=== PATIENT | male | born 1950 | race Caucasian/White ===

== ENCOUNTER 2019-03-13 13:35 | Inpatient (IN) | payer OTHER, MEDICARE ==
[~2019-03-13] VITALS: Ht 182.9 cm; Wt 103.0 kg
[2019-03-13] MEDS ORDERED: predniSONE 20 MG TABLET PO ONE (14:30)
[2019-03-13 14:45] VITALS: BP 171/99
--- NOTE | 2019-03-13 14:55 | RAD ---
CT HEAD WO CONTRAST Clinical indications: Left lower extremity weakness. COMPARISON: None available. Technique: Noncontrast axial cross sectional scanning of the head was performed. PQRS compliance Statement One or more of the following individualized dose reduction techniques were utilized for this study: 1. Automated exposure control 2. Adjustment of the mA and/or kV according to patient size 3. Use of iterative reconstruction technique Findings: No acute intracranial hemorrhage or midline shift or mass-effect or hydrocephalus or extra-axial fluid collection is seen. No focal hypodense area or sulci effacement is seen to indicate an acute infarct or edema radiographically. No skull fracture or pneumocephalus is seen. No opacification of the mastoid sinuses or the middle ear cavities or the paranasal sinuses is seen. The maxillary sinuses are not completely seen in this study. Impression: No acute intracranial abnormality is seen. Electronically signed by: Kaden Reilly MD (03/13/2019 2:51 PM) [id number]
--- NOTE | 2019-03-13 14:59 | RAD ---
4 view study of the left knee Clinical indications: Left knee pain. No known injury. FINDINGS: No acute fracture or dislocation or lytic process is seen. The patella is normally aligned. There is mild degenerative spurring of the patellofemoral joint compartment. No significant joint space narrowing or spurring of the medial or lateral tibiofemoral joint compartments is seen. No significant left knee joint effusion is seen radiographically. Calcified arterial atheromatous disease is present IMPRESSION: No significant osseous abnormality. Electronically signed by: Kaden Reilly MD (03/13/2019 2:56 PM) [email or web address]
--- NOTE | 2019-03-13 15:03 | RAD ---
AP view of the pelvis and two-view study of the left hip Clinical indications: Left hip pain. No known injury. FINDINGS: No acute fracture or dislocation is seen. There is a radiolucent lesion of the left iliac bone measuring 3.9 cm. There is a radiolucent lesion of the proximal shaft of the left femur measuring 7.8 cm in length. Proximal to this area in the subtrochanteric region of the proximal femur is another smaller lucent lesion measuring 1.2 cm. Synovial cyst of the left femoral neck is seen. IMPRESSION: Lytic lesions of the proximal left femur and the left iliac bone consistent with osseous metastatic disease or multiple myeloma. No acute fracture. The lesion within the proximal left femoral shaft occupies the entire width of the shaft here. There is endosteal scalloping as well. Therefore, this may predispose to pathologic fracture. Electronically signed by: Kaden Reilly MD (03/13/2019 3:00 PM) [email or web address]
--- NOTE | 2019-03-13 15:07 | RAD ---
Three-view study lumbar spine Clinical indications: Low back pain. FINDINGS: No compression fracture discitis or lytic process is evident. No anterolisthesis is evident. There is partial autofusion of L4-5 and L5-S1 disc spaces. Asymmetric syndesmophytes are seen. There is asymmetric ankylosis of the upper aspect of the left SI joint. Findings may be seen with seronegative spondyloarthropathy. The transverse processes are intact. IMPRESSION: No acute compression fracture. Seronegative spondyloarthropathy. Electronically signed by: Kaden Reilly MD (03/13/2019 3:04 PM) [email or web address]
[2019-03-13 16:23] LABS: BASO # 0.1 x10^3/uL (0.0-0.2); BASO % 1 % (0-3); EOS # 0.2 x10^3/uL (0.0-0.7); EOS % 2 % (0-3); HEMOGLOBIN 16.8 g/dL (13.0-17.5); LYMPH % 10 % (24-48); MEAN CORPUSCULAR HEMOGLOBIN 36 pg (25-35); MEAN CORPUSCULAR HGB CONC 36 g/dL (31-37); MEAN CORPUSCULAR VOLUME 100 fL (79-100); MONO % 10 % (0-9); NEUT # 7.4 x10^3/uL (1.8-7.7); NEUT % 76 % (31-73); PLATELET COUNT 112 x10^3/uL (140-400); RED BLOOD COUNT 4.72 x10^6/uL (4.30-5.70); RED CELL DISTRIBUTION WIDTH 12.9 % (11.5-14.5); WHITE BLOOD COUNT 9.7 x10^3/uL (4.0-11.0)
[2019-03-13 16:29] LABS: PROTHROMBIN TIME PATIENT 16.2 SEC (11.7-14.0)
[2019-03-13] MEDS ORDERED: ACETAMINOPHEN 325 MG TABLET. PO PRN (16:30)
[2019-03-13] MEDS ORDERED: ONDANSETRON PF 4 MG/2 ML VIAL. IV PRN (16:30)
[2019-03-13] MEDS ORDERED: MORPHINE SULFATE 4 MG/ML VIAL. IV PRN (16:30)
[2019-03-13 16:42] LABS: CALCIUM 9.7 mg/dL (8.5-10.1); CREATININE 0.8 mg/dL (0.7-1.3); GFR 96.4; POTASSIUM 3.9 mmol/L (3.5-5.1)
[2019-03-13 16:52] LABS: ALBUMIN 3.6 g/dL (3.4-5.0); ALBUMIN/GLOBULIN RATIO 0.9 (1.0-1.7); TOTAL PROTEIN 7.4 g/dL (6.4-8.2)
--- NOTE | 2019-03-13 18:05 | PHYS DOC ---
Past Medical History Past Medical History: Hypertension Past Surgical History: Other Additional Past Surgical Histo: SKIN CANCER REMOVED Alcohol Use: None Drug Use: None Adult General Chief Complaint Chief Complaint: LOWER EXT PAIN HPI HPI Patient is a 68 year old male with history of hypertension who presents to the ED today complaining of mild pain on the left thigh that began on Sunday. Patient states the pain is worse when he is bearing weight on the left lower extremity. He states he feels like his left leg will give out he he bears weight on it. Patient denies any injury. Denies anything specifically relieving the pain. He describes the pain as sharp and intermittent. Review of Systems Review of Systems Constitutional: Denies fever or chills [] Eyes: Denies change in visual acuity, redness, or eye pain [] HENT: Denies nasal congestion or sore throat [] Respiratory: Denies cough or shortness of breath [] Cardiovascular: No additional information not addressed in HPI [] GI: Denies abdominal pain, nausea, vomiting, bloody stools or diarrhea [] : Denies dysuria or hematuria [] Musculoskeletal: Reports left thigh pain Integument: Denies rash or skin lesions [] Neurologic: Denies headache, focal weakness or sensory changes [] All other systems were reviewed and found to be within normal limits, except as documented in this note. Current Medications Current Medications Current Medications Medications (Trade) Dose Ordered Sig/Babita Start Time Stop Time Status Last Admin Dose Admin Prednisone (Prednisone) 60 mg 1X ONCE 03/13/19 14:30 03/13/19 14:31 DC 03/13/19 14:52 60 MG Allergies Allergies Allergies Coded Allergies Type Severity Reaction Last Updated Verified No Known Drug Allergies 03/13/19 No Physical Exam Physical Exam Constitutional: Well developed, well nourished, no acute distress, non-toxic appearance. [] HENT: Normocephalic, atraumatic, bilateral external ears normal, oropharynx moist, no oral exudates, nose normal. [] Eyes: PERRLA, EOMI, conjunctiva normal, no discharge. [] Neck: Normal range of motion, no tenderness, supple, no stridor. [] Cardiovascular:Heart rate regular rhythm, no murmur [] Lungs & Thorax: Bilateral breath sounds clear to auscultation [] Abdomen: Bowel sounds normal, soft, no tenderness, no masses, no pulsatile masses. [] Skin: Warm, dry, no erythema, no rash. [] Back: No tenderness, no CVA tenderness. [] Extremities: No tenderness, no cyanosis, no clubbing, ROM intact, no edema. On weight bearing patient is favoring the LLE Neurologic: Alert and oriented X 3, normal motor function, normal sensory function, no focal deficits noted. [] Psychologic: Affect normal, judgement normal, mood normal. [] Current Patient Data Vital Signs Vital Signs Date Time Temp Pulse Resp B/P (MAP) Pulse Ox O2 Delivery O2 Flow Rate FiO2 03/13/19 14:02 98.0 78 20 201/115 (143) 98 Room Air 98.0 EKG EKG [] Radiology/Procedures Radiology/Procedures []PROCEDURE: CT HEAD WO CONTRAST CT HEAD WO CONTRAST Clinical indications: Left lower extremity weakness. COMPARISON: None available. Technique: Noncontrast axial cross sectional scanning of the head was performed. PQRS compliance Statement One or more of the following individualized dose reduction techniques were utilized for this study: 1. Automated exposure control 2. Adjustment of the mA and/or kV according to patient size 3. Use of iterative reconstruction technique Findings: No acute intracranial hemorrhage or midline shift or mass-effect or hydrocephalus or extra-axial fluid collection is seen. No focal hypodense area or sulci effacement is seen to indicate an acute infarct or edema radiographically. No skull fracture or pneumocephalus is seen. No opacification of the mastoid sinuses or the middle ear cavities or the paranasal sinuses is seen. The maxillary sinuses are not completely seen in this study. Impression: No acute intracranial abnormality is seen. Electronically signed by: Kaden Reilly MD (03/13/2019 2:51 PM) [email or web address] DICTATED and SIGNED BY: KADEN REILLY MD DATE: 03/13/19 1451 PROCEDURE: KNEE LEFT 4V 4 view study of the left knee Clinical indications: Left knee pain. No known injury. FINDINGS: No acute fracture or dislocation or lytic process is seen. The patella is normally aligned. There is mild degenerative spurring of the patellofemoral joint compartment. No significant joint space narrowing or spurring of the medial or lateral tibiofemoral joint compartments is seen. No significant left knee joint effusion is seen radiographically. Calcified arterial atheromatous disease is present IMPRESSION: No significant osseous abnormality. Electronically signed by: Kaden Reilly MD (03/13/2019 2:56 PM) [id number] DICTATED and SIGNED BY: KADEN REILLY MD DATE: 03/13/19 1456 PROCEDURE: LUMBAR SPINE 2-3V Three-view study lumbar spine Clinical indications: Low back pain. FINDINGS: No compression fracture discitis or lytic process is evident. No anterolisthesis is evident. There is partial autofusion of L4-5 and L5-S1 disc spaces. Asymmetric syndesmophytes are seen. There is asymmetric ankylosis of the upper aspect of the left SI joint. Findings may be seen with seronegative spondyloarthropathy. The transverse processes are intact. IMPRESSION: No acute compression fracture. Seronegative spondyloarthropathy. Electronically signed by: Kaden Reilly MD (03/13/2019 3:04 PM) [id number] DICTATED and SIGNED BY: AKDEN REILLY MD DATE: 03/13/19 1504 PROCEDURE: LUMBAR SPINE 2-3V Three-view study lumbar spine Clinical indications: Low back pain. FINDINGS: No compression fracture discitis or lytic process is evident. No anterolisthesis is evident. There is partial autofusion of L4-5 and L5-S1 disc spaces. Asymmetric syndesmophytes are seen. There is asymmetric ankylosis of the upper aspect of the left SI joint. Findings may be seen with seronegative spondyloarthropathy. The transverse processes are intact. IMPRESSION: No acute compression fracture. Seronegative spondyloarthropathy. Electronically signed by: Kaden Reilly MD (03/13/2019 3:04 PM) [id number] DICTATED and SIGNED BY: KADEN REILLY MD DATE: 03/13/19 1504 PROCEDURE: HIP LEFT 2V WITH PELVIS AP view of the pelvis and two-view study of the left hip Clinical indications: Left hip pain. No known injury. FINDINGS: No acute fracture or dislocation is seen. There is a radiolucent lesion of the left iliac bone measuring 3.9 cm. There is a radiolucent lesion of the proximal shaft of the left femur measuring 7.8 cm in length. Proximal to this area in the subtrochanteric region of the proximal femur is another smaller lucent lesion measuring 1.2 cm. Synovial cyst of the left femoral neck is seen. IMPRESSION: Lytic lesions of the proximal left femur and the left iliac bone consistent with osseous metastatic disease or multiple myeloma. No acute fracture. The lesion within the proximal left femoral shaft occupies the entire width of the shaft here. There is endosteal scalloping as well. Therefore, this may predispose to pathologic fracture. Electronically signed by: Kaden Reilly MD (03/13/2019 3:00 PM) [email or web address] DICTATED and SIGNED BY: KADEN REILLY MD DATE: 03/13/19 1500 Course & Med Decision Making Course & Med Decision Making Pertinent Labs and Imaging studies reviewed. (See chart for details) This is a 68-year-old male patient presenting to the ED today complaining of left thigh pain since Sunday. Left hip x-rays including pelvis and femur x-rays noted for-Lytic lesions of the proximal left femur and the left iliac bone consistent with osseous metastatic disease or multiple myeloma. Spoke with Dr. Fleming who accepted patient for admission Spoke to 's APPEALS NURSE who will relay message to Dr. Lonnie Blackmon Disclaimer Lorri Disclaimer This electronic medical record was generated, in whole or in part, using a voice recognition dictation system. Departure Departure Impression: Primary Impression: Multiple myeloma Disposition: ADMITTED INPATIENT Condition: STABLE Referrals: UNKNOWN PCP NAME (PCP) Problem Qualifiers Primary Impression: Multiple myeloma Multiple myeloma remission status: unspecified Qualified Codes: C90.00 - Multiple myeloma not having achieved remission RM DEL TORO APRN Mar 13, 2019 18:05
--- NOTE | 2019-03-13 18:11 | HP ---
ADMIT DATE: 03/13/2019 CHIEF COMPLAINT: Left leg pain. HISTORY OF PRESENT ILLNESS: The patient is a pleasant middle-aged male, who presented with left leg pain. It is going from the hip down below the knee. We initially thought it might be sciatica, but we did some imaging showing a lytic lesion suspicious for multiple myeloma. I discussed the case with ER physician. We are going to admit the patient and consult Dr. Braden. PAST MEDICAL HISTORY: Benign. ALLERGIES: None. FAMILY HISTORY: Diabetes. SOCIAL HISTORY: Does not drink, smoke or take drugs. MEDICATIONS: Reviewed, please refer to the MRAD. REVIEW OF SYSTEMS: GENERAL: No history of weight change, weakness or fevers. SKIN: No bruising, hair changes or rashes. EYES: No blurred, double or loss of vision. NOSE AND THROAT: No history of nosebleeds, hoarseness or sore throat. HEART: No history of palpitations, chest pain or shortness of breath on exertion. LUNGS: Denies cough, hemoptysis, wheezing or shortness of breath. GASTROINTESTINAL: Denies changes in appetite, nausea, vomiting, diarrhea or constipation. GENITOURINARY: No history of frequency, urgency, hesitancy or nocturia. NEUROLOGIC: Denies history of numbness, tingling, tremor or weakness. PSYCHIATRIC: No history of panic, anxiety or depression. ENDOCRINE: No history of heat or cold intolerance, polyuria or polydipsia. EXTREMITIES: He complains of left leg pain. PHYSICAL EXAMINATION: VITALS: Within normal limits and are stable. GENERAL: No apparent distress. Alert and oriented. HEENT: Head is normocephalic, atraumatic, pupils were equally round and reactive to light and accommodation. NECK: Supple, no JVD, no thyromegaly was noted. LUNGS: Clear to auscultation in all lung vu without rhonchi or wheezing. HEART: RRR, S1, S2 present. Peripheral pulses intact, no obvious murmurs were noted. ABDOMEN: Soft, nontender. Positive bowel sounds no organomegaly, normal bowel sounds. EXTREMITIES: The left leg is tender to touch, but otherwise normal. NEUROLOGIC: Normal speech, normal tone. A & O x3, moves all extremities, no obvious focal deficits. PSYCHIATRIC: Normal affect, normal mood. Stable. SKIN: No ulcerations or rashes, good skin turgor, no jaundice. VASCULAR: Good capillary refill, neurovascular bundle appears to be intact. LABORATORY DATA: White count is 9, hemoglobin 16.8, platelets 112. INR is 1.3. Electrolytes are normal other than glucose of 258, AST little high at 39, albumin normal at 3.6. ASSESSMENT AND PLAN: Lytic lesion of the left leg with pain, suspect possible multiple myeloma. The patient has been admitted. We will consult Dr. Braden. IV fluids, home meds, frequent labs, PT, OT, DVT prophylaxis. Full code. PATY BRUCE DO DR: NELIDA/andria JOB#: [id number] / [id number]
--- NOTE | 2019-03-13 18:18 | NUR ---
This RN received report from ERI Rick in ER at approx 1630. Pt arrived on unit at approx 1700. Pt oriented to room, call light, and fresh water given. Pt reports no pain at this time. Will continue to monitor pt.
[2019-03-13] MEDS: IV NORMAL SALINE 1000ML BAG 1,000 ML IV SCH (18:30)
[2019-03-13 19:00] VITALS: BP 150/86
[2019-03-13 23:00] VITALS: BP 139/75
[2019-03-14 03:00] VITALS: BP 151/89
[2019-03-14] MEDS: IV NORMAL SALINE 1000ML BAG 1,000 ML IV SCH ×2 (05:36→20:10)
[2019-03-14 07:00] VITALS: BP 179/79
[2019-03-14] MEDS ORDERED: CONTRAST GIVEN. MC PRN (09:30)
[2019-03-14] MEDS ORDERED: IOHEXOL 300 MG/ML 100ML VIAL. IV ONE (09:30)
[2019-03-14] MEDS ORDERED: IOHEXOL 240 MG/ML 50ML VIAL. PO ONE (09:30)
--- NOTE | 2019-03-14 10:15 | NUR ---
Assumed pt care at this time. Pt in bed watching TV. NPO for procedure. Denies any needs at this time. Call light within reach. Will return to monitor.
--- NOTE | 2019-03-14 10:51 | NUR ---
Received call from David in [place] he would like to hydrate pt for bone scan. Requesting pt drinks a pitcher of water. Updated pt on POC and filled water pitcher.
[2019-03-14 11:00] VITALS: BP 136/79
[2019-03-14] MEDS ORDERED: DEXTROSE 50% 25 GM / 50ML DISP.SYRIN. IV PRN (12:00)
[2019-03-14] MEDS: INSULIN LISPRO 300 UNITS/3 ML VIAL. SQ SCH ×2 (12:00→17:00)
--- NOTE | 2019-03-14 13:13 | CONS ---
DATE OF CONSULTATION: 03/14/2019 REQUESTING PHYSICIAN: Ferdinand Fleming MD REASON FOR CONSULTATION: Lytic bone lesions concerning for metastasis versus multiple myeloma. HISTORY OF PRESENT ILLNESS: The patient is a 68-year-old gentleman with a history of hypertension, who presented to the Emergency Room at [facility] on 03/13/2019 with complaints of pain in the left thigh region that began a few weeks prior to admission, but significantly worse from 03/09/2019. He feels that he is not able to bear weight on the left lower extremity and he is afraid that he is going to give away. He denies any injuries. He denies any other bone pains. No fevers, chills or night sweats. No loss of weight or loss of appetite. No hematemesis, melena or hematochezia. No dysphagia. No hemoptysis or hematuria. He underwent further workup with x-rays of the left hip and pelvis on 03/13/2019, which revealed lytic lesions of the proximal left femur and the left iliac bone consistent with osseous metastatic disease or multiple myeloma. The lesion within the proximal left femoral shaft occupies the entire width of the shaft and there is endosteal scalloping as well. Therefore, this may predispose to pathologic fracture. He underwent a CT scan of the head without contrast on 03/13/2019 which revealed no acute intracranial abnormalities. X-rays of the lumbar spine did not reveal any acute compression fracture. I was asked to see the patient for further evaluation of possible bone metastasis. PAST MEDICAL HISTORY: Hypertension and skin cancer. SOCIAL HISTORY: No smoking or alcohol abuse. He has been chewing tobacco for at least 25 years prior to admission to [facility]. FAMILY HISTORY: Negative for malignancy. REVIEW OF SYSTEMS: A 12-point review of system was performed. Pertinent positives are mentioned in the history of present illness. Rest of the system review is negative. PHYSICAL EXAMINATION: GENERAL APPEARANCE: The patient is a 68-year-old gentleman who is well built and nourished and in no acute cardiorespiratory distress. VITAL SIGNS: Blood pressure 136/79, temperature 97.6. HEENT: Atraumatic, normocephalic. EYES: No icterus. NECK: Supple. CHEST: Bilaterally symmetrical. No crepitations or rhonchi heard. HEART: S1, S2 normal. ABDOMEN: Soft, nontender. CENTRAL NERVOUS SYSTEM: No focal deficits. LYMPHATICS: No lymphadenopathy. SKIN: No rashes. PSYCHOLOGIC: Mood and affect are appropriate. MUSCULOSKELETAL: No joint effusions. LABORATORY DATA: WBC 9.7, hemoglobin 16.8, platelet count 112. Sodium 138, potassium 3.9, creatinine 0.8, glucose 258, calcium 9.7, total bilirubin 1.0, AST 39, ALT 34, alkaline phosphatase 91, total protein 7.4, albumin 3.6. PSA of 1.25. IMPRESSION AND PLAN: 1. Bone lesions clinically consistent with bone metastasis. X-rays of the hip and pelvis on 03/13/2019 revealed lytic lesions of the proximal left femur and left iliac bone consistent with osseous metastatic disease or multiple myeloma. The lesion within the proximal left femoral shaft occupies the entire width of the shaft and this may predispose to pathologic fracture. Hence, I will consult Orthopedic Surgery for possible prophylactic surgery. I will also consult Interventional Radiology for biopsy. I will consult Radiation Oncology in preparation for possible need for palliative radiation therapy subsequently. Since the hemoglobin, creatinine and calcium are normal, it is unlikely that this is multiple myeloma. However, I will obtain serum protein electrophoresis and immunofixation studies and serum free light chains. I will obtain a CT chest, abdomen and pelvis to evaluate for primary malignancy. PSA normal at 1.25 on 03/14/2019. I will also obtain a bone scan to evaluate the rest of the bones. I discussed in detail with the patient and he understands and agrees with the plan. I will continue to monitor closely. 2. Thrombocytopenia, mild. Hemoglobin and WBC is normal, but the platelets are 112 on 03/13/2019. I will continue to monitor. ESTHER BOURGEOIS MD DR: SHELLEY/andria JOB#: [id number] / [id number] [place]
[2019-03-14] MEDS ORDERED: IOHEXOL 240 MG/ML 50ML VIAL. ONE (14:25)
[2019-03-14] MEDS ORDERED: IOHEXOL 300 MG/ML 100ML VIAL. ONE (14:26)
[2019-03-14 15:00] VITALS: BP 177/98
--- NOTE | 2019-03-14 15:54 | PDOC ---
PROGRESS NOTES Chief Complaint Chief Complaint bone lesion, suspect malignancy weakness, compromise str of femur, high risk of fracture, may need surg hip pain obese, BMI 31 History of Present Illness History of Present Illness onc, rad onc consult, w/u lesion, myeloma poss, but no skull lesions ortho consult for hip bone weakness, Dr. De Anda reviewed all labs and images with patient, I participated some, bone biopsy under CT planned for 03/17 Vitals Vitals Vital Signs Date Time Temp Pulse Resp B/P (MAP) Pulse Ox O2 Delivery O2 Flow Rate FiO2 03/14/19 15:00 97.7 80 16 177/98 (124) 94 Room Air 97.7 Physical Exam General: Alert, Cooperative, No acute distress Heart: Normal S1, Normal S2 Lungs: Wheezing Abdomen: Soft Extremities: No clubbing Skin: No rashes, No breakdown Labs LABS Laboratory Tests Test 03/13/19 16:07 03/14/19 10:10 White Blood Count 9.7 x10^3/uL (4.0-11.0) Red Blood Count 4.72 x10^6/uL (4.30-5.70) Hemoglobin 16.8 g/dL (13.0-17.5) Hematocrit 47.0 % (39.0-53.0) Mean Corpuscular Volume 100 fL (79-100) Mean Corpuscular Hemoglobin 36 pg (25-35) Mean Corpuscular Hemoglobin Concent 36 g/dL (31-37) Red Cell Distribution Width 12.9 % (11.5-14.5) Platelet Count 112 x10^3/uL (140-400) Neutrophils (%) (Auto) 76 % (31-73) Lymphocytes (%) (Auto) 10 % (24-48) Monocytes (%) (Auto) 10 % (0-9) Eosinophils (%) (Auto) 2 % (0-3) Basophils (%) (Auto) 1 % (0-3) Neutrophils # (Auto) 7.4 x10^3/uL (1.8-7.7) Lymphocytes # (Auto) 1.0 x10^3/uL (1.0-4.8) Monocytes # (Auto) 1.0 x10^3/uL (0.0-1.1) Eosinophils # (Auto) 0.2 x10^3/uL (0.0-0.7) Basophils # (Auto) 0.1 x10^3/uL (0.0-0.2) Prothrombin Time 16.2 SEC (11.7-14.0) Prothromb Time International Ratio 1.3 (0.8-1.1) Activated Partial Thromboplast Time 30 SEC (24-38) Sodium Level 138 mmol/L (136-145) Potassium Level 3.9 mmol/L (3.5-5.1) Chloride Level 99 mmol/L (98-107) Carbon Dioxide Level 29 mmol/L (21-32) Anion Gap 10 (6-14) Blood Urea Nitrogen 13 mg/dL (8-26) Creatinine 0.8 mg/dL (0.7-1.3) Estimated GFR (Cockcroft-Gault) 96.4 BUN/Creatinine Ratio 16 (6-20) Glucose Level 258 mg/dL (70-99) Calcium Level 9.7 mg/dL (8.5-10.1) Total Bilirubin 1.0 mg/dL (0.2-1.0) Aspartate Amino Transf (AST/SGOT) 39 U/L (15-37) Alanine Aminotransferase (ALT/SGPT) 34 U/L (16-63) Alkaline Phosphatase 91 U/L (46-116) Total Protein 7.4 g/dL (6.4-8.2) Albumin 3.6 g/dL (3.4-5.0) Albumin/Globulin Ratio 0.9 (1.0-1.7) Prostate Specific Antigen 1.25 ng/mL (0.00-4.00) Assessment and Plan Assessmemt and Plan Problems Medical Problems: (1) Multiple myeloma Status: Acute Comment Review of Relevant I have reviewed the following items terese (where applicable) has been applied. Labs Laboratory Tests Test 03/13/19 16:07 03/14/19 10:10 White Blood Count 9.7 x10^3/uL (4.0-11.0) Red Blood Count 4.72 x10^6/uL (4.30-5.70) Hemoglobin 16.8 g/dL (13.0-17.5) Hematocrit 47.0 % (39.0-53.0) Mean Corpuscular Volume 100 fL (79-100) Mean Corpuscular Hemoglobin 36 pg (25-35) Mean Corpuscular Hemoglobin Concent 36 g/dL (31-37) Red Cell Distribution Width 12.9 % (11.5-14.5) Platelet Count 112 x10^3/uL (140-400) Neutrophils (%) (Auto) 76 % (31-73) Lymphocytes (%) (Auto) 10 % (24-48) Monocytes (%) (Auto) 10 % (0-9) Eosinophils (%) (Auto) 2 % (0-3) Basophils (%) (Auto) 1 % (0-3) Neutrophils # (Auto) 7.4 x10^3/uL (1.8-7.7) Lymphocytes # (Auto) 1.0 x10^3/uL (1.0-4.8) Monocytes # (Auto) 1.0 x10^3/uL (0.0-1.1) Eosinophils # (Auto) 0.2 x10^3/uL (0.0-0.7) Basophils # (Auto) 0.1 x10^3/uL (0.0-0.2) Prothrombin Time 16.2 SEC (11.7-14.0) Prothromb Time International Ratio 1.3 (0.8-1.1) Activated Partial Thromboplast Time 30 SEC (24-38) Sodium Level 138 mmol/L (136-145) Potassium Level 3.9 mmol/L (3.5-5.1) Chloride Level 99 mmol/L (98-107) Carbon Dioxide Level 29 mmol/L (21-32) Anion Gap 10 (6-14) Blood Urea Nitrogen 13 mg/dL (8-26) Creatinine 0.8 mg/dL (0.7-1.3) Estimated GFR (Cockcroft-Gault) 96.4 BUN/Creatinine Ratio 16 (6-20) Glucose Level 258 mg/dL (70-99) Calcium Level 9.7 mg/dL (8.5-10.1) Total Bilirubin 1.0 mg/dL (0.2-1.0) Aspartate Amino Transf (AST/SGOT) 39 U/L (15-37) Alanine Aminotransferase (ALT/SGPT) 34 U/L (16-63) Alkaline Phosphatase 91 U/L (46-116) Total Protein 7.4 g/dL (6.4-8.2) Albumin 3.6 g/dL (3.4-5.0) Albumin/Globulin Ratio 0.9 (1.0-1.7) Prostate Specific Antigen 1.25 ng/mL (0.00-4.00) Laboratory Tests Test 03/13/19 16:07 03/14/19 10:10 White Blood Count 9.7 x10^3/uL (4.0-11.0) Red Blood Count 4.72 x10^6/uL (4.30-5.70) Hemoglobin 16.8 g/dL (13.0-17.5) Hematocrit 47.0 % (39.0-53.0) Mean Corpuscular Volume 100 fL (79-100) Mean Corpuscular Hemoglobin 36 pg (25-35) Mean Corpuscular Hemoglobin Concent 36 g/dL (31-37) Red Cell Distribution Width 12.9 % (11.5-14.5) Platelet Count 112 x10^3/uL (140-400) Neutrophils (%) (Auto) 76 % (31-73) Lymphocytes (%) (Auto) 10 % (24-48) Monocytes (%) (Auto) 10 % (0-9) Eosinophils (%) (Auto) 2 % (0-3) Basophils (%) (Auto) 1 % (0-3) Neutrophils # (Auto) 7.4 x10^3/uL (1.8-7.7) Lymphocytes # (Auto) 1.0 x10^3/uL (1.0-4.8) Monocytes # (Auto) 1.0 x10^3/uL (0.0-1.1) Eosinophils # (Auto) 0.2 x10^3/uL (0.0-0.7) Basophils # (Auto) 0.1 x10^3/uL (0.0-0.2) Prothrombin Time 16.2 SEC (11.7-14.0) Prothromb Time International Ratio 1.3 (0.8-1.1) Activated Partial Thromboplast Time 30 SEC (24-38) Sodium Level 138 mmol/L (136-145) Potassium Level 3.9 mmol/L (3.5-5.1) Chloride Level 99 mmol/L (98-107) Carbon Dioxide Level 29 mmol/L (21-32) Anion Gap 10 (6-14) Blood Urea Nitrogen 13 mg/dL (8-26) Creatinine 0.8 mg/dL (0.7-1.3) Estimated GFR (Cockcroft-Gault) 96.4 BUN/Creatinine Ratio 16 (6-20) Glucose Level 258 mg/dL (70-99) Calcium Level 9.7 mg/dL (8.5-10.1) Total Bilirubin 1.0 mg/dL (0.2-1.0) Aspartate Amino Transf (AST/SGOT) 39 U/L (15-37) Alanine Aminotransferase (ALT/SGPT) 34 U/L (16-63) Alkaline Phosphatase 91 U/L (46-116) Total Protein 7.4 g/dL (6.4-8.2) Albumin 3.6 g/dL (3.4-5.0) Albumin/Globulin Ratio 0.9 (1.0-1.7) Prostate Specific Antigen 1.25 ng/mL (0.00-4.00) Medications Current Medications Prednisone (Prednisone) 60 mg 1X ONCE PO Last administered on 03/13/19at 14:52; Start 03/13/19 at 14:30; Stop 03/13/19 at 14:31; Status DC Ondansetron HCl (Zofran) 4 mg PRN Q8HRS PRN IV NAUSEA/VOMITING; Start 03/13/19 at 16:30; Stop 03/14/19 at 16:29 Morphine Sulfate (Morphine Sulfate) 4 mg PRN Q2HR PRN IV PAIN; Start 03/13/19 at 16:30; Stop 03/14/19 at 16:29 Acetaminophen (Tylenol) 650 mg PRN Q4HRS PRN PO FEVER; Start 03/13/19 at 16:30; Stop 03/14/19 at 16:29 Sodium Chloride 1,000 ml @ 75 mls/hr [id number] IV Last administered on 03/14/19at 05:36; Start 03/13/19 at 17:30 Iohexol (Omnipaque 240 Mg/ml) 30 ml 1X ONCE PO Last administered on 03/14/19at 09:30; Start 03/14/19 at 09:30; Stop 03/14/19 at 09:31; Status DC Iohexol (Omnipaque 300 Mg/ml) 75 ml 1X ONCE IV Last administered on 03/14/19at 14:44; Start 03/14/19 at 09:30; Stop 03/14/19 at 09:31; Status DC Info (CONTRAST GIVEN -- Rx MONITORING) 1 each PRN DAILY PRN MC SEE COMMENTS; Start 03/14/19 at 09:30; Stop 03/16/19 at 09:29 Insulin Human Lispro (HumaLOG) 0-7 UNITS TIDWMEALS SQ ; Start 03/14/19 at 12:00 Dextrose (Dextrose 50%-Water Syringe) 12.5 gm PRN Q15MIN PRN IV SEE COMMENTS; Start 03/14/19 at 12:00 Iohexol (Omnipaque 240 Mg/ml) 50 ml STK-MED ONCE .ROUTE ; Start 03/14/19 at 14:25; Stop 03/14/19 at 14:26; Status DC Iohexol (Omnipaque 300 Mg/ml) 100 ml STK-MED ONCE .ROUTE ; Start 03/14/19 at 14: 26; Stop 03/14/19 at 14:26; Status DC Vitals/I & O Vital Sign - Last 24 Hours 03/13/19 03/13/19 03/13/19 03/13/19 16:08 16:37 17:00 19:00 Temp 97.7 97.7 Pulse 78 88 78 Resp 18 20 B/P (MAP) 198/94 (128) 175/103 (127) 150/86 (107) Pulse Ox 93 95 95 O2 Delivery Room Air Room Air Room Air Room Air 03/13/19 03/13/19 03/14/19 03/14/19 20:00 23:00 03:00 07:00 Temp 98.4 97.4 97.7 98.4 97.4 97.7 Pulse 72 73 69 Resp 20 20 18 B/P (MAP) 139/75 (96) 151/89 (109) 179/79 (112) Pulse Ox 94 98 96 O2 Delivery Room Air Room Air Room Air Room Air 03/14/19 03/14/19 03/14/19 08:00 11:00 15:00 Temp 97.6 97.7 97.6 97.7 Pulse 73 80 Resp 16 16 B/P (MAP) 136/79 (98) 177/98 (124) Pulse Ox 95 94 O2 Delivery Room Air Room Air Room Air Intake and Output 03/13/19 03/13/19 03/14/19 15:00 23:00 07:00 Intake Total 700 ml 440 ml Balance 700 ml 440 ml MAYNOR BUTTS MD Mar 14, 2019 15:54
--- NOTE | 2019-03-14 17:20 | RAD ---
Whole body bone scan Clinical indications: Bone metastatic disease. Left leg pain. TECHNIQUE: After IV infusion of 25 mCi of technetium 99m MDP, delayed anterior and posterior planar images of the skeleton were performed. Additional left and right lateral planar images of the proximal femurs were performed. COMPARISON: No previous bone scan available. FINDINGS: Bilateral renal function is evident. There is degenerative radiotracer activity seen involving the sternoclavicular joints and the AC joints and the knee joints and the feet bilaterally. There is mild degenerative activity seen involving the hip joints bilaterally. There is moderate degenerative arthritis involving the SI joints bilaterally. There is activity seen involving the thoracic and lumbar spine which is mainly lateral in position and therefore may be degenerative in nature. There is a focus of uptake involving the posterior left 11th rib which could be posttraumatic or metastatic in nature. Chest CT performed today demonstrates a lytic lesion here with a pathologic fracture. There is abnormal activity seen involving the proximal shaft of the left femur which could be due to metastatic disease or trauma. However, radiographic study dated March 13, 2019 demonstrates a lytic lesion here. The other lytic lesion seen within the subtrochanteric area of the proximal left femur and the lytic lesion within the left iliac bone cannot be seen by bone scan. 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 Electronically signed by: Kaden Reilly MD (03/14/2019 5:17 PM) [id number]
--- NOTE | 2019-03-14 17:45 | RAD ---
CT study of the chest and abdomen and pelvis with contrast Clinical indications: Bone metastatic disease seen on radiographic study of the left hip. TECHNIQUE: After IV infusion of 75 cc of Omnipaque 300, helical CT scanning of the chest and abdomen and pelvis was performed. GI contrast was administered per mouth. Preprocedure creatinine level was 0.8. PQRS compliance Statement One or more of the following individualized dose reduction techniques were utilized for this study: 1. Automated exposure control 2. Adjustment of the mA and/or kV according to patient size 3. Use of iterative reconstruction technique COMPARISON: No previous CT available. CHEST CT: Mediastinal lymph nodes are apparent and the largest lymph node is seen in the precarinal region measuring 14 mm. Otherwise no bulky thoracic lymphadenopathy is seen. No focal aneurysmal dilatation or dissection of thoracic aorta is seen. Calcified atheromatous disease of the coronary arteries is seen. The heart size is normal and no pericardial effusion is seen. No lung mass or lung consolidation is seen. No lung metastatic disease is seen. There is mild linear scarring or atelectasis of both lower lobes. No pleural effusion or pneumothorax is seen. The proximal bronchial tree is patent. There is a lytic lesion of the left side of the T2 vertebral body. There is a lytic lesion of the posterior left 11th rib and a pathologic fracture is seen here which is nondisplaced. There is a small lytic lesion of the posterior aspect of the right second rib. There is a small lytic lesion of the upper posterior aspect of the right 11th rib. There is a small lytic lesion of the posterior lateral aspect of the right ninth rib. Old healed right rib cage fractures are seen. IMPRESSION: Small mediastinal lymph nodes. No bulky thoracic lymphadenopathy. No lung mass or lung metastatic disease is seen. Linear atelectasis or scarring of both lower lobes. Osseous metastatic disease versus multiple myeloma involving T12 and bilateral rib cage. The left 11th rib lesion demonstrates a pathologic fracture which is nondisplaced. ABDOMEN AND PELVIS CT: Diffuse fatty infiltration of the liver is seen. The spleen is mildly enlarged measuring 13.5 cm in length. The spleen is homogeneous. Pancreas and gallbladder are normal. No extra hepatic biliary ductal dilatation is seen. No adrenal mass is evident. There is a small cyst of the mid to lower aspect of the right kidney. Otherwise both kidneys are normal without hydronephrosis or hydroureter. No focal aneurysmal dilatation of the abdominal aorta is seen. Urinary bladder wall is smooth. Prostate gland is mildly enlarged and indents the floor of the urinary bladder. The prostate gland measures 5.6 cm in transverse dimension. Seminal vesicles are symmetric. The appendix is normal. No obstructive bowel pattern is evident. No bowel wall thickening or soft tissue mass is evident. No mesenteric edema or free fluid or free air is seen. There is a lucent lesion of the inferior anterior aspect of the L4 vertebral body. A possible early lytic lesion of the right side of the L2 vertebral body is seen. There is a small lucent lesion of the posterior medial aspect of left Iliac bone. There are 2 lytic lesions which are expansile with cortical erosion of the left iliac bone more anteriorly within the left iliac crest and then more inferiorly. There are 2 small lytic lesions of the right ischial bone just below the acetabulum. A small lytic lesion of the subtrochanteric area of the proximal left femur is seen. IMPRESSION: Osseous metastatic disease versus multiple myeloma. No soft tissue mass or enlarged abdominal/pelvic lymphadenopathy or hepatic metastasis is seen. Diffuse fatty infiltration of the liver. Mild splenomegaly. Mild enlargement of the prostate gland. Electronically signed by: Kaden Reilly MD (03/14/2019 5:42 PM) [id number]
[2019-03-14 19:00] VITALS: BP 153/82
--- NOTE | 2019-03-14 19:58 | PDOC2 ---
CONSULT Date of Consult Date of Consult DATE: 03/14/19 TIME: 19:57 Reason for Consult Reason for Consult: Left femur lesion Identification/Chief Complaint Chief Complaint Left thigh pain Source Source: Chart review, Patient History of Present Illness Reason for Visit: This 68-year-old man comes in to the hospital with a one-week history of left thigh pain, and a 2 to three-week history of left rib/back pain. Workup shows a lytic lesion in the femur, pathologic rib fracture, and probable spine lesions. There is no known primary this time. A biopsy is planned on Sunday. He has a history of some skin cancers, treated about 3-1/2 years ago. He said he had a basal cell carcinoma treated as an outpatient by his PCP. It was recommended that he see a paper maker for follow-up for a lesion on his back but he never went. He has a discolored raised lesion on his left shoulder/back area. He chews tobacco but has not ever smoked. Past Medical History Past Medical History Basal cell skin carcinoma. Hypertension but he has neglected to take medicines recently. Cardiovascular: HTN Dermatology: Basal cell Past Surgical History Past Surgical History Outpatient basal cell skin carcinoma Family History Family History: Coronary Artery Disease, Diabetes, Heart Disease Social History Social History He "dips" tobacco but has never smoked. He lives with a friend and they are remodeling a home. 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 No ALCOHOL: occassional Lives: Roommate Current Problem List Problem List Problems Medical Problems: (1) Multiple myeloma Status: Acute Current Medications Current Medications Current Medications Prednisone (Prednisone) 60 mg 1X ONCE PO Last administered on 03/13/19at 14:52; Start 03/13/19 at 14:30; Stop 03/13/19 at 14:31; Status DC Ondansetron HCl (Zofran) 4 mg PRN Q8HRS PRN IV NAUSEA/VOMITING; Start 03/13/19 at 16:30; Stop 03/14/19 at 16:29; Status DC Morphine Sulfate (Morphine Sulfate) 4 mg PRN Q2HR PRN IV PAIN; Start 03/13/19 at 16:30; Stop 03/14/19 at 16:29; Status DC Acetaminophen (Tylenol) 650 mg PRN Q4HRS PRN PO FEVER; Start 03/13/19 at 16:30; Stop 03/14/19 at 16:29; Status DC Sodium Chloride 1,000 ml @ 75 mls/hr [id number] IV Last administered on 03/14/19at 05:36; Start 03/13/19 at 17:30 Iohexol (Omnipaque 240 Mg/ml) 30 ml 1X ONCE PO Last administered on 03/14/19at 09:30; Start 03/14/19 at 09:30; Stop 03/14/19 at 09:31; Status DC Iohexol (Omnipaque 300 Mg/ml) 75 ml 1X ONCE IV Last administered on 03/14/19at 14:44; Start 03/14/19 at 09:30; Stop 03/14/19 at 09:31; Status DC Info (CONTRAST GIVEN -- Rx MONITORING) 1 each PRN DAILY PRN MC SEE COMMENTS; Start 03/14/19 at 09:30; Stop 03/16/19 at 09:29 Insulin Human Lispro (HumaLOG) 0-7 UNITS TIDWMEALS SQ ; Start 03/14/19 at 12:00 Dextrose (Dextrose 50%-Water Syringe) 12.5 gm PRN Q15MIN PRN IV SEE COMMENTS; Start 03/14/19 at 12:00 Iohexol (Omnipaque 240 Mg/ml) 50 ml STK-MED ONCE .ROUTE ; Start 03/14/19 at 14:25; Stop 03/14/19 at 14:26; Status DC Iohexol (Omnipaque 300 Mg/ml) 100 ml STK-MED ONCE .ROUTE ; Start 03/14/19 at 14:26; Stop 03/14/19 at 14:26; Status DC Allergies Allergies: Coded Allergies: No Known Drug Allergies (Unverified , 03/13/19) ROS Review of System He denies any systemic symptoms. No weight loss. No cough or shortness of breath. No chest pain other than the left rib pain. General: No: Chills, Night Sweats Hematological and Lymphatic: No: Bleeding Problems, Blood Clots Respiratory: No: Cough, Shortness of breath, SOB with excertion Cardiovascular: No Chest Pain Gastrointestinal: No Nausea, No Vomiting, No Diarrhea, No Constipation Musculoskeletal: Yes Gait Disturbance, Yes Joint Pain Neurological: No Bowel/Bladder ControlChng Skin: Yes Mole Changes Physical Exam General: Alert, Cooperative, No acute distress HEENT: Atraumatic Lungs: Normal air movement Heart: Regular rate Abdomen: Soft Extremities: Other (tenderness of the left thigh but no deformity. No palpable mass. Distal neurovascular function is unremarkable.) Skin: Other (the left back over the shoulder blade area shows a 4mm discolored lesion, nearly black in color with irregular borders) Neuro: Normal speech, Sensation intact Psych/Mental Status: Mental status NL, Mood NL Vitals VITALS Vital Signs Date Time Temp Pulse Resp B/P (MAP) Pulse Ox O2 Delivery O2 Flow Rate FiO2 03/14/19 19:00 97.6 79 20 153/82 (105) 96 Room Air 97.6 Labs Labs Laboratory Tests Test 03/13/19 16:07 03/14/19 10:10 03/14/19 16:24 White Blood Count 9.7 x10^3/uL (4.0-11.0) Red Blood Count 4.72 x10^6/uL (4.30-5.70) Hemoglobin 16.8 g/dL (13.0-17.5) Hematocrit 47.0 % (39.0-53.0) Mean Corpuscular Volume 100 fL (79-100) Mean Corpuscular Hemoglobin 36 pg (25-35) Mean Corpuscular Hemoglobin Concent 36 g/dL (31-37) Red Cell Distribution Width 12.9 % (11.5-14.5) Platelet Count 112 x10^3/uL (140-400) Neutrophils (%) (Auto) 76 % (31-73) Lymphocytes (%) (Auto) 10 % (24-48) Monocytes (%) (Auto) 10 % (0-9) Eosinophils (%) (Auto) 2 % (0-3) Basophils (%) (Auto) 1 % (0-3) Neutrophils # (Auto) 7.4 x10^3/uL (1.8-7.7) Lymphocytes # (Auto) 1.0 x10^3/uL (1.0-4.8) Monocytes # (Auto) 1.0 x10^3/uL (0.0-1.1) Eosinophils # (Auto) 0.2 x10^3/uL (0.0-0.7) Basophils # (Auto) 0.1 x10^3/uL (0.0-0.2) Prothrombin Time 16.2 SEC (11.7-14.0) Prothromb Time International Ratio 1.3 (0.8-1.1) Activated Partial Thromboplast Time 30 SEC (24-38) Sodium Level 138 mmol/L (136-145) Potassium Level 3.9 mmol/L (3.5-5.1) Chloride Level 99 mmol/L (98-107) Carbon Dioxide Level 29 mmol/L (21-32) Anion Gap 10 (6-14) Blood Urea Nitrogen 13 mg/dL (8-26) Creatinine 0.8 mg/dL (0.7-1.3) Estimated GFR (Cockcroft-Gault) 96.4 BUN/Creatinine Ratio 16 (6-20) Glucose Level 258 mg/dL (70-99) Calcium Level 9.7 mg/dL (8.5-10.1) Total Bilirubin 1.0 mg/dL (0.2-1.0) Aspartate Amino Transf (AST/SGOT) 39 U/L (15-37) Alanine Aminotransferase (ALT/SGPT) 34 U/L (16-63) Alkaline Phosphatase 91 U/L (46-116) Total Protein 7.4 g/dL (6.4-8.2) Albumin 3.6 g/dL (3.4-5.0) Albumin/Globulin Ratio 0.9 (1.0-1.7) Prostate Specific Antigen 1.25 ng/mL (0.00-4.00) Glucose (Fingerstick) 165 mg/dL (70-99) Laboratory Tests Test 03/14/19 10:10 03/14/19 16:24 Prostate Specific Antigen 1.25 ng/mL (0.00-4.00) Glucose (Fingerstick) 165 mg/dL (70-99) Images Images CT abdomen and pelvis report reviewed images independently reviewed. Series 4 image 16 shows the left rib fracture. Hip and femur x-rays, reports reviewed, images independently reviewed. Lytic lesions left proximal femur and left iliac area. PATIENT: JOSEPH KINSEY ACCOUNT: [id number] : 1950 LOCATION: ER AGE: 68 SEX: M EXAM STATUS: REG ER ORD. PHYSICIAN: RM DEL TORO APRN REASON: left hip pain, no known injury PROCEDURE: HIP LEFT 2V WITH PELVIS AP view of the pelvis and two-view study of the left hip Clinical indications: Left hip pain. No known injury. FINDINGS: No acute fracture or dislocation is seen. There is a radiolucent lesion of the left iliac bone measuring 3.9 cm. There is a radiolucent lesion of the proximal shaft of the left femur measuring 7.8 cm in length. Proximal to this area in the subtrochanteric region of the proximal femur is another smaller lucent lesion measuring 1.2 cm. Synovial cyst of the left femoral neck is seen. IMPRESSION: Lytic lesions of the proximal left femur and the left iliac bone consistent with osseous metastatic disease or multiple myeloma. No acute fracture. The lesion within the proximal left femoral shaft occupies the entire width of the shaft here. There is endosteal scalloping as well. Therefore, this may predispose to pathologic fracture. Electronically signed by: Florence Reilly MD (03/13/2019 3:00 PM) [facility] DICTATED and SIGNED BY: FLORENCE REILLY MD DATE: 03/13/19 1500 [facility] [address] [place] [address] IMAGING REPORT Signed PATIENT: JOSEPH KINSEY ACCOUNT: [id number] : 1950 LOCATION: [address] [place] [address] AGE: 68 SEX: M EXAM STATUS: ADM IN ORD. PHYSICIAN: ESTHER BOURGEOIS MD REASON: bone mets - eval for primary drink after nuc med @ 12:00 PROCEDURE: CT CHEST ABD PELVIS W/CONTRAST CT study of the chest and abdomen and pelvis with contrast Clinical indications: Bone metastatic disease seen on radiographic study of the left hip. TECHNIQUE: After IV infusion of 75 cc of Omnipaque 300, helical CT scanning of the chest and abdomen and pelvis was performed. GI contrast was administered per mouth. Preprocedure creatinine level was 0.8. PQRS compliance Statement One or more of the following individualized dose reduction techniques were utilized for this study: 1. Automated exposure control 2. Adjustment of the mA and/or kV according to patient size 3. Use of iterative reconstruction technique COMPARISON: No previous CT available. CHEST CT: Mediastinal lymph nodes are apparent and the largest lymph node is seen in the precarinal region measuring 14 mm. Otherwise no bulky thoracic lymphadenopathy is seen. No focal aneurysmal dilatation or dissection of thoracic aorta is seen. Calcified atheromatous disease of the coronary arteries is seen. The heart size is normal and no pericardial effusion is seen. No lung mass or lung consolidation is seen. No lung metastatic disease is seen. There is mild linear scarring or atelectasis of both lower lobes. No pleural effusion or pneumothorax is seen. The proximal bronchial tree is patent. There is a lytic lesion of the left side of the T2 vertebral body. There is a lytic lesion of the posterior left 11th rib and a pathologic fracture is seen here which is nondisplaced. There is a small lytic lesion of the posterior aspect of the right second rib. There is a small lytic lesion of the upper posterior aspect of the right 11th rib. There is a small lytic lesion of the posterior lateral aspect of the right ninth rib. Old healed right rib cage fractures are seen. IMPRESSION: Small mediastinal lymph nodes. No bulky thoracic lymphadenopathy. No lung mass or lung metastatic disease is seen. Linear atelectasis or scarring of both lower lobes. Osseous metastatic disease versus multiple myeloma involving T12 and bilateral rib cage. The left 11th rib lesion demonstrates a pathologic fracture which is nondisplaced. ABDOMEN AND PELVIS CT: Diffuse fatty infiltration of the liver is seen. The spleen is mildly enlarged measuring 13.5 cm in length. The spleen is homogeneous. Pancreas and gallbladder are normal. No extra hepatic biliary ductal dilatation is seen. No adrenal mass is evident. There is a small cyst of the mid to lower aspect of the right kidney. Otherwise both kidneys are normal without hydronephrosis or hydroureter. No focal aneurysmal dilatation of the abdominal aorta is seen. Urinary bladder wall is smooth. Prostate gland is mildly enlarged and indents the floor of the urinary bladder. The prostate gland measures 5.6 cm in transverse dimension. Seminal vesicles are symmetric. The appendix is normal. No obstructive bowel pattern is evident. No bowel wall thickening or soft tissue mass is evident. No mesenteric edema or free fluid or free air is seen. There is a lucent lesion of the inferior anterior aspect of the L4 vertebral body. A possible early lytic lesion of the right side of the L2 vertebral body is seen. There is a small lucent lesion of the posterior medial aspect of left Iliac bone. There are 2 lytic lesions which are expansile with cortical erosion of the left iliac bone more anteriorly within the left iliac crest and then more inferiorly. There are 2 small lytic lesions of the right ischial bone just below the acetabulum. A small lytic lesion of the subtrochanteric area of the proximal left femur is seen. IMPRESSION: Osseous metastatic disease versus multiple myeloma. No soft tissue mass or enlarged abdominal/pelvic lymphadenopathy or hepatic metastasis is seen. Diffuse fatty infiltration of the liver. Mild splenomegaly. Mild enlargement of the prostate gland. Electronically signed by: Florence Reilly MD (03/14/2019 5:42 PM) [facility] DICTATED and SIGNED BY: FLORENCE REILLY MD DATE: 03/14/191741 Assessment/Plan Assessment/Plan Multiple lytic lesions, impending pathologic fracture left femur. Unclear primary this time. Biopsy planned Sunday. I spoke to the patient about intramedullary nail stabilization of the left femur surgery on Sunday. He agrees with that plan. Discolored lesion on left shoulder blade area might be a melanoma. HOA EARLY MD Mar 14, 2019 19:58
[2019-03-14] MEDS ORDERED: ASPI325T8 PO (20:59)
[2019-03-14] MEDS ORDERED: NAPR220T70 PO (21:00)
[2019-03-14] MEDS ORDERED: MULT-246 PO (21:00)
[2019-03-14 23:03] VITALS: BP 162/87
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
[2019-03-15 03:25] VITALS: BP 162/88
[2019-03-15 05:51] LABS: BASO # 0.1 x10^3/uL (0.0-0.2); BASO % 1 % (0-3); EOS # 0.2 x10^3/uL (0.0-0.7); EOS % 3 % (0-3); HEMATOCRIT 46.5 % (39.0-53.0); HEMOGLOBIN 16.3 g/dL (13.0-17.5); LYMPH # 1.6 x10^3/uL (1.0-4.8); LYMPH % 20 % (24-48); MEAN CORPUSCULAR HEMOGLOBIN 36 pg (25-35); MEAN CORPUSCULAR HGB CONC 35 g/dL (31-37); MEAN CORPUSCULAR VOLUME 102 fL (79-100); MONO # 0.8 x10^3/uL (0.0-1.1); MONO % 10 % (0-9); NEUT # 5.6 x10^3/uL (1.8-7.7); NEUT % 67 % (31-73); PLATELET COUNT 100 x10^3/uL (140-400); RED BLOOD COUNT 4.57 x10^6/uL (4.30-5.70); RED CELL DISTRIBUTION WIDTH 13.3 % (11.5-14.5); WHITE BLOOD COUNT 8.3 x10^3/uL (4.0-11.0)
[2019-03-15 06:21] LABS: ALBUMIN 3.2 g/dL (3.4-5.0); ALBUMIN/GLOBULIN RATIO 0.8 (1.0-1.7); CALCIUM 9.5 mg/dL (8.5-10.1); CREATININE 0.8 mg/dL (0.7-1.3); GFR 96.4; POTASSIUM 3.9 mmol/L (3.5-5.1); TOTAL BILIRUBIN 1.3 mg/dL (0.2-1.0); TOTAL PROTEIN 7.3 g/dL (6.4-8.2)
[2019-03-15 07:00] VITALS: BP 166/91
[2019-03-15] MEDS ORDERED: MORPHINE SULFATE 2 MG/ML VIAL. IV PRN (08:45)
[2019-03-15] MEDS ORDERED: ACETAMINOPHEN 500 MG TABLET PO PRN (08:45)
[2019-03-15] MEDS ORDERED: DEXTROSE 50% 25 GM / 50ML DISP.SYRIN. IV PRN (08:45)
[2019-03-15] MEDS ORDERED: ONDANSETRON PF 4 MG/2 ML VIAL. IVP PRN (08:45)
[2019-03-15] MEDS: MULTIVITAMIN with MINERAL TABLET. PO SCH (09:09)
--- NOTE | 2019-03-15 10:07 | PDOC ---
PROGRESS NOTES Subjective Subjective HPI - f/u of Bone lesions ROS - no CP Objective Objective Vital Signs Date Time Temp Pulse Resp B/P (MAP) Pulse Ox O2 Delivery O2 Flow Rate FiO2 03/15/19 07:00 97.6 83 18 166/91 (116) 94 Room Air 97.6 Intake and Output 03/15/19 07:00 Intake Total 1000 ml Balance 1000 ml Intake Oral 1000 ml # Voids 2 Physical Exam Heart: Normal S1, Normal S2 General: Alert, Oriented X3 Lungs: Clear to auscultation Neuro: Normal speech Skin: No rashes Assessment Assessment Problems Medical Problems: (1) Multiple myeloma Status: Acute IMPRESSION AND PLAN: 1. Bone lesions clinically consistent with bone metastasis. X-rays of the hip and pelvis on 03/13/2019 revealed lytic lesions of the proximal left femur and left iliac bone consistent with osseous metastatic disease or multiple myeloma. The lesion within the proximal left femoral shaft occupies the entire width of the shaft and this may predispose to pathologic fracture. Hence, I consulted Orthopedic Surgery for possible prophylactic surgery. I also consulted Interventional Radiology for biopsy. I consulted Radiation Oncology in preparation for possible need for palliative radiation therapy subsequently. I will obtain serum protein electrophoresis and immunofixation studies and serum free light chains. CT chest, abdomen and pelvis 03/14/19: There is a lucent lesion of the inferior anterior aspect of the L4 vertebral body. A possible early lytic lesion of the right side of the L2 vertebral body is seen. There is a small lucent lesion of the posterior medial aspect of left Iliac bone. There are 2 lytic lesions which are expansile with cortical erosion of the left iliac bone more anteriorly within the left iliac crest and then more inferiorly. There are 2 small lytic lesions of the right ischial bone just below the acetabulum. A small lytic lesion of the subtrochanteric area of the proximal left femur is seen. Bone scan 03/14/19: Osseous metastatic disease of the proximal shaft of the left femur and the left 11th rib. PSA normal at 1.25 on 03/14/2019. Lytic lesions on CT suggests multiple myeloma - plan bone marrow bx. 2. Thrombocytopenia, mild. Hemoglobin and WBC is normal, but the platelets are 112 on 03/13/2019. I will continue to monitor. Comment Review of Relevant I have reviewed the following items terese (where applicable) has been applied. Labs Laboratory Tests Test 03/13/19 16:07 03/14/19 10:10 03/14/19 16:24 03/14/19 20:35 White Blood Count 9.7 x10^3/uL (4.0-11.0) Red Blood Count 4.72 x10^6/uL (4.30-5.70) Hemoglobin 16.8 g/dL (13.0-17.5) Hematocrit 47.0 % (39.0-53.0) Mean Corpuscular Volume 100 fL (79-100) Mean Corpuscular Hemoglobin 36 pg (25-35) Mean Corpuscular Hemoglobin Concent 36 g/dL (31-37) Red Cell Distribution Width 12.9 % (11.5-14.5) Platelet Count 112 x10^3/uL (140-400) Neutrophils (%) (Auto) 76 % (31-73) Lymphocytes (%) (Auto) 10 % (24-48) Monocytes (%) (Auto) 10 % (0-9) Eosinophils (%) (Auto) 2 % (0-3) Basophils (%) (Auto) 1 % (0-3) Neutrophils # (Auto) 7.4 x10^3/uL (1.8-7.7) Lymphocytes # (Auto) 1.0 x10^3/uL (1.0-4.8) Monocytes # (Auto) 1.0 x10^3/uL (0.0-1.1) Eosinophils # (Auto) 0.2 x10^3/uL (0.0-0.7) Basophils # (Auto) 0.1 x10^3/uL (0.0-0.2) Prothrombin Time 16.2 SEC (11.7-14.0) Prothromb Time International Ratio 1.3 (0.8-1.1) Activated Partial Thromboplast Time 30 SEC (24-38) Sodium Level 138 mmol/L (136-145) Potassium Level 3.9 mmol/L (3.5-5.1) Chloride Level 99 mmol/L (98-107) Carbon Dioxide Level 29 mmol/L (21-32) Anion Gap 10 (6-14) Blood Urea Nitrogen 13 mg/dL (8-26) Creatinine 0.8 mg/dL (0.7-1.3) Estimated GFR (Cockcroft-Gault) 96.4 BUN/Creatinine Ratio 16 (6-20) Glucose Level 258 mg/dL (70-99) Calcium Level 9.7 mg/dL (8.5-10.1) Total Bilirubin 1.0 mg/dL (0.2-1.0) Aspartate Amino Transf (AST/SGOT) 39 U/L (15-37) Alanine Aminotransferase (ALT/SGPT) 34 U/L (16-63) Alkaline Phosphatase 91 U/L (46-116) Total Protein 7.4 g/dL (6.4-8.2) Albumin 3.6 g/dL (3.4-5.0) Albumin/Globulin Ratio 0.9 (1.0-1.7) Prostate Specific Antigen 1.25 ng/mL (0.00-4.00) Glucose (Fingerstick) 165 mg/dL (70-99) 274 mg/dL (70-99) Test 03/15/19 04:30 03/15/19 08:08 White Blood Count 8.3 x10^3/uL (4.0-11.0) Red Blood Count 4.57 x10^6/uL (4.30-5.70) Hemoglobin 16.3 g/dL (13.0-17.5) Hematocrit 46.5 % (39.0-53.0) Mean Corpuscular Volume 102 fL (79-100) Mean Corpuscular Hemoglobin 36 pg (25-35) Mean Corpuscular Hemoglobin Concent 35 g/dL (31-37) Red Cell Distribution Width 13.3 % (11.5-14.5) Platelet Count 100 x10^3/uL (140-400) Neutrophils (%) (Auto) 67 % (31-73) Lymphocytes (%) (Auto) 20 % (24-48) Monocytes (%) (Auto) 10 % (0-9) Eosinophils (%) (Auto) 3 % (0-3) Basophils (%) (Auto) 1 % (0-3) Neutrophils # (Auto) 5.6 x10^3/uL (1.8-7.7) Lymphocytes # (Auto) 1.6 x10^3/uL (1.0-4.8) Monocytes # (Auto) 0.8 x10^3/uL (0.0-1.1) Eosinophils # (Auto) 0.2 x10^3/uL (0.0-0.7) Basophils # (Auto) 0.1 x10^3/uL (0.0-0.2) Sodium Level 141 mmol/L (136-145) Potassium Level 3.9 mmol/L (3.5-5.1) Chloride Level 103 mmol/L (98-107) Carbon Dioxide Level 33 mmol/L (21-32) Anion Gap 5 (6-14) Blood Urea Nitrogen 11 mg/dL (8-26) Creatinine 0.8 mg/dL (0.7-1.3) Estimated GFR (Cockcroft-Gault) 96.4 BUN/Creatinine Ratio 14 (6-20) Glucose Level 179 mg/dL (70-99) Calcium Level 9.5 mg/dL (8.5-10.1) Total Bilirubin 1.3 mg/dL (0.2-1.0) Aspartate Amino Transf (AST/SGOT) 37 U/L (15-37) Alanine Aminotransferase (ALT/SGPT) 27 U/L (16-63) Alkaline Phosphatase 84 U/L (46-116) Total Protein 7.3 g/dL (6.4-8.2) Albumin 3.2 g/dL (3.4-5.0) Albumin/Globulin Ratio 0.8 (1.0-1.7) Glucose (Fingerstick) 249 mg/dL (70-99) Laboratory Tests Test 03/14/19 10:10 03/14/19 16:24 03/14/19 20:35 03/15/19 04:30 Prostate Specific Antigen 1.25 ng/mL (0.00-4.00) Glucose (Fingerstick) 165 mg/dL (70-99) 274 mg/dL (70-99) White Blood Count 8.3 x10^3/uL (4.0-11.0) Red Blood Count 4.57 x10^6/uL (4.30-5.70) Hemoglobin 16.3 g/dL (13.0-17.5) Hematocrit 46.5 % (39.0-53.0) Mean Corpuscular Volume 102 fL (79-100) Mean Corpuscular Hemoglobin 36 pg (25-35) Mean Corpuscular Hemoglobin Concent 35 g/dL (31-37) Red Cell Distribution Width 13.3 % (11.5-14.5) Platelet Count 100 x10^3/uL (140-400) Neutrophils (%) (Auto) 67 % (31-73) Lymphocytes (%) (Auto) 20 % (24-48) Monocytes (%) (Auto) 10 % (0-9) Eosinophils (%) (Auto) 3 % (0-3) Basophils (%) (Auto) 1 % (0-3) Neutrophils # (Auto) 5.6 x10^3/uL (1.8-7.7) Lymphocytes # (Auto) 1.6 x10^3/uL (1.0-4.8) Monocytes # (Auto) 0.8 x10^3/uL (0.0-1.1) Eosinophils # (Auto) 0.2 x10^3/uL (0.0-0.7) Basophils # (Auto) 0.1 x10^3/uL (0.0-0.2) Sodium Level 141 mmol/L (136-145) Potassium Level 3.9 mmol/L (3.5-5.1) Chloride Level 103 mmol/L (98-107) Carbon Dioxide Level 33 mmol/L (21-32) Anion Gap 5 (6-14) Blood Urea Nitrogen 11 mg/dL (8-26) Creatinine 0.8 mg/dL (0.7-1.3) Estimated GFR (Cockcroft-Gault) 96.4 BUN/Creatinine Ratio 14 (6-20) Glucose Level 179 mg/dL (70-99) Calcium Level 9.5 mg/dL (8.5-10.1) Total Bilirubin 1.3 mg/dL (0.2-1.0) Aspartate Amino Transf (AST/SGOT) 37 U/L (15-37) Alanine Aminotransferase (ALT/SGPT) 27 U/L (16-63) Alkaline Phosphatase 84 U/L (46-116) Total Protein 7.3 g/dL (6.4-8.2) Albumin 3.2 g/dL (3.4-5.0) Albumin/Globulin Ratio 0.8 (1.0-1.7) Test 03/15/19 08:08 Glucose (Fingerstick) 249 mg/dL (70-99) Medications Current Medications Prednisone (Prednisone) 60 mg 1X ONCE PO Last administered on 03/13/19at 14:52; Start 03/13/19 at 14:30; Stop 03/13/19 at 14:31; Status DC Ondansetron HCl (Zofran) 4 mg PRN Q8HRS PRN IV NAUSEA/VOMITING; Start 03/13/19 at 16:30; Stop 03/14/19 at 16:29; Status DC Morphine Sulfate (Morphine Sulfate) 4 mg PRN Q2HR PRN IV PAIN; Start 03/13/19 at 16:30; Stop 03/14/19 at 16:29; Status DC Acetaminophen (Tylenol) 650 mg PRN Q4HRS PRN PO FEVER; Start 03/13/19 at 16:30; Stop 03/14/19 at 16:29; Status DC Sodium Chloride 1,000 ml @ 75 mls/hr [id number] IV Last administered on 03/14/19at 05:36; Start 03/13/19 at 17:30 Iohexol (Omnipaque 240 Mg/ml) 30 ml 1X ONCE PO Last administered on 03/14/19at 09:30; Start 03/14/19 at 09:30; Stop 03/14/19 at 09:31; Status DC Iohexol (Omnipaque 300 Mg/ml) 75 ml 1X ONCE IV Last administered on 03/14/19at 14:44; Start 03/14/19 at 09:30; Stop 03/14/19 at 09:31; Status DC Info (CONTRAST GIVEN -- Rx MONITORING) 1 each PRN DAILY PRN MC SEE COMMENTS; Start 03/14/19 at 09:30; Stop 03/16/19 at 09:29 Insulin Human Lispro (HumaLOG) 0-7 UNITS TIDWMEALS SQ ; Start 03/14/19 at 12:00; Stop 03/15/19 at 08:44; Status DC Dextrose (Dextrose 50%-Water Syringe) 12.5 gm PRN Q15MIN PRN IV SEE COMMENTS; Start 03/14/19 at 12:00 Iohexol (Omnipaque 240 Mg/ml) 50 ml STK-MED ONCE .ROUTE ; Start 03/14/19 at 14:25; Stop 03/14/19 at 14:26; Status DC Iohexol (Omnipaque 300 Mg/ml) 100 ml STK-MED ONCE .ROUTE ; Start 03/14/19 at 14:26; Stop 03/14/19 at 14:26; Status DC Insulin Human Lispro (HumaLOG) 0-9 UNITS TIDWMEALS SQ ; Start 03/15/19 at 12:00 Dextrose (Dextrose 50%-Water Syringe) 12.5 gm PRN Q15MIN PRN IV SEE COMMENTS; Start 03/15/19 at 08:45; Status UNV Acetaminophen/ Hydrocodone Bitart (Lortab 5/325) 1 tab PRN Q4HRS PRN PO PAIN; Start 03/15/19 at 08:45 Morphine Sulfate (Morphine Sulfate) 2 mg PRN Q2HR PRN IV PAIN; Start 03/15/19 at 08:45 Ondansetron HCl (Zofran) 4 mg PRN Q6HRS PRN IVP NAUSEA/VOMITING; Start 03/15/19 at 08:45 Acetaminophen (Tylenol) 500 mg PRN Q6HRS PRN PO MILD PAIN / TEMP; Start 03/15/19 at 08:45 Multivitamins (Thera M Plus) 1 tab DAILY PO Last administered on 03/15/19at 09:09; Start 03/15/19 at 09:00 Active Scripts Active Reported Aleve (Naproxen Sodium) 220 Mg Tablet 220 Mg PO PRN PRN Multi-Vitamin Daily (Multivitamin) 1 Each Tablet 1 Each PO DAILY Aspirin 325 Mg Tablet 325 Mg PO DAILY Vitals/I & O Vital Sign - Last 24 Hours 03/14/19 03/14/19 03/14/19 03/14/19 11:00 15:00 19:00 20:00 Temp 97.6 97.7 97.6 97.6 97.7 97.6 Pulse 73 80 79 Resp 16 16 20 B/P (MAP) 136/79 (98) 177/98 (124) 153/82 (105) Pulse Ox 95 94 96 O2 Delivery Room Air Room Air Room Air Room Air 03/14/19 03/15/19 03/15/19 23:03 03:25 07:00 Temp 98.1 98.2 97.6 98.1 98.2 97.6 Pulse 74 72 83 Resp 20 20 18 B/P (MAP) 162/87 (112) 162/88 (112) 166/91 (116) Pulse Ox 95 94 94 O2 Delivery Room Air Room Air Room Air Intake and Output 03/14/19 03/14/19 03/15/19 15:00 23:00 07:00 Intake Total 1000 ml Balance 1000 ml ESTHER BOURGEOIS MD Mar 15, 2019 10:07
--- NOTE | 2019-03-15 10:56 | PDOC ---
PROGRESS NOTES Chief Complaint Chief Complaint lytic disease in the left iliac and left femur, most consistent with underlying multiple myeloma, bone lesion, suspect malignancy hip pain obese, BMI 31 Hyperglycemia, non DM dx History of Present Illness History of Present Illness HE has no complains PLans of bone biopsy sunday HEme onc and rad onc notes reviewed HE denies DM, BS 250s PLANL Check hgba1c I shifted to High dose ssi in the meantime Bone biopsy sunday HOld home naproxen Add clonidine, SBP 160s Vitals Vitals Vital Signs Date Time Temp Pulse Resp B/P (MAP) Pulse Ox O2 Delivery O2 Flow Rate FiO2 03/15/19 07:00 97.6 83 18 166/91 (116) 94 Room Air 97.6 Physical Exam General: Alert, Oriented X3 Heart: Normal S1, Normal S2 Lungs: Wheezing Abdomen: Soft Extremities: No clubbing Skin: No rashes Labs LABS Laboratory Tests Test 03/14/19 16:24 03/14/19 20:35 03/15/19 04:30 03/15/19 08:08 Glucose (Fingerstick) 165 mg/dL (70-99) 274 mg/dL (70-99) 249 mg/dL (70-99) White Blood Count 8.3 x10^3/uL (4.0-11.0) Red Blood Count 4.57 x10^6/uL (4.30-5.70) Hemoglobin 16.3 g/dL (13.0-17.5) Hematocrit 46.5 % (39.0-53.0) Mean Corpuscular Volume 102 fL (79-100) Mean Corpuscular Hemoglobin 36 pg (25-35) Mean Corpuscular Hemoglobin Concent 35 g/dL (31-37) Red Cell Distribution Width 13.3 % (11.5-14.5) Platelet Count 100 x10^3/uL (140-400) Neutrophils (%) (Auto) 67 % (31-73) Lymphocytes (%) (Auto) 20 % (24-48) Monocytes (%) (Auto) 10 % (0-9) Eosinophils (%) (Auto) 3 % (0-3) Basophils (%) (Auto) 1 % (0-3) Neutrophils # (Auto) 5.6 x10^3/uL (1.8-7.7) Lymphocytes # (Auto) 1.6 x10^3/uL (1.0-4.8) Monocytes # (Auto) 0.8 x10^3/uL (0.0-1.1) Eosinophils # (Auto) 0.2 x10^3/uL (0.0-0.7) Basophils # (Auto) 0.1 x10^3/uL (0.0-0.2) Sodium Level 141 mmol/L (136-145) Potassium Level 3.9 mmol/L (3.5-5.1) Chloride Level 103 mmol/L (98-107) Carbon Dioxide Level 33 mmol/L (21-32) Anion Gap 5 (6-14) Blood Urea Nitrogen 11 mg/dL (8-26) Creatinine 0.8 mg/dL (0.7-1.3) Estimated GFR (Cockcroft-Gault) 96.4 BUN/Creatinine Ratio 14 (6-20) Glucose Level 179 mg/dL (70-99) Calcium Level 9.5 mg/dL (8.5-10.1) Total Bilirubin 1.3 mg/dL (0.2-1.0) Aspartate Amino Transf (AST/SGOT) 37 U/L (15-37) Alanine Aminotransferase (ALT/SGPT) 27 U/L (16-63) Alkaline Phosphatase 84 U/L (46-116) Total Protein 7.3 g/dL (6.4-8.2) Albumin 3.2 g/dL (3.4-5.0) Albumin/Globulin Ratio 0.8 (1.0-1.7) Review of Systems Review of Systems neg 14 pt reviewed with him Assessment and Plan Assessmemt and Plan Problems Medical Problems: (1) Multiple myeloma Status: Acute Comment Review of Relevant I have reviewed the following items terese (where applicable) has been applied. Labs Laboratory Tests Test 03/13/19 16:07 03/14/19 10:10 03/14/19 16:24 03/14/19 20:35 White Blood Count 9.7 x10^3/uL (4.0-11.0) Red Blood Count 4.72 x10^6/uL (4.30-5.70) Hemoglobin 16.8 g/dL (13.0-17.5) Hematocrit 47.0 % (39.0-53.0) Mean Corpuscular Volume 100 fL (79-100) Mean Corpuscular Hemoglobin 36 pg (25-35) Mean Corpuscular Hemoglobin Concent 36 g/dL (31-37) Red Cell Distribution Width 12.9 % (11.5-14.5) Platelet Count 112 x10^3/uL (140-400) Neutrophils (%) (Auto) 76 % (31-73) Lymphocytes (%) (Auto) 10 % (24-48) Monocytes (%) (Auto) 10 % (0-9) Eosinophils (%) (Auto) 2 % (0-3) Basophils (%) (Auto) 1 % (0-3) Neutrophils # (Auto) 7.4 x10^3/uL (1.8-7.7) Lymphocytes # (Auto) 1.0 x10^3/uL (1.0-4.8) Monocytes # (Auto) 1.0 x10^3/uL (0.0-1.1) Eosinophils # (Auto) 0.2 x10^3/uL (0.0-0.7) Basophils # (Auto) 0.1 x10^3/uL (0.0-0.2) Prothrombin Time 16.2 SEC (11.7-14.0) Prothromb Time International Ratio 1.3 (0.8-1.1) Activated Partial Thromboplast Time 30 SEC (24-38) Sodium Level 138 mmol/L (136-145) Potassium Level 3.9 mmol/L (3.5-5.1) Chloride Level 99 mmol/L (98-107) Carbon Dioxide Level 29 mmol/L (21-32) Anion Gap 10 (6-14) Blood Urea Nitrogen 13 mg/dL (8-26) Creatinine 0.8 mg/dL (0.7-1.3) Estimated GFR (Cockcroft-Gault) 96.4 BUN/Creatinine Ratio 16 (6-20) Glucose Level 258 mg/dL (70-99) Calcium Level 9.7 mg/dL (8.5-10.1) Total Bilirubin 1.0 mg/dL (0.2-1.0) Aspartate Amino Transf (AST/SGOT) 39 U/L (15-37) Alanine Aminotransferase (ALT/SGPT) 34 U/L (16-63) Alkaline Phosphatase 91 U/L (46-116) Total Protein 7.4 g/dL (6.4-8.2) Albumin 3.6 g/dL (3.4-5.0) Albumin/Globulin Ratio 0.9 (1.0-1.7) Prostate Specific Antigen 1.25 ng/mL (0.00-4.00) Glucose (Fingerstick) 165 mg/dL (70-99) 274 mg/dL (70-99) Test 03/15/19 04:30 03/15/19 08:08 White Blood Count 8.3 x10^3/uL (4.0-11.0) Red Blood Count 4.57 x10^6/uL (4.30-5.70) Hemoglobin 16.3 g/dL (13.0-17.5) Hematocrit 46.5 % (39.0-53.0) Mean Corpuscular Volume 102 fL (79-100) Mean Corpuscular Hemoglobin 36 pg (25-35) Mean Corpuscular Hemoglobin Concent 35 g/dL (31-37) Red Cell Distribution Width 13.3 % (11.5-14.5) Platelet Count 100 x10^3/uL (140-400) Neutrophils (%) (Auto) 67 % (31-73) Lymphocytes (%) (Auto) 20 % (24-48) Monocytes (%) (Auto) 10 % (0-9) Eosinophils (%) (Auto) 3 % (0-3) Basophils (%) (Auto) 1 % (0-3) Neutrophils # (Auto) 5.6 x10^3/uL (1.8-7.7) Lymphocytes # (Auto) 1.6 x10^3/uL (1.0-4.8) Monocytes # (Auto) 0.8 x10^3/uL (0.0-1.1) Eosinophils # (Auto) 0.2 x10^3/uL (0.0-0.7) Basophils # (Auto) 0.1 x10^3/uL (0.0-0.2) Sodium Level 141 mmol/L (136-145) Potassium Level 3.9 mmol/L (3.5-5.1) Chloride Level 103 mmol/L (98-107) Carbon Dioxide Level 33 mmol/L (21-32) Anion Gap 5 (6-14) Blood Urea Nitrogen 11 mg/dL (8-26) Creatinine 0.8 mg/dL (0.7-1.3) Estimated GFR (Cockcroft-Gault) 96.4 BUN/Creatinine Ratio 14 (6-20) Glucose Level 179 mg/dL (70-99) Calcium Level 9.5 mg/dL (8.5-10.1) Total Bilirubin 1.3 mg/dL (0.2-1.0) Aspartate Amino Transf (AST/SGOT) 37 U/L (15-37) Alanine Aminotransferase (ALT/SGPT) 27 U/L (16-63) Alkaline Phosphatase 84 U/L (46-116) Total Protein 7.3 g/dL (6.4-8.2) Albumin 3.2 g/dL (3.4-5.0) Albumin/Globulin Ratio 0.8 (1.0-1.7) Glucose (Fingerstick) 249 mg/dL (70-99) Laboratory Tests Test 03/14/19 16:24 03/14/19 20:35 03/15/19 04:30 03/15/19 08:08 Glucose (Fingerstick) 165 mg/dL (70-99) 274 mg/dL (70-99) 249 mg/dL (70-99) White Blood Count 8.3 x10^3/uL (4.0-11.0) Red Blood Count 4.57 x10^6/uL (4.30-5.70) Hemoglobin 16.3 g/dL (13.0-17.5) Hematocrit 46.5 % (39.0-53.0) Mean Corpuscular Volume 102 fL (79-100) Mean Corpuscular Hemoglobin 36 pg (25-35) Mean Corpuscular Hemoglobin Concent 35 g/dL (31-37) Red Cell Distribution Width 13.3 % (11.5-14.5) Platelet Count 100 x10^3/uL (140-400) Neutrophils (%) (Auto) 67 % (31-73) Lymphocytes (%) (Auto) 20 % (24-48) Monocytes (%) (Auto) 10 % (0-9) Eosinophils (%) (Auto) 3 % (0-3) Basophils (%) (Auto) 1 % (0-3) Neutrophils # (Auto) 5.6 x10^3/uL (1.8-7.7) Lymphocytes # (Auto) 1.6 x10^3/uL (1.0-4.8) Monocytes # (Auto) 0.8 x10^3/uL (0.0-1.1) Eosinophils # (Auto) 0.2 x10^3/uL (0.0-0.7) Basophils # (Auto) 0.1 x10^3/uL (0.0-0.2) Sodium Level 141 mmol/L (136-145) Potassium Level 3.9 mmol/L (3.5-5.1) Chloride Level 103 mmol/L (98-107) Carbon Dioxide Level 33 mmol/L (21-32) Anion Gap 5 (6-14) Blood Urea Nitrogen 11 mg/dL (8-26) Creatinine 0.8 mg/dL (0.7-1.3) Estimated GFR (Cockcroft-Gault) 96.4 BUN/Creatinine Ratio 14 (6-20) Glucose Level 179 mg/dL (70-99) Calcium Level 9.5 mg/dL (8.5-10.1) Total Bilirubin 1.3 mg/dL (0.2-1.0) Aspartate Amino Transf (AST/SGOT) 37 U/L (15-37) Alanine Aminotransferase (ALT/SGPT) 27 U/L (16-63) Alkaline Phosphatase 84 U/L (46-116) Total Protein 7.3 g/dL (6.4-8.2) Albumin 3.2 g/dL (3.4-5.0) Albumin/Globulin Ratio 0.8 (1.0-1.7) Medications Current Medications Prednisone (Prednisone) 60 mg 1X ONCE PO Last administered on 03/13/19at 14:52; Start 03/13/19 at 14:30; Stop 03/13/19 at 14:31; Status DC Ondansetron HCl (Zofran) 4 mg PRN Q8HRS PRN IV NAUSEA/VOMITING; Start 03/13/19 at 16:30; Stop 03/14/19 at 16:29; Status DC Morphine Sulfate (Morphine Sulfate) 4 mg PRN Q2HR PRN IV PAIN; Start 03/13/19 at 16:30; Stop 03/14/19 at 16:29; Status DC Acetaminophen (Tylenol) 650 mg PRN Q4HRS PRN PO FEVER; Start 03/13/19 at 16:30; Stop 03/14/19 at 16:29; Status DC Sodium Chloride 1,000 ml @ 75 mls/hr [id number] IV Last administered on 03/14/19at 05:36; Start 03/13/19 at 17:30 Iohexol (Omnipaque 240 Mg/ml) 30 ml 1X ONCE PO Last administered on 03/14/19at 09:30; Start 03/14/19 at 09:30; Stop 03/14/19 at 09:31; Status DC Iohexol (Omnipaque 300 Mg/ml) 75 ml 1X ONCE IV Last administered on 03/14/19at 14:44; Start 03/14/19 at 09:30; Stop 03/14/19 at 09:31; Status DC Info (CONTRAST GIVEN -- Rx MONITORING) 1 each PRN DAILY PRN MC SEE COMMENTS; Start 03/14/19 at 09:30; Stop 03/16/19 at 09:29 Insulin Human Lispro (HumaLOG) 0-7 UNITS TIDWMEALS SQ ; Start 03/14/19 at 12:00; Stop 03/15/19 at 08:44; Status DC Dextrose (Dextrose 50%-Water Syringe) 12.5 gm PRN Q15MIN PRN IV SEE COMMENTS; Start 03/14/19 at 12:00 Iohexol (Omnipaque 240 Mg/ml) 50 ml STK-MED ONCE .ROUTE ; Start 03/14/19 at 14:25; Stop 03/14/19 at 14:26; Status DC Iohexol (Omnipaque 300 Mg/ml) 100 ml STK-MED ONCE .ROUTE ; Start 03/14/19 at 14:26; Stop 03/14/19 at 14:26; Status DC Insulin Human Lispro (HumaLOG) 0-9 UNITS TIDWMEALS SQ ; Start 03/15/19 at 12:00 Dextrose (Dextrose 50%-Water Syringe) 12.5 gm PRN Q15MIN PRN IV SEE COMMENTS; Start 03/15/19 at 08:45; Status UNV Acetaminophen/ Hydrocodone Bitart (Lortab 5/325) 1 tab PRN Q4HRS PRN PO PAIN; Start 03/15/19 at 08:45 Morphine Sulfate (Morphine Sulfate) 2 mg PRN Q2HR PRN IV PAIN; Start 03/15/19 at 08:45 Ondansetron HCl (Zofran) 4 mg PRN Q6HRS PRN IVP NAUSEA/VOMITING; Start 03/15/19 at 08:45 Acetaminophen (Tylenol) 500 mg PRN Q6HRS PRN PO MILD PAIN / TEMP; Start 03/15/19 at 08:45 Multivitamins (Thera M Plus) 1 tab DAILY PO Last administered on 03/15/19at 09:09; Start 03/15/19 at 09:00 Active Scripts Active Reported Aleve (Naproxen Sodium) 220 Mg Tablet 220 Mg PO PRN PRN Multi-Vitamin Daily (Multivitamin) 1 Each Tablet 1 Each PO DAILY Aspirin 325 Mg Tablet 325 Mg PO DAILY Vitals/I & O Vital Sign - Last 24 Hours 03/14/19 03/14/19 03/14/19 03/14/19 11:00 15:00 19:00 20:00 Temp 97.6 97.7 97.6 97.6 97.7 97.6 Pulse 73 80 79 Resp 16 16 20 B/P (MAP) 136/79 (98) 177/98 (124) 153/82 (105) Pulse Ox 95 94 96 O2 Delivery Room Air Room Air Room Air Room Air 03/14/19 03/15/19 03/15/19 23:03 03:25 07:00 Temp 98.1 98.2 97.6 98.1 98.2 97.6 Pulse 74 72 83 Resp 20 20 18 B/P (MAP) 162/87 (112) 162/88 (112) 166/91 (116) Pulse Ox 95 94 94 O2 Delivery Room Air Room Air Room Air Intake and Output 03/14/19 03/14/19 03/15/19 15:00 23:00 07:00 Intake Total 1000 ml Balance 1000 ml KATTY PLASENCIA MD Mar 15, 2019 10:56
[2019-03-15 11:00] VITALS: BP 160/84
--- NOTE | 2019-03-15 11:34 | RAD ---
Bone survey x-rays, 21 x-ray images HISTORY: Lytic lesions. COMPARISON: CT chest, abdomen and pelvis and bone scan February 11, 2019. FINDINGS: BB foreign body left lower chest. There appears to be a 7 mm round lytic lesion at the upper C5 vertebral body on the lateral view. Cervical disc disease with disc height loss C5-6 and C6-C7 and bulky disc osteophytes at several levels. The lumbar vertebral lytic lesions on prior CT imaging are too small on these x-rays to be detected or obscured by overlapping bowel gas lucencies in soft tissue density. Left iliac crest lytic lesions again demonstrated. Left femoral neck bone cyst. Proximal left femoral shaft trabecular bone expansile lytic lesion with endosteal erosion of greater than 50 percent of the thickness along the lateral cortex suspicious for an infiltrative malignant process. No sclerotic bony lesions evident. IMPRESSION: 1. 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 Given lytic lesions elsewhere, a sarcoma would be less likely. 2. Possible small lytic lesion of the C5 vertebral body. Left iliac crest lytic lesions again demonstrated. Findings likely represent lytic metastatic disease or multiple myeloma. Electronically signed by: Remi Booth MD (03/15/2019 11:31 AM) [facility]
[2019-03-15] MEDS: INSULIN LISPRO 300 UNITS/3 ML VIAL. SQ SCH ×2 (12:00→17:18)
[2019-03-15 15:00] VITALS: BP 163/84
[2019-03-15 19:00] VITALS: BP 175/95
[2019-03-15 23:01] VITALS: BP 167/86
[2019-03-15 23:11] LABS: KAPPA LAMBDA RATIO 0.51 (0.26-1.65); LAMBDA FREE 48.6 mg/L (5.7-26.3)
[2019-03-16 03:03] VITALS: BP 158/88
[2019-03-16 07:00] VITALS: BP 164/95
[2019-03-16] MEDS: MULTIVITAMIN with MINERAL TABLET. PO SCH (08:04)
[2019-03-16] MEDS: INSULIN LISPRO 300 UNITS/3 ML VIAL. SQ SCH ×3 (08:07→17:00)
--- NOTE | 2019-03-16 09:00 | PDOC ---
PROGRESS NOTES Chief Complaint Chief Complaint lytic disease in the left iliac and left femur, most consistent with underlying multiple myeloma, bone lesion, suspect malignancy hip pain obese, BMI 31 Dm hgba1c 8 History of Present Illness History of Present Illness HE has no complains PLans of bone biopsy sunday HEme onc and rad onc notes reviewed HGba1c 8 HE now tells me before he was pre DM and put on metformin CREat 0.8 PLANL Start metformin and glyburide BID I counselled re his alcohol consumption Bone biopsy sunday HOld home naproxen NPO post [place] Add clonidine, SBP 160s Vitals Vitals Vital Signs Date Time Temp Pulse Resp B/P (MAP) Pulse Ox O2 Delivery O2 Flow Rate FiO2 03/16/19 07:00 98.3 74 16 164/95 (118) 99 Room Air 98.3 Physical Exam General: Alert, Cooperative, No acute distress Heart: Regular rate Lungs: Wheezing Abdomen: Soft Extremities: Other (tenderness of the left thigh but no deformity. No palpable mass. Distal neurovascular function is unremarkable.) Skin: Other (the left back over the shoulder blade area shows a 4mm discolored lesion, nearly black in color with irregular borders) Labs LABS Laboratory Tests Test 03/15/19 11:45 03/15/19 16:48 03/15/19 20:26 03/16/19 07:23 Glucose (Fingerstick) 175 mg/dL (70-99) 245 mg/dL (70-99) 164 mg/dL (70-99) 172 mg/dL (70-99) Review of Systems Review of Systems neg 14 pt reviewed with him Assessment and Plan Assessmemt and Plan Problems Medical Problems: (1) Multiple myeloma Status: Acute Comment Review of Relevant I have reviewed the following items terese (where applicable) has been applied. Labs Laboratory Tests Test 03/14/19 10:10 03/14/19 16:24 03/14/19 20:35 03/15/19 04:30 Prostate Specific Antigen 1.25 ng/mL (0.00-4.00) Immunoglobulin Trosky/Lambda Ratio 0.51 (0.26-1.65) Free Trosky Light Chains 25.0 mg/L (3.3-19.4) Free Lambda Light Chains 48.6 mg/L (5.7-26.3) Glucose (Fingerstick) 165 mg/dL (70-99) 274 mg/dL (70-99) White Blood Count 8.3 x10^3/uL (4.0-11.0) Red Blood Count 4.57 x10^6/uL (4.30-5.70) Hemoglobin 16.3 g/dL (13.0-17.5) Hematocrit 46.5 % (39.0-53.0) Mean Corpuscular Volume 102 fL (79-100) Mean Corpuscular Hemoglobin 36 pg (25-35) Mean Corpuscular Hemoglobin Concent 35 g/dL (31-37) Red Cell Distribution Width 13.3 % (11.5-14.5) Platelet Count 100 x10^3/uL (140-400) Neutrophils (%) (Auto) 67 % (31-73) Lymphocytes (%) (Auto) 20 % (24-48) Monocytes (%) (Auto) 10 % (0-9) Eosinophils (%) (Auto) 3 % (0-3) Basophils (%) (Auto) 1 % (0-3) Neutrophils # (Auto) 5.6 x10^3/uL (1.8-7.7) Lymphocytes # (Auto) 1.6 x10^3/uL (1.0-4.8) Monocytes # (Auto) 0.8 x10^3/uL (0.0-1.1) Eosinophils # (Auto) 0.2 x10^3/uL (0.0-0.7) Basophils # (Auto) 0.1 x10^3/uL (0.0-0.2) Sodium Level 141 mmol/L (136-145) Potassium Level 3.9 mmol/L (3.5-5.1) Chloride Level 103 mmol/L (98-107) Carbon Dioxide Level 33 mmol/L (21-32) Anion Gap 5 (6-14) Blood Urea Nitrogen 11 mg/dL (8-26) Creatinine 0.8 mg/dL (0.7-1.3) Estimated GFR (Cockcroft-Gault) 96.4 BUN/Creatinine Ratio 14 (6-20) Glucose Level 179 mg/dL (70-99) Hemoglobin A1c 8.0 % (4.8-5.6) Calcium Level 9.5 mg/dL (8.5-10.1) Total Bilirubin 1.3 mg/dL (0.2-1.0) Aspartate Amino Transf (AST/SGOT) 37 U/L (15-37) Alanine Aminotransferase (ALT/SGPT) 27 U/L (16-63) Alkaline Phosphatase 84 U/L (46-116) Total Protein 7.3 g/dL (6.4-8.2) Albumin 3.2 g/dL (3.4-5.0) Albumin/Globulin Ratio 0.8 (1.0-1.7) Test 03/15/19 08:08 03/15/19 11:45 03/15/19 16:48 03/15/19 20:26 Glucose (Fingerstick) 249 mg/dL (70-99) 175 mg/dL (70-99) 245 mg/dL (70-99) 164 mg/dL (70-99) Test 03/16/19 07:23 Glucose (Fingerstick) 172 mg/dL (70-99) Laboratory Tests Test 03/15/19 11:45 03/15/19 16:48 03/15/19 20:26 03/16/19 07:23 Glucose (Fingerstick) 175 mg/dL (70-99) 245 mg/dL (70-99) 164 mg/dL (70-99) 172 mg/dL (70-99) Medications Current Medications Prednisone (Prednisone) 60 mg 1X ONCE PO Last administered on 03/13/19at 14:52; Start 03/13/19 at 14:30; Stop 03/13/19 at 14:31; Status DC Ondansetron HCl (Zofran) 4 mg PRN Q8HRS PRN IV NAUSEA/VOMITING; Start 03/13/19 at 16:30; Stop 03/14/19 at 16:29; Status DC Morphine Sulfate (Morphine Sulfate) 4 mg PRN Q2HR PRN IV PAIN; Start 03/13/19 at 16:30; Stop 03/14/19 at 16:29; Status DC Acetaminophen (Tylenol) 650 mg PRN Q4HRS PRN PO FEVER; Start 03/13/19 at 16:30; Stop 03/14/19 at 16:29; Status DC Sodium Chloride 1,000 ml @ 75 mls/hr [id number] IV Last administered on 03/14/19at 05:36; Start 03/13/19 at 17:30; Stop 03/15/19 at 10:58; Status DC Iohexol (Omnipaque 240 Mg/ml) 30 ml 1X ONCE PO Last administered on 03/14/19at 09:30; Start 03/14/19 at 09:30; Stop 03/14/19 at 09:31; Status DC Iohexol (Omnipaque 300 Mg/ml) 75 ml 1X ONCE IV Last administered on 03/14/19at 14:44; Start 03/14/19 at 09:30; Stop 03/14/19 at 09:31; Status DC Info (CONTRAST GIVEN -- Rx MONITORING) 1 each PRN DAILY PRN MC SEE COMMENTS; Start 03/14/19 at 09:30; Stop 03/16/19 at 09:29 Insulin Human Lispro (HumaLOG) 0-7 UNITS TIDWMEALS SQ ; Start 03/14/19 at 12:00; Stop 03/15/19 at 08:44; Status DC Dextrose (Dextrose 50%-Water Syringe) 12.5 gm PRN Q15MIN PRN IV SEE COMMENTS; Start 03/14/19 at 12:00 Iohexol (Omnipaque 240 Mg/ml) 50 ml STK-MED ONCE .ROUTE ; Start 03/14/19 at 14:25; Stop 03/14/19 at 14:26; Status DC Iohexol (Omnipaque 300 Mg/ml) 100 ml STK-MED ONCE .ROUTE ; Start 03/14/19 at 14:26; Stop 03/14/19 at 14:26; Status DC Insulin Human Lispro (HumaLOG) 0-9 UNITS TIDWMEALS SQ Last administered on 03/16/19at 08:07; Start 03/15/19 at 12:00 Dextrose (Dextrose 50%-Water Syringe) 12.5 gm PRN Q15MIN PRN IV SEE COMMENTS; Start 03/15/19 at 08:45; Status UNV Acetaminophen/ Hydrocodone Bitart (Lortab 5/325) 1 tab PRN Q4HRS PRN PO PAIN; Start 03/15/19 at 08:45 Morphine Sulfate (Morphine Sulfate) 2 mg PRN Q2HR PRN IV PAIN; Start 03/15/19 at 08:45 Ondansetron HCl (Zofran) 4 mg PRN Q6HRS PRN IVP NAUSEA/VOMITING; Start 03/15/19 at 08:45 Acetaminophen (Tylenol) 500 mg PRN Q6HRS PRN PO MILD PAIN / TEMP; Start 03/15/19 at 08:45 Multivitamins (Thera M Plus) 1 tab DAILY PO Last administered on 03/16/19at 08:04; Start 03/15/19 at 09:00 Metformin HCl (Glucophage) 500 mg BIDWMEALS PO ; Start 03/16/19 at 17:00 Glyburide (Diabeta) 1.25 mg BIDWMEALS PO ; Start 03/16/19 at 08:30 Active Scripts Active Reported Aleve (Naproxen Sodium) 220 Mg Tablet 220 Mg PO PRN PRN Multi-Vitamin Daily (Multivitamin) 1 Each Tablet 1 Each PO DAILY Aspirin 325 Mg Tablet 325 Mg PO DAILY Vitals/I & O Vital Sign - Last 24 Hours 03/15/19 03/15/19 03/15/19 03/15/19 11:00 15:00 19:00 20:00 Temp 97.9 98.0 98.3 97.9 98.0 98.3 Pulse 84 87 84 Resp 18 18 20 B/P (MAP) 160/84 (109) 163/84 (110) 175/95 (121) Pulse Ox 93 94 95 O2 Delivery Room Air Room Air Room Air Room Air 03/15/19 03/16/19 03/16/19 23:01 03:03 07:00 Temp 98.0 97.6 98.3 98.0 97.6 98.3 Pulse 77 78 74 Resp 20 20 16 B/P (MAP) 167/86 (113) 158/88 (111) 164/95 (118) Pulse Ox 94 94 99 O2 Delivery Room Air Room Air Room Air Intake and Output 03/15/19 03/15/19 03/16/19 15:00 23:00 07:00 Intake Total 150 ml 200 ml Balance 150 ml 200 ml KATTY PLASENCIA MD Mar 16, 2019 09:00
[2019-03-16] MEDS: glyBURIDE 1.25 MG TABLET PO SCH ×2 (09:56→17:09)
[2019-03-16 11:09] VITALS: BP 169/101
[2019-03-16 15:00] VITALS: BP 155/87
--- NOTE | 2019-03-16 15:25 | PDOC ---
PROGRESS NOTES Subjective Subjective HPI - f/u of Bone lesions clinically consistent with bone metastasis. ROS - has leg pain Objective Objective Vital Signs Date Time Temp Pulse Resp B/P (MAP) Pulse Ox O2 Delivery O2 Flow Rate FiO2 03/16/19 11:09 97.7 84 18 169/101 (123) 94 Room Air 97.7 Intake and Output 03/16/19 07:00 Intake Total 350 ml Balance 350 ml Intake Oral 350 ml # Voids 5 Physical Exam Heart: Normal S1, Normal S2 General: Alert, Oriented X3 Lungs: Clear to auscultation Neuro: Normal speech Psych/Mental Status: Mental status NL Assessment Assessment Problems Medical Problems: (1) Multiple myeloma Status: Acute IMPRESSION AND PLAN: 1. Bone lesions clinically consistent with bone metastasis. X-rays of the hip and pelvis on 03/13/2019 revealed lytic lesions of the proximal left femur and left iliac bone consistent with osseous metastatic disease or multiple myeloma. The lesion within the proximal left femoral shaft occupies the entire width of the shaft and this may predispose to pathologic fracture. Hence, I consulted Orthopedic Surgery for possible prophylactic surgery. I also consulted Interventional Radiology for biopsy. I consulted Radiation Oncology in preparation for possible need for palliative radiation therapy subsequently. I will obtain serum protein electrophoresis and immunofixation studies and serum free light chains. CT chest, abdomen and pelvis 03/14/19: There is a lucent lesion of the inferior anterior aspect of the L4 vertebral body. A possible early lytic lesion of the right side of the L2 vertebral body is seen. There is a small lucent lesion of the posterior medial aspect of left Iliac bone. There are 2 lytic lesions which are expansile with cortical erosion of the left iliac bone more anteriorly within the left iliac crest and then more inferiorly. There are 2 small lytic lesions of the right ischial bone just below the acetabulum. A small lytic lesion of the subtrochanteric area of the proximal left femur is seen. Bone scan 03/14/19: Osseous metastatic disease of the proximal shaft of the left femur and the left 11th rib. Skeletal survey: 03/15/19: Agressive permeative lytic trabecular bone lesion of the proximal left femoral shaft concerning for lytic bone metastasis or plasmacytoma. Given lytic lesions elsewhere, a sarcoma would be less likely. Possible small lytic lesion of the C5 vertebral body. Left iliac crest lytic lesions again demonstrated. Findings likely represent lytic metastatic disease or multiple myeloma. PSA normal at 1.25 on 03/14/2019. Lytic lesions on CT suggests multiple myeloma - plan bone marrow bx. 2. Thrombocytopenia, mild. Hemoglobin and WBC is normal, but the platelets are 112 on 03/13/2019. I will continue to monitor. Comment Review of Relevant I have reviewed the following items terese (where applicable) has been applied. Labs Laboratory Tests Test 03/14/19 16:24 03/14/19 20:35 03/15/19 04:30 03/15/19 08:08 Glucose (Fingerstick) 165 mg/dL (70-99) 274 mg/dL (70-99) 249 mg/dL (70-99) White Blood Count 8.3 x10^3/uL (4.0-11.0) Red Blood Count 4.57 x10^6/uL (4.30-5.70) Hemoglobin 16.3 g/dL (13.0-17.5) Hematocrit 46.5 % (39.0-53.0) Mean Corpuscular Volume 102 fL (79-100) Mean Corpuscular Hemoglobin 36 pg (25-35) Mean Corpuscular Hemoglobin Concent 35 g/dL (31-37) Red Cell Distribution Width 13.3 % (11.5-14.5) Platelet Count 100 x10^3/uL (140-400) Neutrophils (%) (Auto) 67 % (31-73) Lymphocytes (%) (Auto) 20 % (24-48) Monocytes (%) (Auto) 10 % (0-9) Eosinophils (%) (Auto) 3 % (0-3) Basophils (%) (Auto) 1 % (0-3) Neutrophils # (Auto) 5.6 x10^3/uL (1.8-7.7) Lymphocytes # (Auto) 1.6 x10^3/uL (1.0-4.8) Monocytes # (Auto) 0.8 x10^3/uL (0.0-1.1) Eosinophils # (Auto) 0.2 x10^3/uL (0.0-0.7) Basophils # (Auto) 0.1 x10^3/uL (0.0-0.2) Sodium Level 141 mmol/L (136-145) Potassium Level 3.9 mmol/L (3.5-5.1) Chloride Level 103 mmol/L (98-107) Carbon Dioxide Level 33 mmol/L (21-32) Anion Gap 5 (6-14) Blood Urea Nitrogen 11 mg/dL (8-26) Creatinine 0.8 mg/dL (0.7-1.3) Estimated GFR (Cockcroft-Gault) 96.4 BUN/Creatinine Ratio 14 (6-20) Glucose Level 179 mg/dL (70-99) Hemoglobin A1c 8.0 % (4.8-5.6) Calcium Level 9.5 mg/dL (8.5-10.1) Total Bilirubin 1.3 mg/dL (0.2-1.0) Aspartate Amino Transf (AST/SGOT) 37 U/L (15-37) Alanine Aminotransferase (ALT/SGPT) 27 U/L (16-63) Alkaline Phosphatase 84 U/L (46-116) Total Protein 7.3 g/dL (6.4-8.2) Albumin 3.2 g/dL (3.4-5.0) Albumin/Globulin Ratio 0.8 (1.0-1.7) Test 03/15/19 11:45 03/15/19 16:48 03/15/19 20:26 03/16/19 07:23 Glucose (Fingerstick) 175 mg/dL (70-99) 245 mg/dL (70-99) 164 mg/dL (70-99) 172 mg/dL (70-99) Test 03/16/19 11:47 Glucose (Fingerstick) 210 mg/dL (70-99) Laboratory Tests Test 03/15/19 16:48 03/15/19 20:26 03/16/19 07:23 03/16/19 11:47 Glucose (Fingerstick) 245 mg/dL (70-99) 164 mg/dL (70-99) 172 mg/dL (70-99) 210 mg/dL (70-99) Medications Current Medications Prednisone (Prednisone) 60 mg 1X ONCE PO Last administered on 03/13/19at 14:52; Start 03/13/19 at 14:30; Stop 03/13/19 at 14:31; Status DC Ondansetron HCl (Zofran) 4 mg PRN Q8HRS PRN IV NAUSEA/VOMITING; Start 03/13/19 at 16:30; Stop 03/14/19 at 16:29; Status DC Morphine Sulfate (Morphine Sulfate) 4 mg PRN Q2HR PRN IV PAIN; Start 03/13/19 at 16:30; Stop 03/14/19 at 16:29; Status DC Acetaminophen (Tylenol) 650 mg PRN Q4HRS PRN PO FEVER; Start 03/13/19 at 16:30; Stop 03/14/19 at 16:29; Status DC Sodium Chloride 1,000 ml @ 75 mls/hr [id number] IV Last administered on 03/14/19at 05:36; Start 03/13/19 at 17:30; Stop 03/15/19 at 10:58; Status DC Iohexol (Omnipaque 240 Mg/ml) 30 ml 1X ONCE PO Last administered on 03/14/19at 09:30; Start 03/14/19 at 09:30; Stop 03/14/19 at 09:31; Status DC Iohexol (Omnipaque 300 Mg/ml) 75 ml 1X ONCE IV Last administered on 03/14/19at 14:44; Start 03/14/19 at 09:30; Stop 03/14/19 at 09:31; Status DC Info (CONTRAST GIVEN -- Rx MONITORING) 1 each PRN DAILY PRN MC SEE COMMENTS; Start 03/14/19 at 09:30; Stop 03/16/19 at 09:29; Status DC Insulin Human Lispro (HumaLOG) 0-7 UNITS TIDWMEALS SQ ; Start 03/14/19 at 12:00; Stop 03/15/19 at 08:44; Status DC Dextrose (Dextrose 50%-Water Syringe) 12.5 gm PRN Q15MIN PRN IV SEE COMMENTS; Start 03/14/19 at 12:00 Iohexol (Omnipaque 240 Mg/ml) 50 ml STK-MED ONCE .ROUTE ; Start 03/14/19 at 14:25; Stop 03/14/19 at 14:26; Status DC Iohexol (Omnipaque 300 Mg/ml) 100 ml STK-MED ONCE .ROUTE ; Start 03/14/19 at 14:26; Stop 03/14/19 at 14:26; Status DC Insulin Human Lispro (HumaLOG) 0-9 UNITS TIDWMEALS SQ Last administered on 03/16/19at 11:58; Start 03/15/19 at 12:00 Dextrose (Dextrose 50%-Water Syringe) 12.5 gm PRN Q15MIN PRN IV SEE COMMENTS; Start 03/15/19 at 08:45; Status UNV Acetaminophen/ Hydrocodone Bitart (Lortab 5/325) 1 tab PRN Q4HRS PRN PO MODER ATE PAIN, SEVERE PAIN; Start 03/15/19 at 08:45 Morphine Sulfate (Morphine Sulfate) 2 mg PRN Q2HR PRN IV PAIN; Start 03/15/19 at 08:45 Ondansetron HCl (Zofran) 4 mg PRN Q6HRS PRN IVP NAUSEA/VOMITING; Start 03/15/19 at 08:45 Acetaminophen (Tylenol) 500 mg PRN Q6HRS PRN PO MILD PAIN / TEMP; Start 03/15/19 at 08:45 Multivitamins (Thera M Plus) 1 tab DAILY PO Last administered on 03/16/19at 08:04; Start 03/15/19 at 09:00 Metformin HCl (Glucophage) 500 mg BIDWMEALS PO ; Start 03/16/19 at 17:00 Glyburide (Diabeta) 1.25 mg BIDWMEALS PO Last administered on 03/16/19at 09:56; Start 03/16/19 at 08:30 Active Scripts Active Reported Aleve (Naproxen Sodium) 220 Mg Tablet 220 Mg PO PRN PRN Multi-Vitamin Daily (Multivitamin) 1 Each Tablet 1 Each PO DAILY Aspirin 325 Mg Tablet 325 Mg PO DAILY Vitals/I & O Vital Sign - Last 24 Hours 03/15/19 03/15/19 03/15/19 03/16/19 19:00 20:00 23:01 03:03 Temp 98.3 98.0 97.6 98.3 98.0 97.6 Pulse 84 77 78 Resp 20 20 20 B/P (MAP) 175/95 (121) 167/86 (113) 158/88 (111) Pulse Ox 95 94 94 O2 Delivery Room Air Room Air Room Air Room Air 03/16/19 03/16/19 03/16/19 07:00 08:00 11:09 Temp 98.3 97.7 98.3 97.7 Pulse 74 84 Resp 16 18 B/P (MAP) 164/95 (118) 169/101 (123) Pulse Ox 99 94 O2 Delivery Room Air Room Air Room Air Intake and Output 03/15/19 03/15/19 03/16/19 15:00 23:00 07:00 Intake Total 150 ml 200 ml Balance 150 ml 200 ml ESTHER BOURGEOIS MD Mar 16, 2019 15:25
[2019-03-16] MEDS: HYDROcodone/APAP 5/325MG 1 TAB TABLET PO PRN ×2 (15:33→22:29)
[2019-03-16] MEDS: metFORMIN 500 MG TABLET PO SCH (17:09)
[2019-03-16 19:00] VITALS: BP 152/86
[2019-03-16 23:02] VITALS: BP 147/94
[2019-03-17] VITALS (18 sets, daily range): BP systolic 139–182; BP diastolic 81–109
[2019-03-17] MEDS ORDERED: METF500T PO (07:39)
[2019-03-17] MEDS ORDERED: GLYB1.252 PO (07:39)
[2019-03-17] MEDS ORDERED: HYDR-2761 PO (07:39)
[2019-03-17] MEDS: glyBURIDE 1.25 MG TABLET PO SCH ×2 (08:00→16:30)
[2019-03-17] MEDS: INSULIN LISPRO 300 UNITS/3 ML VIAL. SQ SCH ×3 (08:00→16:40)
[2019-03-17] MEDS: metFORMIN 500 MG TABLET PO SCH ×2 (08:00→16:30)
--- NOTE | 2019-03-17 08:30 | NUR ---
Patient remains npo at this time for bone biopsy, denies pain/discomfort at this time, will monitor.
--- NOTE | 2019-03-17 09:02 | PDOC ---
PROGRESS NOTES Chief Complaint Chief Complaint lytic disease in the left iliac and left femur, most consistent with underlying multiple myeloma, bone lesion, suspect malignancy hip pain obese, BMI 31 Dm hgba1c 8 History of Present Illness History of Present Illness HE has no complains, for bone biopsy today and has been NPO As per sunday note ortho - mention of sandra placement possible after biopsy this admission HE still is symptomatic on that leg and can barely bare weight I provided him copies of his bone survey, metastatic scans etc and he is updated of the results BS better since i started [facility] sunday PLAN: bone biopsy today Ortho to hopefully ff up re sandra?OR for that leg COnt [facility] PT OT Will ff up dr smith as oP re bone results - dw patient and Dr Smith Vitals Vitals Vital Signs Date Time Temp Pulse Resp B/P (MAP) Pulse Ox O2 Delivery O2 Flow Rate FiO2 03/17/19 07:00 97.9 82 18 170/92 (118) 94 Room Air 97.9 Physical Exam General: Alert, Oriented X3 Heart: Normal S1, Normal S2 Lungs: Wheezing Abdomen: Soft Extremities: Other (tenderness of the left thigh but no deformity. No palpable mass. Distal neurovascular function is unremarkable.) Skin: Other (the left back over the shoulder blade area shows a 4mm discolored lesion, nearly black in color with irregular borders) Labs LABS Laboratory Tests Test 03/16/19 11:47 03/16/19 16:33 03/17/19 07:14 Glucose (Fingerstick) 210 mg/dL (70-99) 110 mg/dL (70-99) 121 mg/dL (70-99) Review of Systems Review of Systems leg pain, all else 14 pt neg Assessment and Plan Assessmemt and Plan Problems Medical Problems: (1) Multiple myeloma Status: Acute Comment Review of Relevant I have reviewed the following items terese (where applicable) has been applied. Labs Laboratory Tests Test 03/15/19 11:45 03/15/19 16:48 03/15/19 20:26 03/16/19 07:23 Glucose (Fingerstick) 175 mg/dL (70-99) 245 mg/dL (70-99) 164 mg/dL (70-99) 172 mg/dL (70-99) Test 03/16/19 11:47 03/16/19 16:33 03/17/19 07:14 Glucose (Fingerstick) 210 mg/dL (70-99) 110 mg/dL (70-99) 121 mg/dL (70-99) Laboratory Tests Test 03/16/19 11:47 03/16/19 16:33 03/17/19 07:14 Glucose (Fingerstick) 210 mg/dL (70-99) 110 mg/dL (70-99) 121 mg/dL (70-99) Medications Current Medications Prednisone (Prednisone) 60 mg 1X ONCE PO Last administered on 03/13/19at 14:52; Start 03/13/19 at 14:30; Stop 03/13/19 at 14:31; Status DC Ondansetron HCl (Zofran) 4 mg PRN Q8HRS PRN IV NAUSEA/VOMITING; Start 03/13/19 at 16:30; Stop 03/14/19 at 16:29; Status DC Morphine Sulfate (Morphine Sulfate) 4 mg PRN Q2HR PRN IV PAIN; Start 03/13/19 at 16:30; Stop 03/14/19 at 16:29; Status DC Acetaminophen (Tylenol) 650 mg PRN Q4HRS PRN PO FEVER; Start 03/13/19 at 16:30; Stop 03/14/19 at 16:29; Status DC Sodium Chloride 1,000 ml @ 75 mls/hr [id number] IV Last administered on 03/14/19at 05:36; Start 03/13/19 at 17:30; Stop 03/15/19 at 10:58; Status DC Iohexol (Omnipaque 240 Mg/ml) 30 ml 1X ONCE PO Last administered on 03/14/19at 09:30; Start 03/14/19 at 09:30; Stop 03/14/19 at 09:31; Status DC Iohexol (Omnipaque 300 Mg/ml) 75 ml 1X ONCE IV Last administered on 03/14/19at 14:44; Start 03/14/19 at 09:30; Stop 03/14/19 at 09:31; Status DC Info (CONTRAST GIVEN -- Rx MONITORING) 1 each PRN DAILY PRN MC SEE COMMENTS; Start 03/14/19 at 09:30; Stop 03/16/19 at 09:29; Status DC Insulin Human Lispro (HumaLOG) 0-7 UNITS TIDWMEALS SQ ; Start 03/14/19 at 12:00; Stop 03/15/19 at 08:44; Status DC Dextrose (Dextrose 50%-Water Syringe) 12.5 gm PRN Q15MIN PRN IV SEE COMMENTS; Start 03/14/19 at 12:00 Iohexol (Omnipaque 240 Mg/ml) 50 ml STK-MED ONCE .ROUTE ; Start 03/14/19 at 14:25; Stop 03/14/19 at 14:26; Status DC Iohexol (Omnipaque 300 Mg/ml) 100 ml STK-MED ONCE .ROUTE ; Start 03/14/19 at 14:26; Stop 03/14/19 at 14:26; Status DC Insulin Human Lispro (HumaLOG) 0-9 UNITS TIDWMEALS SQ Last administered on 03/16/19at 11:58; Start 03/15/19 at 12:00 Dextrose (Dextrose 50%-Water Syringe) 12.5 gm PRN Q15MIN PRN IV SEE COMMENTS; Start 03/15/19 at 08:45; Status UNV Acetaminophen/ Hydrocodone Bitart (Lortab 5/325) 1 tab PRN Q4HRS PRN PO MODE RATE PAIN, SEVERE PAIN Last administered on 03/16/19at 22:29; Start 03/15/19 at 08:45 Morphine Sulfate (Morphine Sulfate) 2 mg PRN Q2HR PRN IV PAIN; Start 03/15/19 at 08:45 Ondansetron HCl (Zofran) 4 mg PRN Q6HRS PRN IVP NAUSEA/VOMITING; Start 03/15/19 at 08:45 Acetaminophen (Tylenol) 500 mg PRN Q6HRS PRN PO MILD PAIN / TEMP; Start 03/15/19 at 08:45 Multivitamins (Thera M Plus) 1 tab DAILY PO Last administered on 03/16/19at 08:04; Start 03/15/19 at 09:00 Metformin HCl (Glucophage) 500 mg BIDWMEALS PO Last administered on 03/16/19at 17:09; Start 03/16/19 at 17:00 Glyburide (Diabeta) 1.25 mg BIDWMEALS PO Last administered on 03/16/19at 17:09; Start 03/16/19 at 08:30 Active Scripts Active Glyburide 1.25 Mg Tablet 1.25 Mg PO BIDWMEALS Glucophage (Metformin Hcl) 500 Mg Tablet 500 Mg PO BIDWMEALS Hydrocodone-Apap 5-325 (Hydrocodone Bit/Acetaminophen) 1 Tab Tablet 1 Tab PO PRN Q4HRS PRN Reported Aleve (Naproxen Sodium) 220 Mg Tablet 220 Mg PO PRN PRN Multi-Vitamin Daily (Multivitamin) 1 Each Tablet 1 Each PO DAILY Aspirin 325 Mg Tablet 325 Mg PO DAILY Vitals/I & O Vital Sign - Last 24 Hours 03/16/19 03/16/19 03/16/19 03/16/19 11:09 15:00 15:33 17:08 Temp 97.7 98.1 97.7 98.1 Pulse 84 91 Resp 18 18 B/P (MAP) 169/101 (123) 155/87 (109) Pulse Ox 94 96 O2 Delivery Room Air Room Air Room Air Room Air 03/16/19 03/16/19 03/16/19 03/16/19 19:00 19:05 22:29 23:02 Temp 98.0 98.7 98.0 98.7 Pulse 66 77 Resp 20 16 20 B/P (MAP) 152/86 (108) 147/94 (111) Pulse Ox 95 95 93 O2 Delivery Room Air Room Air Room Air Room Air 03/16/19 03/17/19 03/17/19 23:26 03:14 07:00 Temp 97.9 97.9 97.9 97.9 Pulse 74 82 Resp 16 20 18 B/P (MAP) 144/87 (106) 170/92 (118) Pulse Ox 93 96 94 O2 Delivery Room Air Room Air Room Air Intake and Output 03/16/19 03/16/19 03/17/19 15:00 23:00 07:00 Intake Total 1200 ml 400 ml Balance 1200 ml 400 ml KATTY PLASENCIA MD Mar 17, 2019 09:02
[2019-03-17] MEDS ORDERED: fentaNYL PF VIAL 100 MCG/2 ML VIAL ONE (13:40)
[2019-03-17] MEDS ORDERED: MIDAZOLAM HCL/PF 2 MG/2 ML VIAL. ONE (13:40)
--- NOTE | 2019-03-17 13:41 | NUR ---
SW following for discharge planning. Chart reviewed, discussed with RN, pt is having a bone biopsy today, awaiting PT/OT. Possible surgery tomorrow (03/18/19). SW will continue to follow.
[2019-03-17] MEDS ORDERED: LIDOCAINE WITH 8.4% SOD BICARB 3 ML DISP.SYRIN. ONE (13:49)
[2019-03-17] MEDS ORDERED: LIDOCAINE WITH 8.4% SOD BICARB 3 ML DISP.SYRIN. IJ ONE (14:45)
[2019-03-17] MEDS ORDERED: MIDAZOLAM HCL/PF 2 MG/2 ML VIAL. IV ONE (14:45)
[2019-03-17] MEDS ORDERED: fentaNYL PF VIAL 100 MCG/2 ML VIAL IV ONE (14:45)
--- NOTE | 2019-03-17 15:19 | PDOC ---
Provider Note Provider Note 68 yo man with lytic disease lt iliac and lt femur at dx. Now s/p BMBx today doing well with no pain post bx. CBC and Chem ok. Free [place] Light chain elevated 25 Free Lambda Light chain elevated 48.6 Impression: Likely multiple myeloma IM sandra placement for left femur planned 03/18/2019 possibly with bone bx. Plan on post op RT after post op healing to lt femur. Discussed with patient. LISBET CALIX MD Mar 17, 2019 15:19
--- NOTE | 2019-03-17 16:08 | RAD ---
CT-guided lytic bone lesion biopsy, left ilium. 03/17/2019 2:03 PM Indication: Metastatic lesions, multifocal Discussion: The risks and benefits of the procedure, including but not limited to, bleeding and infection were discussed patient. Informed consent was obtained. The patient was brought to the CT scanner and placed in the supine position. A timeout procedure was performed. CT imaging of the pelvis demonstrates a lytic lesion in the anterior left ilium amenable to biopsy. The overlying soft tissues were prepped and draped using maximum sterile barrier technique. 1% lidocaine without epinephrine was administered for local anesthesia. Under intermittent CT guidance, an [employer] needle was advanced into the lesion. No significant cortical be obtained possibly due to lytic nature of the lesion. Aspiration and multiple automated needle biopsies were obtained, and material placed in formalin. The needle was removed and manual pressure held to achieve hemostasis. No immediate complications were identified. The procedure was performed under conscious sedation including continuous cardiopulmonary monitoring via dedicated sedation nurse. Sedation time:40 minutes Impression: CT-guided biopsy, lytic lesion left ilium . PQRS Compliance Statement: One or more of the following individualized dose reduction techniques were utilized for this examination: 1. Automated exposure control 2. Adjustment of the mA and/or kV according to patient size 3. Use of iterative reconstruction technique
[2019-03-17] MEDS: MULTIVITAMIN with MINERAL TABLET. PO SCH (16:30)
--- NOTE | 2019-03-17 17:05 | PDOC ---
PROGRESS NOTES Subjective Subjective HPI -f/u of Bone lesions ROS - pain stable Objective Objective Vital Signs Date Time Temp Pulse Resp B/P (MAP) Pulse Ox O2 Delivery O2 Flow Rate FiO2 03/17/19 15:45 75 18 158/89 (112) 95 Room Air 03/17/19 15:15 98.2 98.2 03/17/19 14:51 2.0 Intake and Output 03/17/19 07:00 Intake Total 1600 ml Balance 1600 ml Intake Oral 1600 ml # Voids 2 Physical Exam Heart: Normal S1, Normal S2 General: Alert, Oriented X3 Lungs: Clear to auscultation Neuro: Normal speech Psych/Mental Status: Mental status NL Assessment Assessment Problems Medical Problems: (1) Multiple myeloma Status: Acute IMPRESSION AND PLAN: 1. Bone lesions clinically consistent with bone metastasis. X-rays of the hip and pelvis on 03/13/2019 revealed lytic lesions of the proximal left femur and left iliac bone consistent with osseous metastatic disease or multiple myeloma. The lesion within the proximal left femoral shaft occupies the entire width of the shaft and this may predispose to pathologic fracture. Hence, I consulted Orthopedic Surgery for possible prophylactic surgery. I also consulted Interventional Radiology for biopsy. I consulted Radiation Oncology in preparation for possible need for palliative radiation therapy subsequently. I will obtain serum protein electrophoresis and immunofixation studies and serum free light chains. CT chest, abdomen and pelvis 03/14/19: There is a lucent lesion of the inferior anterior aspect of the L4 vertebral body. A possible early lytic lesion of the right side of the L2 vertebral body is seen. There is a small lucent lesion of the posterior medial aspect of left Iliac bone. There are 2 lytic lesions which are expansile with cortical erosion of the left iliac bone more anteriorly within the left iliac crest and then more inferiorly. There are 2 small lytic lesions of the right ischial bone just below the acetabulum. A small lytic lesion of the subtrochanteric area of the proximal left femur is seen. Bone scan 03/14/19: Osseous metastatic disease of the proximal shaft of the left femur and the left 11th rib. Skeletal survey: 03/15/19: Agressive permeative lytic trabecular bone lesion of the proximal left femoral shaft concerning for lytic bone metastasis or plasmacytoma. Given lytic lesions elsewhere, a sarcoma would be less likely. Possible small lytic lesion of the C5 vertebral body. Left iliac crest lytic lesions again demonstrated. Findings likely represent lytic metastatic disease or multiple myeloma. PSA normal at 1.25 on 03/14/2019. Lytic lesions on CT suggests multiple myeloma - plan bone marrow bx. 2. Thrombocytopenia, mild. Hemoglobin and WBC is normal, but the platelets are 112 on 03/13/2019. I will continue to monitor. No bleeding. Comment Review of Relevant I have reviewed the following items terese (where applicable) has been applied. Labs Laboratory Tests Test 03/15/19 20:26 03/16/19 07:23 03/16/19 11:47 03/16/19 16:33 Glucose (Fingerstick) 164 mg/dL (70-99) 172 mg/dL (70-99) 210 mg/dL (70-99) 110 mg/dL (70-99) Test 03/17/19 07:14 03/17/19 11:10 03/17/19 16:35 Glucose (Fingerstick) 121 mg/dL (70-99) 115 mg/dL (70-99) 181 mg/dL (70-99) Laboratory Tests Test 03/17/19 07:14 03/17/19 11:10 03/17/19 16:35 Glucose (Fingerstick) 121 mg/dL (70-99) 115 mg/dL (70-99) 181 mg/dL (70-99) Medications Current Medications Prednisone (Prednisone) 60 mg 1X ONCE PO Last administered on 03/13/19at 14:52; Start 03/13/19 at 14:30; Stop 03/13/19 at 14:31; Status DC Ondansetron HCl (Zofran) 4 mg PRN Q8HRS PRN IV NAUSEA/VOMITING; Start 03/13/19 at 16:30; Stop 03/14/19 at 16:29; Status DC Morphine Sulfate (Morphine Sulfate) 4 mg PRN Q2HR PRN IV PAIN; Start 03/13/19 at 16:30; Stop 03/14/19 at 16:29; Status DC Acetaminophen (Tylenol) 650 mg PRN Q4HRS PRN PO FEVER; Start 03/13/19 at 16:30; Stop 03/14/19 at 16:29; Status DC Sodium Chloride 1,000 ml @ 75 mls/hr [id number] IV Last administered on 03/14/19at 05:36; Start 03/13/19 at 17:30; Stop 03/15/19 at 10:58; Status DC Iohexol (Omnipaque 240 Mg/ml) 30 ml 1X ONCE PO Last administered on 03/14/19at 09:30; Start 03/14/19 at 09:30; Stop 03/14/19 at 09:31; Status DC Iohexol (Omnipaque 300 Mg/ml) 75 ml 1X ONCE IV Last administered on 03/14/19at 14:44; Start 03/14/19 at 09:30; Stop 03/14/19 at 09:31; Status DC Info (CONTRAST GIVEN -- Rx MONITORING) 1 each PRN DAILY PRN MC SEE COMMENTS; Start 03/14/19 at 09:30; Stop 03/16/19 at 09:29; Status DC Insulin Human Lispro (HumaLOG) 0-7 UNITS TIDWMEALS SQ ; Start 03/14/19 at 12:00; Stop 03/15/19 at 08:44; Status DC Dextrose (Dextrose 50%-Water Syringe) 12.5 gm PRN Q15MIN PRN IV SEE COMMENTS; Start 03/14/19 at 12:00 Iohexol (Omnipaque 240 Mg/ml) 50 ml STK-MED ONCE .ROUTE ; Start 03/14/19 at 14: 25; Stop 03/14/19 at 14:26; Status DC Iohexol (Omnipaque 300 Mg/ml) 100 ml STK-MED ONCE .ROUTE ; Start 03/14/19 at 14:26; Stop 03/14/19 at 14:26; Status DC Insulin Human Lispro (HumaLOG) 0-9 UNITS TIDWMEALS SQ Last administered on 03/17/19at 16:40; Start 03/15/19 at 12:00 Dextrose (Dextrose 50%-Water Syringe) 12.5 gm PRN Q15MIN PRN IV SEE COMMENTS; Start 03/15/19 at 08:45; Status UNV Acetaminophen/ Hydrocodone Bitart (Lortab 5/325) 1 tab PRN Q4HRS PRN PO MODERATE PAIN, SEVERE PAIN Last administered on 03/16/19at 22:29; Start 03/15/19 at 08:45 Morphine Sulfate (Morphine Sulfate) 2 mg PRN Q2HR PRN IV PAIN; Start 03/15/19 at 08:45 Ondansetron HCl (Zofran) 4 mg PRN Q6HRS PRN IVP NAUSEA/VOMITING; Start 03/15/19 at 08:45 Acetaminophen (Tylenol) 500 mg PRN Q6HRS PRN PO MILD PAIN / TEMP; Start 03/15/19 at 08:45 Multivitamins (Thera M Plus) 1 tab DAILY PO Last administered on 03/17/19at 16:30; Start 03/15/19 at 09:00 Metformin HCl (Glucophage) 500 mg BIDWMEALS PO Last administered on 03/17/19at 16:30; Start 03/16/19 at 17:00 Glyburide (Diabeta) 1.25 mg BIDWMEALS PO Last administered on 03/17/19at 16:30; Start 03/16/19 at 08:30 Ondansetron HCl (Zofran) 4 mg PRN Q6HRS PRN IV NAUSEA/VOMITING; Start 03/18/19 at 07:00; Stop 03/19/19 at 06:59 Fentanyl Citrate (Fentanyl 2ml Vial) 25 mcg PRN Q5MIN PRN IV MILD PAIN 1-3; Start 03/18/19 at 07:00; Stop 03/19/19 at 06:59 Fentanyl Citrate (Fentanyl 2ml Vial) 50 mcg PRN Q5MIN PRN IV MODERATE TO SEVERE PAIN; Start 03/18/19 at 07:00; Stop 03/19/19 at 06:59 Morphine Sulfate (Morphine Sulfate) 1 mg PRN Q10MIN PRN IV SEVERE PAIN 7-10; Start 03/18/19 at 07:00; Stop 03/19/19 at 06:59 Ringer's Solution 1,000 ml @ 30 mls/hr Q24H IV ; Start 03/18/19 at 07:00; Stop 03/18/19 at 18:59 Lidocaine HCl (Xylocaine-Mpf 1% 2ml Vial) 2 ml PRN 1X PRN ID PRIOR TO IV START; Start 03/18/19 at 07:00; Stop 03/19/19 at 06:59 Hydromorphone HCl (Dilaudid) 0.5 mg PRN Q10MIN PRN IV SEV PAIN, Second choice; Start 03/18/19 at 07:00; Stop 03/19/19 at 06:59 Prochlorperazine Edisylate (Compazine) 5 mg PACU PRN PRN IV NAUSEA, MRX1; Start 03/18/19 at 07:00; Stop 03/19/19 at 06:59 Morphine Sulfate 5 mg/Ketorolac Tromethamine 30 mg/Ropivacaine 60 ml/Epinephrine HCl 0.5 mg/Sodium Chloride 100 ml @ 100 mls/hr 1X ONCE INT ART ; Start 03/18/19 at 06:00; Stop 03/18/19 at 06:59 Midazolam HCl (Versed) 2 mg STK-MED ONCE .ROUTE ; Start 03/17/19 at 13:40; Stop 03/17/19 at 13:40; Status DC Fentanyl Citrate (Fentanyl 2ml Vial) 100 mcg STK-MED ONCE .ROUTE ; Start 03/17/19 at 13:40; Stop 03/17/19 at 13:40; Status DC Lidocaine HCl (Buffered Lidocaine 1%) 3 ml STK-MED ONCE .ROUTE ; Start 03/17/19 at 13:49; Stop 03/17/19 at 13:50; Status DC Lidocaine HCl (Buffered Lidocaine 1%) 3 ml 1X ONCE IJ Last administered on 03/17/19at 14:51; Start 03/17/19 at 14:45; Stop 03/17/19 at 14:46; Status DC Midazolam HCl (Versed) 2 mg 1X ONCE IV Last administered on 03/17/19at 14:52; Start 03/17/19 at 14:45; Stop 03/17/19 at 14:46; Status DC Fentanyl Citrate (Fentanyl 2ml Vial) 100 mcg 1X ONCE IV Last administered on 03/17/19at 14:51; Start 03/17/19 at 14:45; Stop 03/17/19 at 14:46; Status DC Active Scripts Active Glyburide 1.25 Mg Tablet 1.25 Mg PO BIDWMEALS Glucophage (Metformin Hcl) 500 Mg Tablet 500 Mg PO BIDWMEALS Hydrocodone-Apap 5-325 (Hydrocodone Bit/Acetaminophen) 1 Tab Tablet 1 Tab PO PRN Q4HRS PRN Reported Aleve (Naproxen Sodium) 220 Mg Tablet 220 Mg PO PRN PRN Multi-Vitamin Daily (Multivitamin) 1 Each Tablet 1 Each PO DAILY Aspirin 325 Mg Tablet 325 Mg PO DAILY Vitals/I & O Vital Sign - Last 24 Hours 03/16/19 03/16/19 03/16/19 03/16/19 17:08 19:00 19:05 22:29 Temp 98.0 98.0 Pulse 66 Resp 20 16 B/P (MAP) 152/86 (108) Pulse Ox 95 95 O2 Delivery Room Air Room Air Room Air Room Air 03/16/19 03/16/19 03/17/19 03/17/19 23:02 23:26 03:14 07:00 Temp 98.7 97.9 97.9 98.7 97.9 97.9 Pulse 77 74 82 Resp 20 16 20 18 B/P (MAP) 147/94 (111) 144/87 (106) 170/92 (118) Pulse Ox 93 93 96 94 O2 Delivery Room Air Room Air Room Air Room Air 03/17/19 03/17/19 03/17/19 03/17/19 10:52 14:10 14:15 14:17 Temp 97.6 97.6 Pulse 84 78 77 78 Resp 18 21 12 14 B/P (MAP) 168/90 (116) Pulse Ox 96 94 94 94 O2 Delivery Room Air Nasal Cannula Nasal Cannula Nasal Cannula O2 Flow Rate 2.0 2.0 2.0 03/17/19 03/17/19 03/17/19 03/17/19 14:20 14:25 14:30 14:35 Pulse 73 73 72 74 Resp 14 16 18 18 Pulse Ox 95 95 95 96 O2 Delivery Nasal Cannula Nasal Cannula Nasal Cannula Nasal Cannula O2 Flow Rate 2.0 2.0 2.0 2.0 03/17/19 03/17/19 03/17/19 03/17/19 14:40 14:45 14:51 14:52 Pulse 73 73 70 Resp 17 19 18 Pulse Ox 95 95 95 96 O2 Delivery Nasal Cannula Nasal Cannula Nasal Cannula O2 Flow Rate 2.0 2.0 2.0 03/17/19 03/17/19 03/17/19 15:15 15:30 15:45 Temp 98.2 98.2 Pulse 72 76 75 Resp 18 18 18 B/P (MAP) 161/88 (112) 156/90 (112) 158/89 (112) Pulse Ox 94 94 95 O2 Delivery Room Air Room Air Room Air Intake and Output 03/16/19 03/16/19 03/17/19 15:00 23:00 07:00 Intake Total 1200 ml 400 ml Balance 1200 ml 400 ml ESTHER BOURGEOIS MD Mar 17, 2019 17:05
[2019-03-17 17:09] LABS: IMMUNOGLOBULIN A 535 mg/dL (61-437); IMMUNOGLOBULIN G 1064 mg/dL (700-1600); IMMUNOGLOBULIN M 301 mg/dL (20-172)
[2019-03-17 18:13] LABS: ALBUM 3.2 g/dL (2.9-4.4); ALPHA 1 0.4 g/dL (0.0-0.4); ALPHA 2 0.6 g/dL (0.4-1.0); BETA 1.1 g/dL (0.7-1.3); GAMMA 1.5 g/dL (0.4-1.8); PROTEIN TOTAL 6.8 g/dL (6.0-8.5); SPEP AG RATIO 0.9 (0.7-1.7)
[2019-03-17] MEDS: HYDROcodone/APAP 5/325MG 1 TAB TABLET PO PRN (19:18)
[2019-03-18] VITALS (7 sets, daily range): BP systolic 93–156; BP diastolic 67–95
[2019-03-18] MEDS: HYDROcodone/APAP 5/325MG 1 TAB TABLET PO PRN (00:06)
[2019-03-18] MEDS ORDERED: MORPHINE SULFATE 5 MG, KETOROLAC 30MG VIAL 30 MG, ROPIVacaine 0.5% PF 60 ML, EPINEPHrin... INT ART ONE ×5 (06:00)
[2019-03-18] MEDS ORDERED: LIDOCAINE 1% PF 2 ML VIAL. ID PRN (07:00)
[2019-03-18] MEDS ORDERED: PROCHLORPERAZINE 10 MG/2 ML VIAL. IV PRN (07:00)
[2019-03-18] MEDS ORDERED: fentaNYL PF VIAL 100 MCG/2 ML VIAL IV PRN (07:00)
[2019-03-18] MEDS ORDERED: IV RINGERS,LACTATED 1000ML 1,000 ML IV SCH (07:00)
[2019-03-18] MEDS ORDERED: ONDANSETRON PF 4 MG/2 ML VIAL. IV PRN (07:00)
[2019-03-18] MEDS ORDERED: HYDROmorphone 2 MG/ML VIAL IV PRN (07:00)
[2019-03-18] MEDS: glyBURIDE 1.25 MG TABLET PO SCH ×2 (08:00→17:30)
[2019-03-18] MEDS: metFORMIN 500 MG TABLET PO SCH ×2 (08:00→17:30)
[2019-03-18] MEDS: INSULIN LISPRO 300 UNITS/3 ML VIAL. SQ SCH ×3 (08:00→17:00)
--- NOTE | 2019-03-18 08:01 | NUR ---
Pt admitted w/ multiple myeloma. Is to have sandra placement in femur today. May benefit from PT/OT Eval and Treat following surgery. Please order after surgery if appropriate. Addendum: 03/18/19 at 0802 by THANIA COVINGTON OT Amended: Links added.
[2019-03-18] MEDS ORDERED: fentaNYL PF VIAL 100 MCG/2 ML VIAL ONE ×2 (08:59→13:14)
[2019-03-18] MEDS ORDERED: LIDOCAINE 2% PF 5 ML VIAL. ONE (08:59)
[2019-03-18] MEDS ORDERED: PROPOFOL 20 ML IV ONE (08:59)
[2019-03-18] MEDS: MULTIVITAMIN with MINERAL TABLET. PO SCH (09:00)
--- NOTE | 2019-03-18 09:12 | PDOC ---
PROGRESS NOTES Subjective Subjective HPI -f/u of Bone lesions clinically consistent with bone metastasis ROS -pain stable Objective Objective Vital Signs Date Time Temp Pulse Resp B/P (MAP) Pulse Ox O2 Delivery O2 Flow Rate FiO2 03/18/19 07:00 97.8 72 16 156/90 (112) 94 Room Air 97.8 03/18/19 01:06 2.0 Intake and Output 03/18/19 07:00 Intake Total 780 ml Balance 780 ml Intake Oral 780 ml # Voids 4 # Bowel Movements 1 Physical Exam Heart: Normal S1, Normal S2 General: Alert, Oriented X3 Lungs: Clear to auscultation Neuro: Normal speech Psych/Mental Status: Mental status NL Assessment Assessment Problems Medical Problems: (1) 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 Bone lesions clinically consistent with bone metastasis. X-rays of the hip and pelvis on 03/13/2019 revealed lytic lesions of the proximal left femur and left iliac bone consistent with osseous metastatic disease or multiple myeloma. The lesion within the proximal left femoral shaft occupies the entire width of the shaft and this may predispose to pathologic fracture. Hence, I consulted Orthopedic Surgery for possible prophylactic surgery. I also consulted Interventional Radiology for biopsy. I consulted Radiation Oncology in preparation for possible need for palliative radiation therapy subsequently. I will obtain serum protein electrophoresis and immunofixation studies and serum free light chains. CT chest, abdomen and pelvis 03/14/19: There is a lucent lesion of the inferior anterior aspect of the L4 vertebral body. A possible early lytic lesion of the right side of the L2 vertebral body is seen. There is a small lucent lesion of the posterior medial aspect of left Iliac bone. There are 2 lytic lesions which are expansile with cortical erosion of the left iliac bone more anteriorly within the left iliac crest and then more inferiorly. There are 2 small lytic lesions of the right ischial bone just below the acetabulum. A small lytic lesion of the subtrochanteric area of the proximal left femur is seen. Bone scan 03/14/19: Osseous metastatic disease of the proximal shaft of the left femur and the left 11th rib. Skeletal survey: 03/15/19: Agressive permeative lytic trabecular bone lesion of the proximal left femoral shaft concerning for lytic bone metastasis or plasmacytoma. Given lytic lesions elsewhere, a sarcoma would be less likely. Possible small lytic lesion of the C5 vertebral body. Left iliac crest lytic lesions again demonstrated. Findings likely represent lytic metastatic disease or multiple myeloma. PSA normal at 1.25 on 03/14/2019. Lytic lesions on CT suggests multiple myeloma - SPEP unremarkable. s/p bone bx 03/17/19. lytic lesion left ilium. Await results 2. Thrombocytopenia, mild. Hemoglobin and WBC is normal, but the platelets are 112 on 03/13/2019. I will continue to monitor. No bleeding. Comment Review of Relevant I have reviewed the following items terese (where applicable) has been applied. Labs Laboratory Tests Test 03/16/19 11:47 03/16/19 16:33 03/17/19 07:14 03/17/19 11:10 Glucose (Fingerstick) 210 mg/dL (70-99) 110 mg/dL (70-99) 121 mg/dL (70-99) 115 mg/dL (70-99) Test 03/17/19 16:35 03/17/19 23:24 03/18/19 07:22 Glucose (Fingerstick) 181 mg/dL (70-99) 165 mg/dL (70-99) 140 mg/dL (70-99) Laboratory Tests Test 03/17/19 11:10 03/17/19 16:35 03/17/19 23:24 03/18/19 07:22 Glucose (Fingerstick) 115 mg/dL (70-99) 181 mg/dL (70-99) 165 mg/dL (70-99) 140 mg/dL (70-99) Medications Current Medications Prednisone (Prednisone) 60 mg 1X ONCE PO Last administered on 03/13/19at 14:52; Start 03/13/19 at 14:30; Stop 03/13/19 at 14:31; Status DC Ondansetron HCl (Zofran) 4 mg PRN Q8HRS PRN IV NAUSEA/VOMITING; Start 03/13/19 at 16:30; Stop 03/14/19 at 16:29; Status DC Morphine Sulfate (Morphine Sulfate) 4 mg PRN Q2HR PRN IV PAIN; Start 03/13/19 at 16:30; Stop 03/14/19 at 16:29; Status DC Acetaminophen (Tylenol) 650 mg PRN Q4HRS PRN PO FEVER; Start 03/13/19 at 16:30; Stop 03/14/19 at 16:29; Status DC Sodium Chloride 1,000 ml @ 75 mls/hr [id number] IV Last administered on 03/14/19at 05:36; Start 03/13/19 at 17:30; Stop 03/15/19 at 10:58; Status DC Iohexol (Omnipaque 240 Mg/ml) 30 ml 1X ONCE PO Last administered on 03/14/19at 09:30; Start 03/14/19 at 09:30; Stop 03/14/19 at 09:31; Status DC Iohexol (Omnipaque 300 Mg/ml) 75 ml 1X ONCE IV Last administered on 03/14/19at 14:44; Start 03/14/19 at 09:30; Stop 03/14/19 at 09:31; Status DC Info (CONTRAST GIVEN -- Rx MONITORING) 1 each PRN DAILY PRN MC SEE COMMENTS; Start 03/14/19 at 09:30; Stop 03/16/19 at 09:29; Status DC Insulin Human Lispro (HumaLOG) 0-7 UNITS TIDWMEALS SQ ; Start 03/14/19 at 12:00; Stop 03/15/19 at 08:44; Status DC Dextrose (Dextrose 50%-Water Syringe) 12.5 gm PRN Q15MIN PRN IV SEE COMMENTS; Start 03/14/19 at 12:00 Iohexol (Omnipaque 240 Mg/ml) 50 ml STK-MED ONCE .ROUTE ; Start 03/14/19 at 14:25; Stop 03/14/19 at 14:26; Status DC Iohexol (Omnipaque 300 Mg/ml) 100 ml STK-MED ONCE .ROUTE ; Start 03/14/19 at 14:26; Stop 03/14/19 at 14:26; Status DC Insulin Human Lispro (HumaLOG) 0-9 UNITS TIDWMEALS SQ Last administered on 03/17/19at 16:40; Start 03/15/19 at 12:00 Dextrose (Dextrose 50%-Water Syringe) 12.5 gm PRN Q15MIN PRN IV SEE COMMENTS; Start 03/15/19 at 08:45; Status UNV Acetaminophen/ Hydrocodone Bitart (Lortab 5/325) 1 tab PRN Q4HRS PRN PO MODERATE PAIN, SEVERE PAIN Last administered on 03/18/19at 00:06; Start 03/15/19 at 08:45 Morphine Sulfate (Morphine Sulfate) 2 mg PRN Q2HR PRN IV PAIN; Start 03/15/19 at 08:45 Ondansetron HCl (Zofran) 4 mg PRN Q6HRS PRN IVP NAUSEA/VOMITING; Start 03/15/19 at 08:45 Acetaminophen (Tylenol) 500 mg PRN Q6HRS PRN PO MILD PAIN / TEMP; Start 03/15/19 at 08:45 Multivitamins (Thera M Plus) 1 tab DAILY PO Last administered on 03/17/19at 16:30; Start 03/15/19 at 09:00 Metformin HCl (Glucophage) 500 mg BIDWMEALS PO Last administered on 03/17/19at 16:30; Start 03/16/19 at 17:00 Glyburide (Diabeta) 1.25 mg BIDWMEALS PO Last administered on 03/17/19at 16:30; Start 03/16/19 at 08:30 Ondansetron HCl (Zofran) 4 mg PRN Q6HRS PRN IV NAUSEA/VOMITING; Start 03/18/19 at 07:00; Stop 03/19/19 at 06:59 Fentanyl Citrate (Fentanyl 2ml Vial) 25 mcg PRN Q5MIN PRN IV MILD PAIN 1-3; Start 03/18/19 at 07:00; Stop 03/19/19 at 06:59 Fentanyl Citrate (Fentanyl 2ml Vial) 50 mcg PRN Q5MIN PRN IV MODERATE TO SEVERE PAIN; Start 03/18/19 at 07:00; Stop 03/19/19 at 06:59 Morphine Sulfate (Morphine Sulfate) 1 mg PRN Q10MIN PRN IV SEVERE PAIN 7-10; Start 03/18/19 at 07:00; Stop 03/19/19 at 06:59 Ringer's Solution 1,000 ml @ 30 mls/hr Q24H IV ; Start 03/18/19 at 07:00; Stop 03/18/19 at 18:59 Lidocaine HCl (Xylocaine-Mpf 1% 2ml Vial) 2 ml PRN 1X PRN ID PRIOR TO IV START; Start 03/18/19 at 07:00; Stop 03/19/19 at 06:59 Hydromorphone HCl (Dilaudid) 0.5 mg PRN Q10MIN PRN IV SEV PAIN, Second choice; Start 03/18/19 at 07:00; Stop 03/19/19 at 06:59 Prochlorperazine Edisylate (Compazine) 5 mg PACU PRN PRN IV NAUSEA, MRX1; Start 03/18/19 at 07:00; Stop 03/19/19 at 06:59 Morphine Sulfate 5 mg/Ketorolac Tromethamine 30 mg/Ropivacaine 60 ml/Epinephrine HCl 0.5 mg/Sodium Chloride 100 ml @ 100 mls/hr 1X ONCE INT ART ; Start 03/18/19 at 06:00; Stop 03/18/19 at 06:59; Status DC Midazolam HCl (Versed) 2 mg STK-MED ONCE .ROUTE ; Start 03/17/19 at 13:40; Stop 03/17/19 at 13:40; Status DC Fentanyl Citrate (Fentanyl 2ml Vial) 100 mcg STK-MED ONCE .ROUTE ; Start 03/17/19 at 13:40; Stop 03/17/19 at 13:40; Status DC Lidocaine HCl (Buffered Lidocaine 1%) 3 ml STK-MED ONCE .ROUTE ; Start 03/17/19 at 13:49; Stop 03/17/19 at 13:50; Status DC Lidocaine HCl (Buffered Lidocaine 1%) 3 ml 1X ONCE IJ Last administered on 03/17/19at 14:51; Start 03/17/19 at 14:45; Stop 03/17/19 at 14:46; Status DC Midazolam HCl (Versed) 2 mg 1X ONCE IV Last administered on 03/17/19at 14:52; Start 03/17/19 at 14:45; Stop 03/17/19 at 14:46; Status DC Fentanyl Citrate (Fentanyl 2ml Vial) 100 mcg 1X ONCE IV Last administered on 03/17/19at 14:51; Start 03/17/19 at 14:45; Stop 03/17/19 at 14:46; Status DC Cefazolin Sodium/ Dextrose 50 ml @ 100 mls/hr 1X PREOP PRN IV SEE COMMENTS; Start 03/18/19 at 06:00 Active Scripts Active Glyburide 1.25 Mg Tablet 1.25 Mg PO BIDWMEALS Glucophage (Metformin Hcl) 500 Mg Tablet 500 Mg PO BIDWMEALS Hydrocodone-Apap 5-325 (Hydrocodone Bit/Acetaminophen) 1 Tab Tablet 1 Tab PO PRN Q4HRS PRN Reported Aleve (Naproxen Sodium) 220 Mg Tablet 220 Mg PO PRN PRN Multi-Vitamin Daily (Multivitamin) 1 Each Tablet 1 Each PO DAILY Aspirin 325 Mg Tablet 325 Mg PO DAILY Vitals/I & O Vital Sign - Last 24 Hours 03/17/19 03/17/19 03/17/19 03/17/19 10:52 14:10 14:15 14:17 Temp 97.6 97.6 Pulse 84 78 77 78 Resp 18 21 12 14 B/P (MAP) 168/90 (116) Pulse Ox 96 94 94 94 O2 Delivery Room Air Nasal Cannula Nasal Cannula Nasal Cannula O2 Flow Rate 2.0 2.0 2.0 03/17/19 03/17/19 03/17/19 03/17/19 14:20 14:25 14:30 14:35 Pulse 73 73 72 74 Resp 14 16 18 18 Pulse Ox 95 95 95 96 O2 Delivery Nasal Cannula Nasal Cannula Nasal Cannula Nasal Cannula O2 Flow Rate 2.0 2.0 2.0 2.0 03/17/19 03/17/19 03/17/19 03/17/19 14:40 14:45 14:51 14:52 Pulse 73 73 70 Resp 17 19 18 Pulse Ox 95 95 95 96 O2 Delivery Nasal Cannula Nasal Cannula Nasal Cannula O2 Flow Rate 2.0 2.0 2.0 03/17/19 03/17/19 03/17/19 03/17/19 15:15 15:30 15:45 19:00 Temp 98.2 98.3 98.2 98.3 Pulse 72 76 75 85 Resp 18 18 18 18 B/P (MAP) 161/88 (112) 156/90 (112) 158/89 (112) 139/82 (101) Pulse Ox 94 94 95 95 O2 Delivery Room Air Room Air Room Air Room Air 03/17/19 03/17/19 03/17/19 03/17/19 19:18 20:00 20:18 23:00 Temp 98.3 98.3 Pulse 82 Resp 18 20 18 B/P (MAP) 139/81 (100) Pulse Ox 95 93 93 O2 Delivery Room Air Room Air Room Air Room Air O2 Flow Rate 2.0 03/18/19 03/18/19 03/18/19 03/18/19 00:06 01:06 03:00 07:00 Temp 97.8 97.8 97.8 97.8 Pulse 65 72 Resp 20 18 18 16 B/P (MAP) 147/95 (112) 156/90 (112) Pulse Ox 93 93 96 94 O2 Delivery Room Air Room Air Room Air Room Air O2 Flow Rate 2.0 Intake and Output 03/17/19 03/17/19 03/18/19 15:00 23:00 07:00 Intake Total 600 ml 180 ml Balance 600 ml 180 ml ESTHER BOURGEOIS MD Mar 18, 2019 09:12
[2019-03-18] MEDS ORDERED: DEXAMETHASONE SOD PHOS 4 MG/ML VIAL ONE (11:26)
[2019-03-18] MEDS ORDERED: ONDANSETRON PF 4 MG/2 ML VIAL. ONE (11:26)
[2019-03-18] MEDS ORDERED: MIDAZOLAM HCL/PF 2 MG/2 ML VIAL. ONE (11:46)
--- NOTE | 2019-03-18 12:00 | PDOC ---
PROGRESS NOTES Chief Complaint Chief Complaint lytic disease in the left iliac and left femur, most consistent with underlying multiple myeloma, bone lesion, suspect malignancy hip pain obese, BMI 31 Dm [id number] 8 History of Present Illness History of Present Illness In the OR today, having sandra placement on that leg, THEN planned for possible RT in house, first session Will await PT.OT recs post OR s./p bone biopsy for that lytic lesion 03/17/19 PLAN: Post op lab, care, pain control and pT oT Inhouse RT planned post OR, at least first session dw case mx Vitals Vitals Vital Signs Date Time Temp Pulse Resp B/P (MAP) Pulse Ox O2 Delivery O2 Flow Rate FiO2 03/18/19 10:50 97.5 68 20 156/89 95 Room Air 97.5 03/18/19 01:06 2.0 Physical Exam General: Alert, Oriented X3 Heart: Normal S1, Normal S2 Lungs: Wheezing Abdomen: Soft Extremities: Other (tenderness of the left thigh but no deformity. No palpable mass. 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 Labs Laboratory Tests Test 03/16/19 16:33 03/17/19 07:14 03/17/19 11:10 03/17/19 16:35 Glucose (Fingerstick) 110 mg/dL (70-99) 121 mg/dL (70-99) 115 mg/dL (70-99) 181 mg/dL (70-99) Test 03/17/19 23:24 03/18/19 07:22 Glucose (Fingerstick) 165 mg/dL (70-99) 140 mg/dL (70-99) Laboratory Tests Test 03/17/19 16:35 03/17/19 23:24 03/18/19 07:22 Glucose (Fingerstick) 181 mg/dL (70-99) 165 mg/dL (70-99) 140 mg/dL (70-99) Medications Current Medications Prednisone (Prednisone) 60 mg 1X ONCE PO Last administered on 03/13/19at 14:52; Start 03/13/19 at 14:30; Stop 03/13/19 at 14:31; Status DC Ondansetron HCl (Zofran) 4 mg PRN Q8HRS PRN IV NAUSEA/VOMITING; Start 03/13/19 at 16:30; Stop 03/14/19 at 16:29; Status DC Morphine Sulfate (Morphine Sulfate) 4 mg PRN Q2HR PRN IV PAIN; Start 03/13/19 at 16:30; Stop 03/14/19 at 16:29; Status DC Acetaminophen (Tylenol) 650 mg PRN Q4HRS PRN PO FEVER; Start 03/13/19 at 16:30; Stop 03/14/19 at 16:29; Status DC Sodium Chloride 1,000 ml @ 75 mls/hr [id number] IV Last administered on 03/14/19at 05:36; Start 03/13/19 at 17:30; Stop 03/15/19 at 10:58; Status DC Iohexol (Omnipaque 240 Mg/ml) 30 ml 1X ONCE PO Last administered on 03/14/19at 09:30; Start 03/14/19 at 09:30; Stop 03/14/19 at 09:31; Status DC Iohexol (Omnipaque 300 Mg/ml) 75 ml 1X ONCE IV Last administered on 03/14/19at 14:44; Start 03/14/19 at 09:30; Stop 03/14/19 at 09:31; Status DC Info (CONTRAST GIVEN -- Rx MONITORING) 1 each PRN DAILY PRN MC SEE COMMENTS; Start 03/14/19 at 09:30; Stop 03/16/19 at 09:29; Status DC Insulin Human Lispro (HumaLOG) 0-7 UNITS TIDWMEALS SQ ; Start 03/14/19 at 12:00; Stop 03/15/19 at 08:44; Status DC Dextrose (Dextrose 50%-Water Syringe) 12.5 gm PRN Q15MIN PRN IV SEE COMMENTS; Start 03/14/19 at 12:00 Iohexol (Omnipaque 240 Mg/ml) 50 ml STK-MED ONCE .ROUTE ; Start 03/14/19 at 14:25; Stop 03/14/19 at 14:26; Status DC Iohexol (Omnipaque 300 Mg/ml) 100 ml STK-MED ONCE .ROUTE ; Start 03/14/19 at 14:26; Stop 03/14/19 at 14:26; Status DC Insulin Human Lispro (HumaLOG) 0-9 UNITS TIDWMEALS SQ Last administered on 03/17/19at 16:40; Start 03/15/19 at 12:00 Dextrose (Dextrose 50%-Water Syringe) 12.5 gm PRN Q15MIN PRN IV SEE COMMENTS; Start 03/15/19 at 08:45; Status UNV Acetaminophen/ Hydrocodone Bitart (Lortab 5/325) 1 tab PRN Q4HRS PRN PO MODERATE PAIN, SEVERE PAIN Last administered on 03/18/19at 00:06; Start 03/15/19 at 08:45 Morphine Sulfate (Morphine Sulfate) 2 mg PRN Q2HR PRN IV PAIN; Start 03/15/19 at 08:45 Ondansetron HCl (Zofran) 4 mg PRN Q6HRS PRN IVP NAUSEA/VOMITING; Start 03/15/19 at 08:45 Acetaminophen (Tylenol) 500 mg PRN Q6HRS PRN PO MILD PAIN / TEMP; Start 03/15/19 at 08:45 Multivitamins (Thera M Plus) 1 tab DAILY PO Last administered on 03/17/19at 16:30; Start 03/15/19 at 09:00 Metformin HCl (Glucophage) 500 mg BIDWMEALS PO Last administered on 03/17/19at 16:30; Start 03/16/19 at 17:00 Glyburide (Diabeta) 1.25 mg BIDWMEALS PO Last administered on 03/17/19at 16:30; Start 03/16/19 at 08:30 Ondansetron HCl (Zofran) 4 mg PRN Q6HRS PRN IV NAUSEA/VOMITING; Start 03/18/19 at 07:00; Stop 03/19/19 at 06:59 Fentanyl Citrate (Fentanyl 2ml Vial) 25 mcg PRN Q5MIN PRN IV MILD PAIN 1-3; Start 03/18/19 at 07:00; Stop 03/19/19 at 06:59 Fentanyl Citrate (Fentanyl 2ml Vial) 50 mcg PRN Q5MIN PRN IV MODERATE TO SEVERE PAIN; Start 03/18/19 at 07:00; Stop 03/19/19 at 06:59 Morphine Sulfate (Morphine Sulfate) 1 mg PRN Q10MIN PRN IV SEVERE PAIN 7-10; Start 03/18/19 at 07:00; Stop 03/19/19 at 06:59 Ringer's Solution 1,000 ml @ 30 mls/hr Q24H IV Last administered on 03/18/19at 10:45; Start 03/18/19 at 07:00; Stop 03/18/19 at 18:59 Lidocaine HCl (Xylocaine-Mpf 1% 2ml Vial) 2 ml PRN 1X PRN ID PRIOR TO IV START; Start 03/18/19 at 07:00; Stop 03/19/19 at 06:59 Hydromorphone HCl (Dilaudid) 0.5 mg PRN Q10MIN PRN IV SEV PAIN, Second choice; Start 03/18/19 at 07:00; Stop 03/19/19 at 06:59 Prochlorperazine Edisylate (Compazine) 5 mg PACU PRN PRN IV NAUSEA, MRX1; Start 03/18/19 at 07:00; Stop 03/19/19 at 06:59 Morphine Sulfate 5 mg/Ketorolac Tromethamine 30 mg/Ropivacaine 60 ml/Epinephrine HCl 0.5 mg/Sodium Chloride 100 ml @ 100 mls/hr 1X ONCE INT ART ; Start 03/18/19 at 06:00; Stop 03/18/19 at 06:59; Status DC Midazolam HCl (Versed) 2 mg STK-MED ONCE .ROUTE ; Start 03/17/19 at 13:40; Stop 03/17/19 at 13:40; Status DC Fentanyl Citrate (Fentanyl 2ml Vial) 100 mcg STK-MED ONCE .ROUTE ; Start 03/17/19 at 13:40; Stop 03/17/19 at 13:40; Status DC Lidocaine HCl (Buffered Lidocaine 1%) 3 ml STK-MED ONCE .ROUTE ; Start 03/17/19 at 13:49; Stop 03/17/19 at 13:50; Status DC Lidocaine HCl (Buffered Lidocaine 1%) 3 ml 1X ONCE IJ Last administered on 03/17/19at 14:51; Start 03/17/19 at 14:45; Stop 03/17/19 at 14:46; Status DC Midazolam HCl (Versed) 2 mg 1X ONCE IV Last administered on 03/17/19at 14:52; Start 03/17/19 at 14:45; Stop 03/17/19 at 14:46; Status DC Fentanyl Citrate (Fentanyl 2ml Vial) 100 mcg 1X ONCE IV Last administered on 03/17/19at 14:51; Start 03/17/19 at 14:45; Stop 03/17/19 at 14:46; Status DC Cefazolin Sodium/ Dextrose 50 ml @ 100 mls/hr 1X PREOP PRN IV SEE COMMENTS; Start 03/18/19 at 06:00 Propofol 20 ml @ As Directed STK-MED ONCE IV ; Start 03/18/19 at 08:59; Stop 03/18/19 at 08:59; Status DC Lidocaine HCl (Lidocaine Pf 2% Vial) 5 ml STK-MED ONCE .ROUTE ; Start 03/18/19 at 08:59; Stop 03/18/19 at 08:59; Status DC Fentanyl Citrate (Fentanyl 2ml Vial) 100 mcg STK-MED ONCE .ROUTE ; Start 03/18/19 at 08:59; Stop 03/18/19 at 08:59; Status DC Ondansetron HCl (Zofran) 4 mg STK-MED ONCE .ROUTE ; Start 03/18/19 at 11:26; Stop 03/18/19 at 11:26; Status DC Dexamethasone Sodium Phosphate (Decadron) 4 mg STK-MED ONCE .ROUTE ; Start 03/18/19 at 11:26; Stop 03/18/19 at 11:26; Status DC Midazolam HCl (Versed) 2 mg STK-MED ONCE .ROUTE ; Start 03/18/19 at 11:46; Stop 03/18/19 at 11:46; Status DC Active Scripts Active Glyburide 1.25 Mg Tablet 1.25 Mg PO BIDWMEALS Glucophage (Metformin Hcl) 500 Mg Tablet 500 Mg PO BIDWMEALS Hydrocodone-Apap 5-325 (Hydrocodone Bit/Acetaminophen) 1 Tab Tablet 1 Tab PO PRN Q4HRS PRN Reported Aleve (Naproxen Sodium) 220 Mg Tablet 220 Mg PO PRN PRN Multi-Vitamin Daily (Multivitamin) 1 Each Tablet 1 Each PO DAILY Aspirin 325 Mg Tablet 325 Mg PO DAILY Vitals/I & O Vital Sign - Last 24 Hours 03/17/19 03/17/19 03/17/19 03/17/19 14:10 14:15 14:17 14:20 Pulse 78 77 78 73 Resp 21 12 14 14 Pulse Ox 94 94 94 95 O2 Delivery Nasal Cannula Nasal Cannula Nasal Cannula Nasal Cannula O2 Flow Rate 2.0 2.0 2.0 2.0 03/17/19 03/17/19 03/17/19 03/17/19 14:25 14:30 14:35 14:40 Pulse 73 72 74 73 Resp 16 18 18 17 Pulse Ox 95 95 96 95 O2 Delivery Nasal Cannula Nasal Cannula Nasal Cannula Nasal Cannula O2 Flow Rate 2.0 2.0 2.0 2.0 03/17/19 03/17/19 03/17/19 03/17/19 14:45 14:51 14:52 15:15 Temp 98.2 98.2 Pulse 73 70 72 Resp 19 18 18 B/P (MAP) 161/88 (112) Pulse Ox 95 95 96 94 O2 Delivery Nasal Cannula Nasal Cannula Room Air O2 Flow Rate 2.0 2.0 03/17/19 03/17/19 03/17/19 03/17/19 15:30 15:45 19:00 19:18 Temp 98.3 98.3 Pulse 76 75 85 Resp 18 18 18 18 B/P (MAP) 156/90 (112) 158/89 (112) 139/82 (101) Pulse Ox 94 95 95 95 O2 Delivery Room Air Room Air Room Air Room Air 03/17/19 03/17/19 03/17/19 03/18/19 20:00 20:18 23:00 00:06 Temp 98.3 98.3 Pulse 82 Resp 20 18 20 B/P (MAP) 139/81 (100) Pulse Ox 93 93 93 O2 Delivery Room Air Room Air Room Air Room Air O2 Flow Rate 2.0 03/18/19 03/18/19 03/18/19 03/18/19 01:06 03:00 07:00 08:00 Temp 97.8 97.8 97.8 97.8 Pulse 65 72 Resp 18 18 16 B/P (MAP) 147/95 (112) 156/90 (112) Pulse Ox 93 96 94 O2 Delivery Room Air Room Air Room Air Room Air O2 Flow Rate 2.0 03/18/19 10:50 Temp 97.5 97.5 Pulse 68 Resp 20 B/P (MAP) 156/89 Pulse Ox 95 O2 Delivery Room Air Intake and Output 03/17/19 03/17/19 03/18/19 15:00 23:00 07:00 Intake Total 600 ml 180 ml Balance 600 ml 180 ml KATTY PLASENCIA MD Mar 18, 2019 12:00
[2019-03-18] MEDS ORDERED: PHENYLEPHRINE in 0.9% NACL PF 1 MG/10 ML SYRINGE. IV ONE (12:12)
[2019-03-18] MEDS ORDERED: ePHEDrine PF IN SALINE 50 MG/10 ML SYRINGE. IV ONE (12:22)
--- NOTE | 2019-03-18 12:28 | NUR ---
SW following. Pt having surgery today, PT/OT for after surgery. Pt will transfer to the 4th floor after surgery. SW will continue to follow.
--- NOTE | 2019-03-18 13:44 | NUR ---
All belongings were transferred to room 414.
[2019-03-18] MEDS: MORPHINE SULFATE 2 MG/ML VIAL. IV PRN ×4 (14:21→14:56)
[2019-03-18] MEDS: fentaNYL PF VIAL 100 MCG/2 ML VIAL IV PRN ×4 (14:30→17:30)
--- NOTE | 2019-03-18 14:31 | PDOC4 ---
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 He did have a biopsy yesterday. Bone scan shows multiple lesions in the skeleton including pathologic rib fracture and the left femur lesion. He has had bone pain of the femur and there is an impending fracture. I spoke to him about the risks and benefits of proceeding with prophylactic fixation, prior to sustaining a fracture. He might require postoperative irradiation to help with the painful lesion. We talked about the risks of surgery such as infection, continued pain, bleeding, blood clots, or other potential surgical or anesthetic complications. All of his questions about surgery were answered and he desires to proceed. PROCEDURE IN DETAIL: The patient was identified in the preoperative holding area. The correct left hip was marked by me. The patient was taken to the operating room, where the patient was anesthetized by the Department of Anesthes ia. Preoperative antibiotics were given intravenously. The HANA table was used and the well leg was placed in a padded lithotomy leg garcía while the foot of the left leg was placed in a traction foot boot but no traction was needed as there is not a fracture yet. A time-out procedure was performed. The image intensifier was used, and the site of the femoral shaft lesion confirmed. All of the images were interpreted intraoperatively by me, and the image intensifier was used throughout the case. The left hip area was prepared in sterile fashion with ChloraPrep solution and a sterile barrier Ioban hip drape was used. An incision was made over the superior aspect of the greater trochanter. A 3.2 mm guide pin was placed at the tip of the greater trochanter, and advanced into the intramedullary canal. The one step conical reamer was used over the guidewire, and a reamer sleeve was used to protect the soft tissues. A laparoscopic device was used as an intramedullary grasper to take a specimen from the intramedullary lesion, and the image intensifier was used to confirm the positioning as I grasped the specimen with the grasper. This was sent for permanent specimen. A long guide pin was placed down the intramedullary canal and the length was measured. The nail length was chosen based on that measurement. The canal was sequentially reamed for a long nail until intramedullary chatter occurred. The nail diameter was chosen based on the intramedullary chatter. The chosen nail was attached to the targeting device w ith the Nail Holding Screw. The nail was placed down the canal on the targeting device, and the guide wire was removed. A second incision was now used over the lower part of the greater trochanter, to place a guide pin through the guide, near the center-center position of the femoral head, and measured. The tunnel for the lag screw was reamed using the cannulated Lag Screw Step Drill. The chosen lag screw was inserted using the guide and advanced until there was a low tip-apex distance, by using sequential checks on the image intensifier. A Set Screw was now placed to lock the Lag Screw. Finally, two 5.0 mm diameter Distal Cross Lock Screws were placed distally near the knee, using a freehand technique and the image intensifier, after predrilling. Satisfactory fixation and hardware position was confirmed using image intensifier views in multiple planes. Copious irrigation was used and the fascia was closed with #1 PDS. I used a multidrug injection for hemostasis and pain relief which includes ropivacaine, epinephrine, and morphine. Bovie electrocautery was used for hemostasis. My actuarial assistant completed the closure with 2-0 PDS and ilana. A bulky sterile dressing was applied. The patient was gently transferred from the fracture table back to a hospital bed. There were no apparent complications. HOA MORALES MD Mar 18, 2019 14:31
--- NOTE | 2019-03-18 15:00 | NUR ---
Rec'd from PACU post Lt hip nailing. Pt awake and alert. VSS. on room air.Lt hip dsg dry with ice bag. neuro/vasc intaxct adithya lower ext. Fent IV for c/o pain 6. No family here at this time. Pt oriented to room and call light. Will monitor pain closely. Denies any N/V. IV patent. liter bag is complete. Will monitor oral intake
[2019-03-19 03:10] VITALS: BP 109/57
[2019-03-19 04:58] LABS: BASO % 0 % (0-3); EOS % 0 % (0-3); HEMATOCRIT 40.2 % (39.0-53.0); LYMPH # 0.5 x10^3/uL (1.0-4.8); LYMPH % 5 % (24-48); MEAN CORPUSCULAR HEMOGLOBIN 35 pg (25-35); MEAN CORPUSCULAR HGB CONC 35 g/dL (31-37); MEAN CORPUSCULAR VOLUME 101 fL (79-100); MONO # 1.4 x10^3/uL (0.0-1.1); MONO % 13 % (0-9); NEUT # 8.8 x10^3/uL (1.8-7.7); NEUT % 82 % (31-73); PLATELET COUNT 88 x10^3/uL (140-400); RED BLOOD COUNT 3.96 x10^6/uL (4.30-5.70); RED CELL DISTRIBUTION WIDTH 12.9 % (11.5-14.5); WHITE BLOOD COUNT 10.8 x10^3/uL (4.0-11.0)
[2019-03-19 05:54] LABS: CALCIUM 8.7 mg/dL (8.5-10.1); CREATININE 1.2 mg/dL (0.7-1.3); GFR 60.4
[2019-03-19 06:49] LABS: POTASSIUM 3.4 mmol/L (3.5-5.1)
[2019-03-19 07:00] VITALS: BP 118/66
[2019-03-19] MEDS: INSULIN LISPRO 300 UNITS/3 ML VIAL. SQ SCH ×3 (08:00→16:48)
--- NOTE | 2019-03-19 08:20 | PDOC ---
ORTHO PROGRESS NOTES Subjective Patient states some mild stinging around wound with pain at a 5-6. Post-op Day: 1 Procedure Prophylactic treatment of metastatic disease in left femur with IM Nail Vitals Vital Signs Date Time Temp Pulse Resp B/P (MAP) Pulse Ox O2 Delivery O2 Flow Rate FiO2 03/19/19 07:00 97.9 89 18 118/66 (83) 92 Room Air 97.9 03/18/19 15:05 2 Labs Laboratory Tests Test 03/17/19 11:10 03/17/19 16:35 03/17/19 23:24 03/18/19 07:22 Glucose (Fingerstick) 115 mg/dL (70-99) 181 mg/dL (70-99) 165 mg/dL (70-99) 140 mg/dL (70-99) Test 03/18/19 14:10 03/18/19 16:55 03/18/19 20:52 03/19/19 04:20 Glucose (Fingerstick) 145 mg/dL (70-99) 210 mg/dL (70-99) 296 mg/dL (70-99) White Blood Count 10.8 x10^3/uL (4.0-11.0) Red Blood Count 3.96 x10^6/uL (4.30-5.70) Hemoglobin 14.0 g/dL (13.0-17.5) Hematocrit 40.2 % (39.0-53.0) Mean Corpuscular Volume 101 fL (79-100) Mean Corpuscular Hemoglobin 35 pg (25-35) Mean Corpuscular Hemoglobin Concent 35 g/dL (31-37) Red Cell Distribution Width 12.9 % (11.5-14.5) Platelet Count 88 x10^3/uL (140-400) Neutrophils (%) (Auto) 82 % (31-73) Lymphocytes (%) (Auto) 5 % (24-48) Monocytes (%) (Auto) 13 % (0-9) Eosinophils (%) (Auto) 0 % (0-3) Basophils (%) (Auto) 0 % (0-3) Neutrophils # (Auto) 8.8 x10^3/uL (1.8-7.7) Lymphocytes # (Auto) 0.5 x10^3/uL (1.0-4.8) Monocytes # (Auto) 1.4 x10^3/uL (0.0-1.1) Eosinophils # (Auto) 0.0 x10^3/uL (0.0-0.7) Basophils # (Auto) 0.0 x10^3/uL (0.0-0.2) Sodium Level 138 mmol/L (136-145) Potassium Level 3.4 mmol/L (3.5-5.1) Chloride Level 103 mmol/L (98-107) Carbon Dioxide Level 28 mmol/L (21-32) Anion Gap 7 (6-14) Blood Urea Nitrogen 20 mg/dL (8-26) Creatinine 1.2 mg/dL (0.7-1.3) Estimated GFR (Cockcroft-Gault) 60.4 Glucose Level 171 mg/dL (70-99) Calcium Level 8.7 mg/dL (8.5-10.1) Test 03/19/19 07:32 Glucose (Fingerstick) 123 mg/dL (70-99) Laboratory Tests Test 03/18/19 14:10 03/18/19 16:55 03/18/19 20:52 03/19/19 04:20 Glucose (Fingerstick) 145 mg/dL (70-99) 210 mg/dL (70-99) 296 mg/dL (70-99) White Blood Count 10.8 x10^3/uL (4.0-11.0) Red Blood Count 3.96 x10^6/uL (4.30-5.70) Hemoglobin 14.0 g/dL (13.0-17.5) Hematocrit 40.2 % (39.0-53.0) Mean Corpuscular Volume 101 fL (79-100) Mean Corpuscular Hemoglobin 35 pg (25-35) Mean Corpuscular Hemoglobin Concent 35 g/dL (31-37) Red Cell Distribution Width 12.9 % (11.5-14.5) Platelet Count 88 x10^3/uL (140-400) Neutrophils (%) (Auto) 82 % (31-73) Lymphocytes (%) (Auto) 5 % (24-48) Monocytes (%) (Auto) 13 % (0-9) Eosinophils (%) (Auto) 0 % (0-3) Basophils (%) (Auto) 0 % (0-3) Neutrophils # (Auto) 8.8 x10^3/uL (1.8-7.7) Lymphocytes # (Auto) 0.5 x10^3/uL (1.0-4.8) Monocytes # (Auto) 1.4 x10^3/uL (0.0-1.1) Eosinophils # (Auto) 0.0 x10^3/uL (0.0-0.7) Basophils # (Auto) 0.0 x10^3/uL (0.0-0.2) Sodium Level 138 mmol/L (136-145) Potassium Level 3.4 mmol/L (3.5-5.1) Chloride Level 103 mmol/L (98-107) Carbon Dioxide Level 28 mmol/L (21-32) Anion Gap 7 (6-14) Blood Urea Nitrogen 20 mg/dL (8-26) Creatinine 1.2 mg/dL (0.7-1.3) Estimated GFR (Cockcroft-Gault) 60.4 Glucose Level 171 mg/dL (70-99) Calcium Level 8.7 mg/dL (8.5-10.1) Test 03/19/19 07:32 Glucose (Fingerstick) 123 mg/dL (70-99) Notes awake and alert eating breakfast in bed. Assessment and Plan POD 3 1 S/P Prophylactic treatment of metastatic disease with IM Nail Left Femur motor land sensation intact distally calf soft and non tender dressing dry and intact PT to evaluate TRISTA WILLETT APRN Mar 19, 2019 08:20
[2019-03-19] MEDS: metFORMIN 500 MG TABLET PO SCH ×2 (08:27→16:49)
[2019-03-19] MEDS: glyBURIDE 1.25 MG TABLET PO SCH ×2 (08:27→16:48)
[2019-03-19] MEDS: MULTIVITAMIN with MINERAL TABLET. PO SCH (08:28)
[2019-03-19] MEDS: HYDROcodone/APAP 5/325MG 1 TAB TABLET PO PRN ×2 (08:28→21:21)
[2019-03-19] MEDS ORDERED: POTASSIUM CHLORIDE 20 MEQ TABLET.ER. PO ONE (08:30)
--- NOTE | 2019-03-19 09:45 | PDOC ---
PROGRESS NOTES Chief Complaint Chief Complaint lytic disease in the left iliac and left s/p sandra sx ortho 03/18/19 femur, most consistent with underlying multiple myeloma, s/p bone biopsy bone lesion, suspect malignancy s/p bone biopsy hip pain obese, BMI 31 Dm hgba1c 8 History of Present Illness History of Present Illness s/p sandra sx yesterday ortho Post op labs look great NO complaints, but he still has to work with PT today and see where his dc dispo is PAth results bone biopsy still pending ANd some bone samples were also taken intra op yesterday Sounds like the RT bone is planned after he heals from OR HE is amenable to rehab PLAN: PT OT today to determine dc dispo Ff up bone biopsy LIkely dc tmr rehab with ff up heme onc as OP and XRT with DR De Anda Vitals Vitals Vital Signs Date Time Temp Pulse Resp B/P (MAP) Pulse Ox O2 Delivery O2 Flow Rate FiO2 03/19/19 09:28 Room Air 03/19/19 07:00 97.9 89 18 118/66 (83) 92 97.9 03/18/19 15:05 2 Physical Exam General: Alert, Oriented X3 Heart: Normal S1, Normal S2 Lungs: Wheezing Abdomen: Soft Extremities: Other (tenderness of the left thigh but no deformity. No palpable mass. Distal neurovascular function is unremarkable.) Skin: Other (the left back over the shoulder blade area shows a 4mm discolored lesion, nearly black in color with irregular borders) Labs LABS Laboratory Tests Test 03/18/19 14:10 03/18/19 16:55 03/18/19 20:52 03/19/19 04:20 Glucose (Fingerstick) 145 mg/dL (70-99) 210 mg/dL (70-99) 296 mg/dL (70-99) White Blood Count 10.8 x10^3/uL (4.0-11.0) Red Blood Count 3.96 x10^6/uL (4.30-5.70) Hemoglobin 14.0 g/dL (13.0-17.5) Hematocrit 40.2 % (39.0-53.0) Mean Corpuscular Volume 101 fL (79-100) Mean Corpuscular Hemoglobin 35 pg (25-35) Mean Corpuscular Hemoglobin Concent 35 g/dL (31-37) Red Cell Distribution Width 12.9 % (11.5-14.5) Platelet Count 88 x10^3/uL (140-400) Neutrophils (%) (Auto) 82 % (31-73) Lymphocytes (%) (Auto) 5 % (24-48) Monocytes (%) (Auto) 13 % (0-9) Eosinophils (%) (Auto) 0 % (0-3) Basophils (%) (Auto) 0 % (0-3) Neutrophils # (Auto) 8.8 x10^3/uL (1.8-7.7) Lymphocytes # (Auto) 0.5 x10^3/uL (1.0-4.8) Monocytes # (Auto) 1.4 x10^3/uL (0.0-1.1) Eosinophils # (Auto) 0.0 x10^3/uL (0.0-0.7) Basophils # (Auto) 0.0 x10^3/uL (0.0-0.2) Sodium Level 138 mmol/L (136-145) Potassium Level 3.4 mmol/L (3.5-5.1) Chloride Level 103 mmol/L (98-107) Carbon Dioxide Level 28 mmol/L (21-32) Anion Gap 7 (6-14) Blood Urea Nitrogen 20 mg/dL (8-26) Creatinine 1.2 mg/dL (0.7-1.3) Estimated GFR (Cockcroft-Gault) 60.4 Glucose Level 171 mg/dL (70-99) Calcium Level 8.7 mg/dL (8.5-10.1) Test 03/19/19 07:32 Glucose (Fingerstick) 123 mg/dL (70-99) Review of Systems Review of Systems left leg pain, all else neg Assessment and Plan Assessmemt and Plan Problems Medical Problems: (1) Lytic bone lesion of left femur Status: Chronic (2) Multiple myeloma Status: Acute (3) Thrombocytopenia Status: Chronic (4) Weakness Status: Acute Comment Review of Relevant I have reviewed the following items terese (where applicable) has been applied. Labs Laboratory Tests Test 03/17/19 11:10 03/17/19 16:35 03/17/19 23:24 03/18/19 07:22 Glucose (Fingerstick) 115 mg/dL (70-99) 181 mg/dL (70-99) 165 mg/dL (70-99) 140 mg/dL (70-99) Test 03/18/19 14:10 03/18/19 16:55 03/18/19 20:52 03/19/19 04:20 Glucose (Fingerstick) 145 mg/dL (70-99) 210 mg/dL (70-99) 296 mg/dL (70-99) White Blood Count 10.8 x10^3/uL (4.0-11.0) Red Blood Count 3.96 x10^6/uL (4.30-5.70) Hemoglobin 14.0 g/dL (13.0-17.5) Hematocrit 40.2 % (39.0-53.0) Mean Corpuscular Volume 101 fL (79-100) Mean Corpuscular Hemoglobin 35 pg (25-35) Mean Corpuscular Hemoglobin Concent 35 g/dL (31-37) Red Cell Distribution Width 12.9 % (11.5-14.5) Platelet Count 88 x10^3/uL (140-400) Neutrophils (%) (Auto) 82 % (31-73) Lymphocytes (%) (Auto) 5 % (24-48) Monocytes (%) (Auto) 13 % (0-9) Eosinophils (%) (Auto) 0 % (0-3) Basophils (%) (Auto) 0 % (0-3) Neutrophils # (Auto) 8.8 x10^3/uL (1.8-7.7) Lymphocytes # (Auto) 0.5 x10^3/uL (1.0-4.8) Monocytes # (Auto) 1.4 x10^3/uL (0.0-1.1) Eosinophils # (Auto) 0.0 x10^3/uL (0.0-0.7) Basophils # (Auto) 0.0 x10^3/uL (0.0-0.2) Sodium Level 138 mmol/L (136-145) Potassium Level 3.4 mmol/L (3.5-5.1) Chloride Level 103 mmol/L (98-107) Carbon Dioxide Level 28 mmol/L (21-32) Anion Gap 7 (6-14) Blood Urea Nitrogen 20 mg/dL (8-26) Creatinine 1.2 mg/dL (0.7-1.3) Estimated GFR (Cockcroft-Gault) 60.4 Glucose Level 171 mg/dL (70-99) Calcium Level 8.7 mg/dL (8.5-10.1) Test 03/19/19 07:32 Glucose (Fingerstick) 123 mg/dL (70-99) Laboratory Tests Test 03/18/19 14:10 03/18/19 16:55 03/18/19 20:52 03/19/19 04:20 Glucose (Fingerstick) 145 mg/dL (70-99) 210 mg/dL (70-99) 296 mg/dL (70-99) White Blood Count 10.8 x10^3/uL (4.0-11.0) Red Blood Count 3.96 x10^6/uL (4.30-5.70) Hemoglobin 14.0 g/dL (13.0-17.5) Hematocrit 40.2 % (39.0-53.0) Mean Corpuscular Volume 101 fL (79-100) Mean Corpuscular Hemoglobin 35 pg (25-35) Mean Corpuscular Hemoglobin Concent 35 g/dL (31-37) Red Cell Distribution Width 12.9 % (11.5-14.5) Platelet Count 88 x10^3/uL (140-400) Neutrophils (%) (Auto) 82 % (31-73) Lymphocytes (%) (Auto) 5 % (24-48) Monocytes (%) (Auto) 13 % (0-9) Eosinophils (%) (Auto) 0 % (0-3) Basophils (%) (Auto) 0 % (0-3) Neutrophils # (Auto) 8.8 x10^3/uL (1.8-7.7) Lymphocytes # (Auto) 0.5 x10^3/uL (1.0-4.8) Monocytes # (Auto) 1.4 x10^3/uL (0.0-1.1) Eosinophils # (Auto) 0.0 x10^3/uL (0.0-0.7) Basophils # (Auto) 0.0 x10^3/uL (0.0-0.2) Sodium Level 138 mmol/L (136-145) Potassium Level 3.4 mmol/L (3.5-5.1) Chloride Level 103 mmol/L (98-107) Carbon Dioxide Level 28 mmol/L (21-32) Anion Gap 7 (6-14) Blood Urea Nitrogen 20 mg/dL (8-26) Creatinine 1.2 mg/dL (0.7-1.3) Estimated GFR (Cockcroft-Gault) 60.4 Glucose Level 171 mg/dL (70-99) Calcium Level 8.7 mg/dL (8.5-10.1) Test 03/19/19 07:32 Glucose (Fingerstick) 123 mg/dL (70-99) Medications Current Medications Prednisone (Prednisone) 60 mg 1X ONCE PO Last administered on 03/13/19at 14:52; Start 03/13/19 at 14:30; Stop 03/13/19 at 14:31; Status DC Ondansetron HCl (Zofran) 4 mg PRN Q8HRS PRN IV NAUSEA/VOMITING; Start 03/13/19 at 16:30; Stop 03/14/19 at 16:29; Status DC Morphine Sulfate (Morphine Sulfate) 4 mg PRN Q2HR PRN IV PAIN; Start 03/13/19 at 16:30; Stop 03/14/19 at 16:29; Status DC Acetaminophen (Tylenol) 650 mg PRN Q4HRS PRN PO FEVER; Start 03/13/19 at 16:30; Stop 03/14/19 at 16:29; Status DC Sodium Chloride 1,000 ml @ 75 mls/hr [id number] IV Last administered on 03/14/19at 05:36; Start 03/13/19 at 17:30; Stop 03/15/19 at 10:58; Status DC Iohexol (Omnipaque 240 Mg/ml) 30 ml 1X ONCE PO Last administered on 03/14/19at 09:30; Start 03/14/19 at 09:30; Stop 03/14/19 at 09:31; Status DC Iohexol (Omnipaque 300 Mg/ml) 75 ml 1X ONCE IV Last administered on 03/14/19at 14:44; Start 03/14/19 at 09:30; Stop 03/14/19 at 09:31; Status DC Info (CONTRAST GIVEN -- Rx MONITORING) 1 each PRN DAILY PRN MC SEE COMMENTS; Start 03/14/19 at 09:30; Stop 03/16/19 at 09:29; Status DC Insulin Human Lispro (HumaLOG) 0-7 UNITS TIDWMEALS SQ ; Start 03/14/19 at 12:00; Stop 03/15/19 at 08:44; Status DC Dextrose (Dextrose 50%-Water Syringe) 12.5 gm PRN Q15MIN PRN IV SEE COMMENTS; Start 03/14/19 at 12:00 Iohexol (Omnipaque 240 Mg/ml) 50 ml STK-MED ONCE .ROUTE ; Start 03/14/19 at 14:25; Stop 03/14/19 at 14:26; Status DC Iohexol (Omnipaque 300 Mg/ml) 100 ml STK-MED ONCE .ROUTE ; Start 03/14/19 at 14:26; Stop 03/14/19 at 14:26; Status DC Insulin Human Lispro (HumaLOG) 0-9 UNITS TIDWMEALS SQ Last administered on 03/17/19at 16:40; Start 03/15/19 at 12:00 Dextrose (Dextrose 50%-Water Syringe) 12.5 gm PRN Q15MIN PRN IV SEE COMMENTS; Start 03/15/19 at 08:45; Status UNV Acetaminophen/ Hydrocodone Bitart (Lortab 5/325) 1 tab PRN Q4HRS PRN PO MODERATE PAIN, SEVERE PAIN Last administered on 03/19/19at 08:28; Start 03/15/19 at 08:45 Morphine Sulfate (Morphine Sulfate) 2 mg PRN Q2HR PRN IV PAIN; Start 03/15/19 at 08:45 Ondansetron HCl (Zofran) 4 mg PRN Q6HRS PRN IVP NAUSEA/VOMITING; Start 03/15/19 at 08:45 Acetaminophen (Tylenol) 500 mg PRN Q6HRS PRN PO MILD PAIN / TEMP; Start 03/15/19 at 08:45 Multivitamins (Thera M Plus) 1 tab DAILY PO Last administered on 03/19/19at 08:28; Start 03/15/19 at 09:00 Metformin HCl (Glucophage) 500 mg BIDWMEALS PO Last administered on 03/19/19at 08:27; Start 03/16/19 at 17:00 Glyburide (Diabeta) 1.25 mg BIDWMEALS PO Last administered on 03/19/19at 08:27; Start 03/16/19 at 08:30 Ondansetron HCl (Zofran) 4 mg PRN Q6HRS PRN IV NAUSEA/VOMITING; Start 03/18/19 at 07:00; Stop 03/19/19 at 06:59; Status DC Fentanyl Citrate (Fentanyl 2ml Vial) 25 mcg PRN Q5MIN PRN IV MILD PAIN 1-3; Start 03/18/19 at 07:00; Stop 03/19/19 at 06:59; Status DC Fentanyl Citrate (Fentanyl 2ml Vial) 50 mcg PRN Q5MIN PRN IV MODERATE TO SEVERE PAIN Last administered on 03/18/19at 17:30; Start 03/18/19 at 07:00; Stop 03/19/19 at 06:59; Status DC Morphine Sulfate (Morphine Sulfate) 1 mg PRN Q10MIN PRN IV SEVERE PAIN 7-10 Last administered on 03/18/19at 14:56; Start 03/18/19 at 07:00; Stop 03/19/19 at 06:59; Status DC Ringer's Solution 1,000 ml @ 30 mls/hr Q24H IV Last administered on 03/18/19at 10:45; Start 03/18/19 at 07:00; Stop 03/18/19 at 18:59; Status DC Lidocaine HCl (Xylocaine-Mpf 1% 2ml Vial) 2 ml PRN 1X PRN ID PRIOR TO IV START; Start 03/18/19 at 07:00; Stop 03/19/19 at 06:59; Status DC Hydromorphone HCl (Dilaudid) 0.5 mg PRN Q10MIN PRN IV SEV PAIN, Second choice; Start 03/18/19 at 07:00; Stop 03/19/19 at 06:59; Status DC Prochlorperazine Edisylate (Compazine) 5 mg PACU PRN PRN IV NAUSEA, MRX1 Last administered on 03/18/19at 14:43; Start 03/18/19 at 07:00; Stop 03/19/19 at 06:59; Status DC Morphine Sulfate 5 mg/Ketorolac Tromethamine 30 mg/Ropivacaine 60 ml/Epinephrine HCl 0.5 mg/Sodium Chloride 100 ml @ 100 mls/hr 1X ONCE INT ART Last administered on 03/18/19at 12:36; Start 03/18/19 at 06:00; Stop 03/18/19 at 06:59; Status DC Midazolam HCl (Versed) 2 mg STK-MED ONCE .ROUTE ; Start 03/17/19 at 13:40; Stop 03/17/19 at 13:40; Status DC Fentanyl Citrate (Fentanyl 2ml Vial) 100 mcg STK-MED ONCE .ROUTE ; Start 03/17/19 at 13:40; Stop 03/17/19 at 13:40; Status DC Lidocaine HCl (Buffered Lidocaine 1%) 3 ml STK-MED ONCE .ROUTE ; Start 03/17/19 at 13:49; Stop 03/17/19 at 13:50; Status DC Lidocaine HCl (Buffered Lidocaine 1%) 3 ml 1X ONCE IJ Last administered on 03/17/19at 14:51; Start 03/17/19 at 14:45; Stop 03/17/19 at 14:46; Status DC Midazolam HCl (Versed) 2 mg 1X ONCE IV Last administered on 03/17/19at 14:52; Start 03/17/19 at 14:45; Stop 03/17/19 at 14:46; Status DC Fentanyl Citrate (Fentanyl 2ml Vial) 100 mcg 1X ONCE IV Last administered on 03/17/19at 14:51; Start 03/17/19 at 14:45; Stop 03/17/19 at 14:46; Status DC Cefazolin Sodium/ Dextrose 50 ml @ 100 mls/hr 1X PREOP PRN IV SEE COMMENTS Last administered on 03/18/19at 11:55; Start 03/18/19 at 06:00 Propofol 20 ml @ As Directed STK-MED ONCE IV ; Start 03/18/19 at 08:59; Stop 03/18/19 at 08:59; Status DC Lidocaine HCl (Lidocaine Pf 2% Vial) 5 ml STK-MED ONCE .ROUTE ; Start 03/18/19 at 08:59; Stop 03/18/19 at 08:59; Status DC Fentanyl Citrate (Fentanyl 2ml Vial) 100 mcg STK-MED ONCE .ROUTE ; Start 03/18/19 at 08:59; Stop 03/18/19 at 08:59; Status DC Ondansetron HCl (Zofran) 4 mg STK-MED ONCE .ROUTE ; Start 03/18/19 at 11:26; Stop 03/18/19 at 11:26; Status DC Dexamethasone Sodium Phosphate (Decadron) 4 mg STK-MED ONCE .ROUTE ; Start 03/18/19 at 11:26; Stop 03/18/19 at 11:26; Status DC Midazolam HCl (Versed) 2 mg STK-MED ONCE .ROUTE ; Start 03/18/19 at 11:46; Stop 03/18/19 at 11:46; Status DC Phenylephrine HCl (PHENYLEPHRINE in 0.9% NACL PF) 1 mg STK-MED ONCE IV ; Start 03/18/19 at 12:12; Stop 03/18/19 at 12:13; Status DC Ephedrine Sulfate (ePHEDrine PF IN SALINE SYRINGE) 50 mg STK-MED ONCE IV ; Start 03/18/19 at 12:22; Stop 03/18/19 at 12:23; Status DC Fentanyl Citrate (Fentanyl 2ml Vial) 100 mcg STK-MED ONCE .ROUTE ; Start 03/18/19 at 13:14; Stop 03/18/19 at 13:15; Status DC Potassium Chloride (Klor-Con) 40 meq 1X ONCE PO Last administered on 03/19/19at 08:28; Start 03/19/19 at 08:30; Stop 03/19/19 at 08:31; Status DC Active Scripts Active Glyburide 1.25 Mg Tablet 1.25 Mg PO BIDWMEALS Glucophage (Metformin Hcl) 500 Mg Tablet 500 Mg PO BIDWMEALS Hydrocodone-Apap 5-325 (Hydrocodone Bit/Acetaminophen) 1 Tab Tablet 1 Tab PO PRN Q4HRS PRN Reported Aleve (Naproxen Sodium) 220 Mg Tablet 220 Mg PO PRN PRN Multi-Vitamin Daily (Multivitamin) 1 Each Tablet 1 Each PO DAILY Aspirin 325 Mg Tablet 325 Mg PO DAILY Vitals/I & O Vital Sign - Last 24 Hours 03/18/19 03/18/19 03/18/19 03/18/19 10:50 14:06 14:06 14:20 Temp 97.5 97.9 97.5 97.9 Pulse 68 107 106 Resp 20 20 20 B/P (MAP) 156/89 132/87 160/78 Pulse Ox 95 100 100 O2 Delivery Room Air Simple Mask Mask Simple Mask O2 Flow Rate 10 10 10 11/09/2903/18/19 03/18/19 03/18/19 14:21 14:30 14:35 14:35 Pulse 110 Resp 20 20 20 16 B/P (MAP) 169/85 Pulse Ox 100 100 100 99 O2 Delivery Simple Mask Simple Mask Simple Mask Nasal Cannula O2 Flow Rate 10.0 10.0 10.0 2 03/18/19 03/18/19 03/18/19 03/18/19 14:38 14:45 14:50 14:56 Pulse 105 Resp 20 20 16 16 B/P (MAP) 157/82 Pulse Ox 100 100 99 98 O2 Delivery Simple Mask Simple Mask Nasal Cannula Nasal Cannula O2 Flow Rate 10.0 10.0 2 2.0 03/18/19 03/18/19 03/18/19 03/18/19 15:05 15:20 15:58 16:05 Temp 97.5 97.5 Pulse 99 99 101 Resp 16 16 16 B/P (MAP) 154/73 149/77 115/71 (86) Pulse Ox 99 98 91 O2 Delivery Nasal Cannula Room Air Room Air O2 Flow Rate 2 03/18/19 03/18/19 03/18/19 03/18/19 16:12 16:27 16:35 17:30 Pulse 101 101 Resp 16 16 B/P (MAP) 124/71 (88) 129/75 (93) Pulse Ox 87 88 O2 Delivery Room Air Room Air 03/18/19 03/18/19 03/18/19 03/18/19 18:00 19:52 20:00 23:20 Temp 97.9 97.6 97.9 97.6 Pulse 102 96 Resp 16 16 B/P (MAP) 104/67 (79) 93/ Pulse Ox 95 92 O2 Delivery Room Air Room Air Room Air Room Air 03/19/19 03/19/19 03/19/19 03/19/19 03:10 07:00 08:28 09:28 Temp 98.8 97.9 98.8 97.9 Pulse 77 89 Resp 18 18 B/P (MAP) 109/57 (74) 118/66 (83) Pulse Ox 93 92 O2 Delivery Room Air Room Air Room Air Room Air Intake and Output 03/18/19 03/18/19 03/19/19 15:00 23:00 07:00 Intake Total 850 ml 30 ml 500 ml Output Total 525 ml 200 ml Balance 850 ml -495 ml 300 ml KATTY PLASENCIA MD Mar 19, 2019 09:45
[2019-03-19 10:44] VITALS: BP 109/52
--- NOTE | 2019-03-19 11:47 | NUR ---
SW following. Discussed with RN. Pt had surgery yesterday. PT/OT ordered for today. SW awaiting discharge planning recommendations.
--- NOTE | 2019-03-19 13:46 | PDOC ---
Provider Note Provider Note 68 yo man with lytic disease lt iliac and lt femur at dx. S/p BMBx 03/17/2019. CBC and Chem ok. Free [place] Light chain elevated 25 Free L[place] Light chain elevated 48.6 IM sandra placement for left femur done 03/18/2019 with medullary bone bx. Impression: Likely multiple myeloma Doing well post op. Path pending from BMBx and femur bx. Plan on post op RT after post op healing to lt femur. Discussed with patient. LISBET CALIX MD Mar 19, 2019 13:46
[2019-03-19 14:33] VITALS: BP 134/72
--- NOTE | 2019-03-19 15:43 | NUR ---
SW following. Discussed with RN and PT. PT recommending home with home health and walker. SW met with pt to discuss discharge planning. Pt reported he has a walker he is getting from a friend or family member and will have them bring it to the hospital. Pt would prefer to have outpatient therapy rather than home health. SW to find outpatient rehab which takes pt's insurance. SW will continue to follow.
[2019-03-19 19:00] VITALS: BP 135/73
[2019-03-19 23:00] VITALS: BP 136/66
[2019-03-20 03:00] VITALS: BP 134/79
--- NOTE | 2019-03-20 04:24 | NUR ---
Pt called and stated "I think my IV came out" upon entering room this RN say blood on sheets, pillow, and pt hand. IV cath was out of R hand. Pt Cath was intact. Pt did not complain of any pain.
[2019-03-20 07:00] VITALS: BP 138/80
[2019-03-20] MEDS: INSULIN LISPRO 300 UNITS/3 ML VIAL. SQ SCH ×3 (08:00→17:00)
[2019-03-20] MEDS: glyBURIDE 1.25 MG TABLET PO SCH ×2 (08:20→17:25)
[2019-03-20] MEDS: metFORMIN 500 MG TABLET PO SCH ×2 (08:20→17:25)
[2019-03-20] MEDS: HYDROcodone/APAP 5/325MG 1 TAB TABLET PO PRN ×3 (08:23→22:31)
[2019-03-20] MEDS: MULTIVITAMIN with MINERAL TABLET. PO SCH (08:23)
--- NOTE | 2019-03-20 08:57 | SNU/HH DC ---
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 Medical Complications: Falls RN For Eval/Treatment: Yes Physical Therapy For: Evalulation/Treatment Occupational Therapy For: Evaluation/Treatment Home Health Aide For: Self-care Pt Meets Homebound Status: Extreme weakness w/ amb. POST DISCHARGE ORDERS: Activity Instructions for Disc: Resume previous activity DIET AFTER DISCHARGE: Regular Wound/Incision Care: Ice to area for comfort CHECKS AFTER DISCHARGE: Comment: anterior iliac FOLLOW-UP: PCP to follow Home Health: ff up DR Umm johnson onc for bone biopsy results; ff up Dr De Anda 1-2 weeks for planned XRT (rad onc) TREATMENT/EQUIPMENT ORDERS: Adaptive Equipment Issued: None CERTIFICATION STATEMENT: Certification Statement: Certification Statement: Based on the above finding, I certify that this patient is confined to the home and needs intermittent custodial care, physical therapy and/or speech therapy, or continues to need occupational therapy.~ This patient is under my care, and I have initiated the establishment of the plan of care.~ This patient will be followed by myself or a community physician who will periodically review the plan of care. Home Meds Active Scripts Glyburide (GLYBURIDE) 1.25 Mg Tablet, 1.25 MG PO BIDWMEALS for dm 2, #60 TAB Prov:KATTY PLASENCIA MD 03/17/19 Metformin Hcl (GLUCOPHAGE) 500 Mg Tablet, 500 MG PO BIDWMEALS for dm 2, #60 TAB Prov:KATTY PLASENCIA MD 03/17/19 Hydrocodone Bit/Acetaminophen (HYDROCODONE-APAP 5-325 ) 1 Tab Tablet, 1 TAB PO PRN Q4HRS PRN for MODERATE PAIN, SEVERE PAIN, #15 TAB Prov:KATTY PLASENCIA MD 03/17/19 Reported Medications Naproxen Sodium (ALEVE) 220 Mg Tablet, 220 MG PO PRN PRN for PAIN, TAB 03/14/19 Multivitamin (MULTI-VITAMIN DAILY) 1 Each Tablet, 1 EACH PO DAILY for SUPPLEMENT, TAB 03/14/19 Aspirin (ASPIRIN) 325 Mg Tablet, 325 MG PO DAILY for SUPPLEMENT, TAB 03/14/19 KATTY PLASENCIA MD Mar 20, 2019 08:57
[2019-03-20 11:00] VITALS: BP 139/71
--- NOTE | 2019-03-20 11:36 | PDOC3 ---
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 (2) Multiple myeloma Status: Acute (3) Thrombocytopenia Status: Chronic (4) Weakness Status: Acute Brief Hospital Course Allergies Allergies Coded Allergies Type Severity Reaction Last Updated Verified No Known Drug Allergies 03/13/19 No Vital Signs Vital Signs Date Time Temp Pulse Resp B/P (MAP) Pulse Ox O2 Delivery O2 Flow Rate FiO2 03/20/19 11:00 98.6 85 18 139/71 (93) 96 Room Air 98.6 Lab Results Laboratory Tests Test 03/18/19 14:10 03/18/19 16:55 03/18/19 20:52 03/19/19 04:20 Glucose (Fingerstick) 145 mg/dL (70-99) 210 mg/dL (70-99) 296 mg/dL (70-99) White Blood Count 10.8 x10^3/uL (4.0-11.0) Red Blood Count 3.96 x10^6/uL (4.30-5.70) Hemoglobin 14.0 g/dL (13.0-17.5) Hematocrit 40.2 % (39.0-53.0) Mean Corpuscular Volume 101 fL (79-100) Mean Corpuscular Hemoglobin 35 pg (25-35) Mean Corpuscular Hemoglobin Concent 35 g/dL (31-37) Red Cell Distribution Width 12.9 % (11.5-14.5) Platelet Count 88 x10^3/uL (140-400) Neutrophils (%) (Auto) 82 % (31-73) Lymphocytes (%) (Auto) 5 % (24-48) Monocytes (%) (Auto) 13 % (0-9) Eosinophils (%) (Auto) 0 % (0-3) Basophils (%) (Auto) 0 % (0-3) Neutrophils # (Auto) 8.8 x10^3/uL (1.8-7.7) Lymphocytes # (Auto) 0.5 x10^3/uL (1.0-4.8) Monocytes # (Auto) 1.4 x10^3/uL (0.0-1.1) Eosinophils # (Auto) 0.0 x10^3/uL (0.0-0.7) Basophils # (Auto) 0.0 x10^3/uL (0.0-0.2) Sodium Level 138 mmol/L (136-145) Potassium Level 3.4 mmol/L (3.5-5.1) Chloride Level 103 mmol/L (98-107) Carbon Dioxide Level 28 mmol/L (21-32) Anion Gap 7 (6-14) Blood Urea Nitrogen 20 mg/dL (8-26) Creatinine 1.2 mg/dL (0.7-1.3) Estimated GFR (Cockcroft-Gault) 60.4 Glucose Level 171 mg/dL (70-99) Calcium Level 8.7 mg/dL (8.5-10.1) Test 03/19/19 07:32 03/19/19 11:31 03/19/19 16:31 03/19/19 20:27 Glucose (Fingerstick) 123 mg/dL (70-99) 111 mg/dL (70-99) 72 mg/dL (70-99) 106 mg/dL (70-99) Test 03/20/19 07:48 03/20/19 10:53 Glucose (Fingerstick) 97 mg/dL (70-99) 113 mg/dL (70-99) Laboratory Tests Test 03/19/19 16:31 03/19/19 20:27 03/20/19 07:48 03/20/19 10:53 Glucose (Fingerstick) 72 mg/dL (70-99) 106 mg/dL (70-99) 97 mg/dL (70-99) 113 mg/dL (70-99) Brief Hospital Course Mr. Kyle is a 68 old [sex] who presented with painful rt leg and on imaging was found to have a lytic bone lesion concerned for MM with mets. All new dx. COmanaged with heme onc and underwent biopsy of that bone 03/18, and as of dc date 03/20, no path read yet, HE underwent IM nailing of that same leg to help his pain and mobility and that was uncomplicated, HH was rec by PT< he opts for Outpt pT and that is fine. MEdically, I dxd him with DM 2 bec of hgba1c 8 and high BS< HE is well controlled on OHA and i have provided rx, HE is also planned for XRT by rad onc on that same leg 1-2 weeks post OR, will allow him recovery for now post IM nailing COnsults: heme onc, ortho, rad onc Proc; BOne biopsy 03/18 IM nailing 03/20 dc 35 Discharge Information Condition at Discharge: Improved, Stable Disposition/Orders: D/C to Home w/ HH, Other (OP pT) Scheduled Aspirin (Aspirin) 325 Mg Tablet, 325 MG PO DAILY for SUPPLEMENT, (Reported) Entered as Reported by: TINO ZAZUETA on 03/14/192058 Last Action: HELD on 03/15/19842 by KATTY PLASENCIA Glyburide (Glyburide) 1.25 Mg Tablet, 1.25 MG PO BIDWMEALS for dm 2, #60 Prescribed by: KATTY PLASENCIA on 03/17/19738 Metformin Hcl (Glucophage) 500 Mg Tablet, 500 MG PO BIDWMEALS for dm 2, #60 Prescribed by: KATTY PLASENCIA on 03/17/19738 Multivitamin (Multi-Vitamin Daily) 1 Each Tablet, 1 EACH PO DAILY for SUPPLEMENT, (Reported) Entered as Reported by: TINO ZAZUETA on 03/14/192099 Last Action: Converted on 03/15/19842 by KATTY PLASENCIA Scheduled PRN Hydrocodone Bit/Acetaminophen (Hydrocodone-Apap 5-325 ) 1 Tab Tablet, 1 TAB PO PRN Q4HRS PRN for MODERATE PAIN, SEVERE PAIN, #15 Prescribed by: KATTY PLASENCIA on 03/17/19738 Naproxen Sodium (Aleve) 220 Mg Tablet, 220 MG PO PRN PRN for PAIN, (Reported) Entered as Reported by: TINO ZAZUETA on 03/14/192099 Last Action: HELD on 03/15/19842 by KATTY MORAN MD Mar 20, 2019 11:36
--- NOTE | 2019-03-20 14:43 | PDOC ---
PROGRESS NOTES Subjective Subjective HPI -f/u of Bone lesions ROS - no CP Objective Objective Vital Signs Date Time Temp Pulse Resp B/P (MAP) Pulse Ox O2 Delivery O2 Flow Rate FiO2 03/20/19 11:00 98.6 85 18 139/71 (93) 96 Room Air 98.6 03/18/19 15:05 2 Intake and Output 03/20/19 07:00 Intake Total 600 ml Output Total 2100 ml Balance -1500 ml Intake Oral 600 ml Output Urine Total 2100 ml # Voids 2 Physical Exam Heart: Normal S1, Normal S2 General: Alert, Oriented X3 Lungs: Clear to auscultation Neuro: Normal speech Psych/Mental Status: Mental status NL Assessment Assessment Problems Medical Problems: (1) 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 Bone lesions clinically consistent with bone metastasis. X-rays of the hip and pelvis on 03/13/2019 revealed lytic lesions of the proximal left femur and left iliac bone consistent with osseous metastatic disease or multiple myeloma. The lesion within the proximal left femoral shaft occupies the entire width of the shaft and this may predispose to pathologic fracture. Hence, I consulted Orthopedic Surgery for possible prophylactic surgery. I also consulted Interventional Radiology for biopsy. I consulted Radiation Oncology in preparation for possible need for palliative radiation therapy subsequently. Normal serum protein electrophoresis and immunofixation studies and serum free light chains ratio. CT chest, abdomen and pelvis 03/14/19: There is a lucent lesion of the inferior anterior aspect of the L4 vertebral body. A possible early lytic lesion of the right side of the L2 vertebral body is seen. There is a small lucent lesion of the posterior medial aspect of left Iliac bone. There are 2 lytic lesions which are expansile with cortical erosion of the left iliac bone more anteriorly within the left iliac crest and then more inferiorly. There are 2 small lytic lesions of the right ischial bone just below the acetabulum. A small lytic lesion of the subtrochanteric area of the proximal left femur is seen. Bone scan 03/14/19: Osseous metastatic disease of the proximal shaft of the left femur and the left 11th rib. Skeletal survey: 03/15/19: Agressive permeative lytic trabecular bone lesion of the proximal left femoral shaft concerning for lytic bone metastasis or plasmacytoma. Given lytic lesions elsewhere, a sarcoma would be less likely. Possible small lytic lesion of the C5 vertebral body. Left iliac crest lytic lesions again demonstrated. Findings likely represent lytic metastatic disease or multiple myeloma. PSA normal at 1.25 on 03/14/2019. Lytic lesions on CT suggests multiple myeloma - SPEP unremarkable. s/p bone bx 03/17/19. lytic lesion left ilium. Prelim results indicate carcinoma f/u with me in 1-2 weeks. 2. Thrombocytopenia, mild. Hemoglobin and WBC is normal, but the platelets are 112 on 03/13/2019. Plt now 88. I will continue to monitor. No bleeding. 3. s/p Prophylactic treatment (intramedullary nail) femur, left, 03/18/19. Comment Review of Relevant I have reviewed the following items terese (where applicable) has been applied. Labs Laboratory Tests Test 03/18/19 16:55 03/18/19 20:52 03/19/19 04:20 03/19/19 07:32 Glucose (Fingerstick) 210 mg/dL (70-99) 296 mg/dL (70-99) 123 mg/dL (70-99) White Blood Count 10.8 x10^3/uL (4.0-11.0) Red Blood Count 3.96 x10^6/uL (4.30-5.70) Hemoglobin 14.0 g/dL (13.0-17.5) Hematocrit 40.2 % (39.0-53.0) Mean Corpuscular Volume 101 fL (79-100) Mean Corpuscular Hemoglobin 35 pg (25-35) Mean Corpuscular Hemoglobin Concent 35 g/dL (31-37) Red Cell Distribution Width 12.9 % (11.5-14.5) Platelet Count 88 x10^3/uL (140-400) Neutrophils (%) (Auto) 82 % (31-73) Lymphocytes (%) (Auto) 5 % (24-48) Monocytes (%) (Auto) 13 % (0-9) Eosinophils (%) (Auto) 0 % (0-3) Basophils (%) (Auto) 0 % (0-3) Neutrophils # (Auto) 8.8 x10^3/uL (1.8-7.7) Lymphocytes # (Auto) 0.5 x10^3/uL (1.0-4.8) Monocytes # (Auto) 1.4 x10^3/uL (0.0-1.1) Eosinophils # (Auto) 0.0 x10^3/uL (0.0-0.7) Basophils # (Auto) 0.0 x10^3/uL (0.0-0.2) Sodium Level 138 mmol/L (136-145) Potassium Level 3.4 mmol/L (3.5-5.1) Chloride Level 103 mmol/L (98-107) Carbon Dioxide Level 28 mmol/L (21-32) Anion Gap 7 (6-14) Blood Urea Nitrogen 20 mg/dL (8-26) Creatinine 1.2 mg/dL (0.7-1.3) Estimated GFR (Cockcroft-Gault) 60.4 Glucose Level 171 mg/dL (70-99) Calcium Level 8.7 mg/dL (8.5-10.1) Test 03/19/19 11:31 03/19/19 16:31 03/19/19 20:27 03/20/19 07:48 Glucose (Fingerstick) 111 mg/dL (70-99) 72 mg/dL (70-99) 106 mg/dL (70-99) 97 mg/dL (70-99) Test 03/20/19 10:53 Glucose (Fingerstick) 113 mg/dL (70-99) Laboratory Tests Test 03/19/19 16:31 03/19/19 20:27 03/20/19 07:48 03/20/19 10:53 Glucose (Fingerstick) 72 mg/dL (70-99) 106 mg/dL (70-99) 97 mg/dL (70-99) 113 mg/dL (70-99) Medications Current Medications Prednisone (Prednisone) 60 mg 1X ONCE PO Last administered on 03/13/19at 14:52; Start 03/13/19 at 14:30; Stop 03/13/19 at 14:31; Status DC Ondansetron HCl (Zofran) 4 mg PRN Q8HRS PRN IV NAUSEA/VOMITING; Start 03/13/19 at 16:30; Stop 03/14/19 at 16:29; Status DC Morphine Sulfate (Morphine Sulfate) 4 mg PRN Q2HR PRN IV PAIN; Start 03/13/19 at 16:30; Stop 03/14/19 at 16:29; Status DC Acetaminophen (Tylenol) 650 mg PRN Q4HRS PRN PO FEVER; Start 03/13/19 at 16:30; Stop 03/14/19 at 16:29; Status DC Sodium Chloride 1,000 ml @ 75 mls/hr [id number] IV Last administered on 03/14/19at 05:36; Start 03/13/19 at 17:30; Stop 03/15/19 at 10:58; Status DC Iohexol (Omnipaque 240 Mg/ml) 30 ml 1X ONCE PO Last administered on 03/14/19at 09:30; Start 03/14/19 at 09:30; Stop 03/14/19 at 09:31; Status DC Iohexol (Omnipaque 300 Mg/ml) 75 ml 1X ONCE IV Last administered on 03/14/19at 14:44; Start 03/14/19 at 09:30; Stop 03/14/19 at 09:31; Status DC Info (CONTRAST GIVEN -- Rx MONITORING) 1 each PRN DAILY PRN MC SEE COMMENTS; Start 03/14/19 at 09:30; Stop 03/16/19 at 09:29; Status DC Insulin Human Lispro (HumaLOG) 0-7 UNITS TIDWMEALS SQ ; Start 03/14/19 at 12:00; Stop 03/15/19 at 08:44; Status DC Dextrose (Dextrose 50%-Water Syringe) 12.5 gm PRN Q15MIN PRN IV SEE COMMENTS; Start 03/14/19 at 12:00 Iohexol (Omnipaque 240 Mg/ml) 50 ml STK-MED ONCE .ROUTE ; Start 03/14/19 at 14:25; Stop 03/14/19 at 14:26; Status DC Iohexol (Omnipaque 300 Mg/ml) 100 ml STK-MED ONCE .ROUTE ; Start 03/14/19 at 14:26; Stop 03/14/19 at 14:26; Status DC Insulin Human Lispro (HumaLOG) 0-9 UNITS TIDWMEALS SQ Last administered on 03/17/19at 16:40; Start 03/15/19 at 12:00 Dextrose (Dextrose 50%-Water Syringe) 12.5 gm PRN Q15MIN PRN IV SEE COMMENTS; Start 03/15/19 at 08:45; Status UNV Acetaminophen/ Hydrocodone Bitart (Lortab 5/325) 1 tab PRN Q4HRS PRN PO MODERATE PAIN, SEVERE PAIN Last administered on 03/20/19at 08:23; Start 03/15/19 at 08:45 Morphine Sulfate (Morphine Sulfate) 2 mg PRN Q2HR PRN IV PAIN; Start 03/15/19 at 08:45 Ondansetron HCl (Zofran) 4 mg PRN Q6HRS PRN IVP NAUSEA/VOMITING; Start 03/15/19 at 08:45 Acetaminophen (Tylenol) 500 mg PRN Q6HRS PRN PO MILD PAIN / TEMP; Start 03/15/19 at 08:45 Multivitamins (Thera M Plus) 1 tab DAILY PO Last administered on 03/20/19at 08:23; Start 03/15/19 at 09:00 Metformin HCl (Glucophage) 500 mg BIDWMEALS PO Last administered on 03/20/19at 08:20; Start 03/16/19 at 17:00 Glyburide (Diabeta) 1.25 mg BIDWMEALS PO Last administered on 03/20/19 08:20; Start 03/16/19 at 08:30 Ondansetron HCl (Zofran) 4 mg PRN Q6HRS PRN IV NAUSEA/VOMITING; Start 03/18/19 at 07:00; Stop 03/19/19 at 06:59; Status DC Fentanyl Citrate (Fentanyl 2ml Vial) 25 mcg PRN Q5MIN PRN IV MILD PAIN 1-3; Start 03/18/19 at 07:00; Stop 03/19/19 at 06:59; Status DC Fentanyl Citrate (Fentanyl 2ml Vial) 50 mcg PRN Q5MIN PRN IV MODERATE TO SEVERE PAIN Last administered on 03/18/19at 17:30; Start 03/18/19 at 07:00; Stop 03/19/19 at 06:59; Status DC Morphine Sulfate (Morphine Sulfate) 1 mg PRN Q10MIN PRN IV SEVERE PAIN 7-10 Last administered on 03/18/19at 14:56; Start 03/18/19 at 07:00; Stop 03/19/19 at 06:59; Status DC Ringer's Solution 1,000 ml @ 30 mls/hr Q24H IV Last administered on 03/18/19at 10:45; Start 03/18/19 at 07:00; Stop 03/18/19 at 18:59; Status DC Lidocaine HCl (Xylocaine-Mpf 1% 2ml Vial) 2 ml PRN 1X PRN ID PRIOR TO IV START; Start 03/18/19 at 07:00; Stop 03/19/19 at 06:59; Status DC Hydromorphone HCl (Dilaudid) 0.5 mg PRN Q10MIN PRN IV SEV PAIN, Second choice; Start 03/18/19 at 07:00; Stop 03/19/19 at 06:59; Status DC Prochlorperazine Edisylate (Compazine) 5 mg PACU PRN PRN IV NAUSEA, MRX1 Last administered on 03/18/19at 14:43; Start 03/18/19 at 07:00; Stop 03/19/19 at 06:59; Status DC Morphine Sulfate 5 mg/Ketorolac Tromethamine 30 mg/Ropivacaine 60 ml/Epinephrine HCl 0.5 mg/Sodium Chloride 100 ml @ 100 mls/hr 1X ONCE INT ART Last administered on 03/18/19at 12:36; Start 03/18/19 at 06:00; Stop 03/18/19 at 06:59; Status DC Midazolam HCl (Versed) 2 mg STK-MED ONCE .ROUTE ; Start 03/17/19 at 13:40; Stop 03/17/19 at 13:40; Status DC Fentanyl Citrate (Fentanyl 2ml Vial) 100 mcg STK-MED ONCE .ROUTE ; Start 03/17/19 at 13:40; Stop 03/17/19 at 13:40; Status DC Lidocaine HCl (Buffered Lidocaine 1%) 3 ml STK-MED ONCE .ROUTE ; Start 03/17/19 at 13:49; Stop 03/17/19 at 13:50; Status DC Lidocaine HCl (Buffered Lidocaine 1%) 3 ml 1X ONCE IJ Last administered on 03/17/19at 14:51; Start 03/17/19 at 14:45; Stop 03/17/19 at 14:46; Status DC Midazolam HCl (Versed) 2 mg 1X ONCE IV Last administered on 03/17/19at 14:52; Start 03/17/19 at 14:45; Stop 03/17/19 at 14:46; Status DC Fentanyl Citrate (Fentanyl 2ml Vial) 100 mcg 1X ONCE IV Last administered on 03/17/19at 14:51; Start 03/17/19 at 14:45; Stop 03/17/19 at 14:46; Status DC Cefazolin Sodium/ Dextrose 50 ml @ 100 mls/hr 1X PREOP PRN IV SEE COMMENTS Last administered on 03/18/19at 11:55; Start 03/18/19 at 06:00; Stop 03/19/19 at 14:01; Status DC Propofol 20 ml @ As Directed STK-MED ONCE IV ; Start 03/18/19 at 08:59; Stop 03/18/19 at 08:59; Status DC Lidocaine HCl (Lidocaine Pf 2% Vial) 5 ml STK-MED ONCE .ROUTE ; Start 03/18/19 at 08:59; Stop 03/18/19 at 08:59; Status DC Fentanyl Citrate (Fentanyl 2ml Vial) 100 mcg STK-MED ONCE .ROUTE ; Start 03/18/19 at 08:59; Stop 03/18/19 at 08:59; Status DC Ondansetron HCl (Zofran) 4 mg STK-MED ONCE .ROUTE ; Start 03/18/19 at 11:26; Stop 03/18/19 at 11:26; Status DC Dexamethasone Sodium Phosphate (Decadron) 4 mg STK-MED ONCE .ROUTE ; Start 03/18/19 at 11:26; Stop 03/18/19 at 11:26; Status DC Midazolam HCl (Versed) 2 mg STK-MED ONCE .ROUTE ; Start 03/18/19 at 11:46; Stop 03/18/19 at 11:46; Status DC Phenylephrine HCl (PHENYLEPHRINE in 0.9% NACL PF) 1 mg STK-MED ONCE IV ; Start 03/18/19 at 12:12; Stop 03/18/19 at 12:13; Status DC Ephedrine Sulfate (ePHEDrine PF IN SALINE SYRINGE) 50 mg STK-MED ONCE IV ; Start 03/18/19 at 12:22; Stop 03/18/19 at 12:23; Status DC Fentanyl Citrate (Fentanyl 2ml Vial) 100 mcg STK-MED ONCE .ROUTE ; Start 03/18/19 at 13:14; Stop 03/18/19 at 13:15; Status DC Potassium Chloride (Klor-Con) 40 meq 1X ONCE PO Last administered on 03/19/19at 08:28; Start 03/19/19 at 08:30; Stop 03/19/19 at 08:31; Status DC Active Scripts Active Glyburide 1.25 Mg Tablet 1.25 Mg PO BIDWMEALS Glucophage (Metformin Hcl) 500 Mg Tablet 500 Mg PO BIDWMEALS Hydrocodone-Apap 5-325 (Hydrocodone Bit/Acetaminophen) 1 Tab Tablet 1 Tab PO PRN Q4HRS PRN Reported Aleve (Naproxen Sodium) 220 Mg Tablet 220 Mg PO PRN PRN Multi-Vitamin Daily (Multivitamin) 1 Each Tablet 1 Each PO DAILY Aspirin 325 Mg Tablet 325 Mg PO DAILY Vitals/I & O Vital Sign - Last 24 Hours 03/19/19 03/19/19 03/19/19 03/19/19 19:00 20:08 21:21 23:00 Temp 98.1 98.0 98.1 98.0 Pulse 79 75 Resp 18 16 18 B/P (MAP) 135/73 (93) 136/66 (89) Pulse Ox 94 91 O2 Delivery Room Air Room Air Room Air Room Air 03/19/19 03/20/19 03/20/19 03/20/19 23:23 03:00 07:00 08:00 Temp 98.2 98.0 98.2 98.0 Pulse 82 73 Resp 16 18 18 B/P (MAP) 134/79 (97) 138/80 (99) Pulse Ox 94 95 O2 Delivery Room Air Room Air Room Air Room Air 03/20/19 03/20/19 03/20/19 08:23 09:25 11:00 Temp 98.6 98.6 Pulse 85 Resp 16 16 18 B/P (MAP) 139/71 (93) Pulse Ox 96 O2 Delivery Room Air Room Air Room Air Intake and Output 03/19/19 03/19/19 03/20/19 15:00 23:00 07:00 Intake Total 300 ml 300 ml Output Total 600 ml 1500 ml Balance 300 ml -300 ml -1500 ml ESTHER BOURGEOIS MD Mar 20, 2019 14:43
[2019-03-20 15:00] VITALS: BP 152/73
--- NOTE | 2019-03-20 16:03 | NUR ---
SW following for discharge planning. Discussed with RN, pt therapy order faxed to [facility] outpatient therapy ([id number]). Therapy will contact pt to set up therapy time. Pt is getting a walker from a friend or family member. RN notified.
--- NOTE | 2019-03-20 17:11 | PDOC ---
PROGRESS NOTES Subjective Subjective some femur pain, but better than preop Objective Vital Signs Vital Signs Date Time Temp Pulse Resp B/P (MAP) Pulse Ox O2 Delivery O2 Flow Rate FiO2 03/20/19 15:00 98.2 95 18 152/73 (99) 97 Room Air 98.2 03/18/19 15:05 2 Physical Exam dressings dry, thigh and calf soft, NVI, Chelsy's neg Labs Laboratory Tests Test 03/18/19 20:52 03/19/19 04:20 03/19/19 07:32 03/19/19 11:31 Glucose (Fingerstick) 296 mg/dL (70-99) 123 mg/dL (70-99) 111 mg/dL (70-99) White Blood Count 10.8 x10^3/uL (4.0-11.0) Red Blood Count 3.96 x10^6/uL (4.30-5.70) Hemoglobin 14.0 g/dL (13.0-17.5) Hematocrit 40.2 % (39.0-53.0) Mean Corpuscular Volume 101 fL (79-100) Mean Corpuscular Hemoglobin 35 pg (25-35) Mean Corpuscular Hemoglobin Concent 35 g/dL (31-37) Red Cell Distribution Width 12.9 % (11.5-14.5) Platelet Count 88 x10^3/uL (140-400) Neutrophils (%) (Auto) 82 % (31-73) Lymphocytes (%) (Auto) 5 % (24-48) Monocytes (%) (Auto) 13 % (0-9) Eosinophils (%) (Auto) 0 % (0-3) Basophils (%) (Auto) 0 % (0-3) Neutrophils # (Auto) 8.8 x10^3/uL (1.8-7.7) Lymphocytes # (Auto) 0.5 x10^3/uL (1.0-4.8) Monocytes # (Auto) 1.4 x10^3/uL (0.0-1.1) Eosinophils # (Auto) 0.0 x10^3/uL (0.0-0.7) Basophils # (Auto) 0.0 x10^3/uL (0.0-0.2) Sodium Level 138 mmol/L (136-145) Potassium Level 3.4 mmol/L (3.5-5.1) Chloride Level 103 mmol/L (98-107) Carbon Dioxide Level 28 mmol/L (21-32) Anion Gap 7 (6-14) Blood Urea Nitrogen 20 mg/dL (8-26) Creatinine 1.2 mg/dL (0.7-1.3) Estimated GFR (Cockcroft-Gault) 60.4 Glucose Level 171 mg/dL (70-99) Calcium Level 8.7 mg/dL (8.5-10.1) Test 03/19/19 16:31 03/19/19 20:27 03/20/19 07:48 03/20/19 10:53 Glucose (Fingerstick) 72 mg/dL (70-99) 106 mg/dL (70-99) 97 mg/dL (70-99) 113 mg/dL (70-99) Laboratory Tests Test 03/19/19 20:27 03/20/19 07:48 03/20/19 10:53 Glucose (Fingerstick) 106 mg/dL (70-99) 97 mg/dL (70-99) 113 mg/dL (70-99) Assessment Assessment POD#2 after proph nail for mets left femur Plan Plan of Care May WBAT. DVT prophylaxis. HOA EARLY MD Mar 20, 2019 17:11
[2019-03-20] MEDS ORDERED: ANTI-COAG MONITOR BY PHARMACY. MC PRN (17:15)
[2019-03-20] MEDS ORDERED: RIVAROXABAN 10 MG TABLET. PO SCH (17:15)
[2019-03-20 19:25] VITALS: BP 160/82
[2019-03-20 23:05] VITALS: BP 150/77
[2019-03-21 03:08] VITALS: BP 138/72
[2019-03-21] MEDS: HYDROcodone/APAP 5/325MG 1 TAB TABLET PO PRN ×3 (05:25→14:39)
[2019-03-21 07:00] VITALS: BP 137/85
[2019-03-21] MEDS: INSULIN LISPRO 300 UNITS/3 ML VIAL. SQ SCH ×2 (07:58→12:00)
[2019-03-21] MEDS ORDERED: RIVA10TA PO (08:22)
[2019-03-21] MEDS: MULTIVITAMIN with MINERAL TABLET. PO SCH (08:27)
[2019-03-21] MEDS: metFORMIN 500 MG TABLET PO SCH (08:27)
[2019-03-21] MEDS: glyBURIDE 1.25 MG TABLET PO SCH (08:27)
--- NOTE | 2019-03-21 09:46 | PDOC ---
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
--- NOTE | 2019-03-21 10:42 | NUR ---
SW following. Discussed with RN, outpatient therapy referral sent, outpatient therapy will contact pt to arrange a time. Pt to have walker provided by acquaintance. No SW needs. Anticipate pt will discharge home today.
[2019-03-21 11:00] VITALS: BP 130/70
--- NOTE | 2019-03-21 12:46 | PDOC ---
PROGRESS NOTES Subjective Subjective HPI - f/u of Bone lesions clinically consistent with bone metastasis ROS - no CP Objective Objective Vital Signs Date Time Temp Pulse Resp B/P (MAP) Pulse Ox O2 Delivery O2 Flow Rate FiO2 03/21/19 11:00 98.1 74 18 130/70 (90) 97 Room Air 98.1 03/18/19 15:05 2 Intake and Output 03/21/19 07:00 Intake Total 780 ml Output Total 700 ml Balance 80 ml Intake Oral 780 ml Output Urine Total 700 ml Physical Exam Heart: Normal S1, Normal S2 General: Alert, Oriented X3 Lungs: Clear to auscultation Neuro: Normal speech Psych/Mental Status: Mental status NL Assessment Assessment Problems Medical Problems: (1) 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 Bone lesions clinically consistent with bone metastasis. X-rays of the hip and pelvis on 03/13/2019 revealed lytic lesions of the proximal left femur and left iliac bone consistent with osseous metastatic disease or multiple myeloma. The lesion within the proximal left femoral shaft occupies the entire width of the shaft and this may predispose to pathologic fracture. Hence, I consulted Orthopedic Surgery for possible prophylactic surgery. I also consulted Interventional Radiology for biopsy. I consulted Radiation Oncology in preparation for possible need for palliative radiation therapy subsequently. Normal serum protein electrophoresis and immunofixation studies and serum free light chains ratio. CT chest, abdomen and pelvis 03/14/19: There is a lucent lesion of the inferior anterior aspect of the L4 vertebral body. A possible early lytic lesion of the right side of the L2 vertebral body is seen. There is a small lucent lesion of the posterior medial aspect of left Iliac bone. There are 2 lytic lesions which are expansile with cortical erosion of the left iliac bone more anteriorly within the left iliac crest and then more inferiorly. There are 2 small lytic lesions of the right ischial bone just below the acetabulum. A small lytic lesion of the subtrochanteric area of the proximal left femur is seen. Bone scan 03/14/19: Osseous metastatic disease of the proximal shaft of the left femur and the left 11th rib. Skeletal survey: 03/15/19: Agressive permeative lytic trabecular bone lesion of the proximal left femoral shaft concerning for lytic bone metastasis or plasmacytoma. Given lytic lesions elsewhere, a sarcoma would be less likely. Possible small lytic lesion of the C5 vertebral body. Left iliac crest lytic lesions again demonstrated. Findings likely represent lytic metastatic disease or multiple myeloma. PSA normal at 1.25 on 03/14/2019. Lytic lesions on CT suggests multiple myeloma - SPEP unremarkable. s/p bone bx 03/17/19. lytic lesion left ilium. Prelim results indicate carcinoma. I d/w Dr De Anda, and RN f/u with me in 1-2 weeks. 2. Thrombocytopenia, mild. Hemoglobin and WBC is normal, but the platelets are 112 on 03/13/2019. Plt now 88. I will continue to monitor. No bleeding. 3. s/p Prophylactic treatment (intramedullary nail) femur, left, 03/18/19. Comment Review of Relevant I have reviewed the following items terese (where applicable) has been applied. Labs Laboratory Tests Test 03/19/19 16:31 03/19/19 20:27 03/20/19 07:48 03/20/19 10:53 Glucose (Fingerstick) 72 mg/dL (70-99) 106 mg/dL (70-99) 97 mg/dL (70-99) 113 mg/dL (70-99) Test 03/20/19 17:04 03/20/19 21:07 03/21/19 07:57 03/21/19 12:00 Glucose (Fingerstick) 101 mg/dL (70-99) 104 mg/dL (70-99) 96 mg/dL (70-99) 141 mg/dL (70-99) Laboratory Tests Test 03/20/19 17:04 03/20/19 21:07 03/21/19 07:57 03/21/19 12:00 Glucose (Fingerstick) 101 mg/dL (70-99) 104 mg/dL (70-99) 96 mg/dL (70-99) 141 mg/dL (70-99) Medications Current Medications Prednisone (Prednisone) 60 mg 1X ONCE PO Last administered on 03/13/19at 14:52; Start 03/13/19 at 14:30; Stop 03/13/19 at 14:31; Status DC Ondansetron HCl (Zofran) 4 mg PRN Q8HRS PRN IV NAUSEA/VOMITING; Start 03/13/19 at 16:30; Stop 03/14/19 at 16:29; Status DC Morphine Sulfate (Morphine Sulfate) 4 mg PRN Q2HR PRN IV PAIN; Start 03/13/19 at 16:30; Stop 03/14/19 at 16:29; Status DC Acetaminophen (Tylenol) 650 mg PRN Q4HRS PRN PO FEVER; Start 03/13/19 at 16:30; Stop 03/14/19 at 16:29; Status DC Sodium Chloride 1,000 ml @ 75 mls/hr [id number] IV Last administered on 03/14/19at 05:36; Start 03/13/19 at 17:30; Stop 03/15/19 at 10:58; Status DC Iohexol (Omnipaque 240 Mg/ml) 30 ml 1X ONCE PO Last administered on 03/14/19at 09:30; Start 03/14/19 at 09:30; Stop 03/14/19 at 09:31; Status DC Iohexol (Omnipaque 300 Mg/ml) 75 ml 1X ONCE IV Last administered on 03/14/19at 14:44; Start 03/14/19 at 09:30; Stop 03/14/19 at 09:31; Status DC Info (CONTRAST GIVEN -- Rx MONITORING) 1 each PRN DAILY PRN MC SEE COMMENTS; Start 03/14/19 at 09:30; Stop 03/16/19 at 09:29; Status DC Insulin Human Lispro (HumaLOG) 0-7 UNITS TIDWMEALS SQ ; Start 03/14/19 at 12:00; Stop 03/15/19 at 08:44; Status DC Dextrose (Dextrose 50%-Water Syringe) 12.5 gm PRN Q15MIN PRN IV SEE COMMENTS; Start 03/14/19 at 12:00 Iohexol (Omnipaque 240 Mg/ml) 50 ml STK-MED ONCE .ROUTE ; Start 03/14/19 at 14:25; Stop 03/14/19 at 14:26; Status DC Iohexol (Omnipaque 300 Mg/ml) 100 ml STK-MED ONCE .ROUTE ; Start 03/14/19 at 14:26; Stop 03/14/19 at 14:26; Status DC Insulin Human Lispro (HumaLOG) 0-9 UNITS TIDWMEALS SQ Last administered on 03/17/19at 16:40; Start 03/15/19 at 12:00 Dextrose (Dextrose 50%-Water Syringe) 12.5 gm PRN Q15MIN PRN IV SEE COMMENTS; Start 03/15/19 at 08:45; Status UNV Acetaminophen/ Hydrocodone Bitart (Lortab 5/325) 1 tab PRN Q4HRS PRN PO MODERATE PAIN, SEVERE PAIN Last administered on 03/21/19at 09:23; Start 03/15/19 at 08:45 Morphine Sulfate (Morphine Sulfate) 2 mg PRN Q2HR PRN IV PAIN; Start 03/15/19 at 08:45 Ondansetron HCl (Zofran) 4 mg PRN Q6HRS PRN IVP NAUSEA/VOMITING; Start 03/15/19 at 08:45 Acetaminophen (Tylenol) 500 mg PRN Q6HRS PRN PO MILD PAIN / TEMP; Start 03/15/19 at 08:45 Multivitamins (Thera M Plus) 1 tab DAILY PO Last administered on 03/21/19 08:27; Start 03/15/19 at 09:00 Metformin HCl (Glucophage) 500 mg BIDWMEALS PO Last administered on 03/21/19 08:27; Start 03/16/19 at 17:00 Glyburide (Diabeta) 1.25 mg BIDWMEALS PO Last administered on 03/21/19 08:27; Start 03/16/19 at 08:30 Ondansetron HCl (Zofran) 4 mg PRN Q6HRS PRN IV NAUSEA/VOMITING; Start 03/18/19 at 07:00; Stop 03/19/19 at 06:59; Status DC Fentanyl Citrate (Fentanyl 2ml Vial) 25 mcg PRN Q5MIN PRN IV MILD PAIN 1-3; Start 03/18/19 at 07:00; Stop 03/19/19 at 06:59; Status DC Fentanyl Citrate (Fentanyl 2ml Vial) 50 mcg PRN Q5MIN PRN IV MODERATE TO SEVERE PAIN Last administered on 03/18/19at 17:30; Start 03/18/19 at 07:00; Stop 03/19/19 at 06:59; Status DC Morphine Sulfate (Morphine Sulfate) 1 mg PRN Q10MIN PRN IV SEVERE PAIN 7-10 Last administered on 03/18/19at 14:56; Start 03/18/19 at 07:00; Stop 03/19/19 at 06:59; Status DC Ringer's Solution 1,000 ml @ 30 mls/hr Q24H IV Last administered on 03/18/19at 10:45; Start 03/18/19 at 07:00; Stop 03/18/19 at 18:59; Status DC Lidocaine HCl (Xylocaine-Mpf 1% 2ml Vial) 2 ml PRN 1X PRN ID PRIOR TO IV START; Start 03/18/19 at 07:00; Stop 03/19/19 at 06:59; Status DC Hydromorphone HCl (Dilaudid) 0.5 mg PRN Q10MIN PRN IV SEV PAIN, Second choice; Start 03/18/19 at 07:00; Stop 03/19/19 at 06:59; Status DC Prochlorperazine Edisylate (Compazine) 5 mg PACU PRN PRN IV NAUSEA, MRX1 Last administered on 03/18/19at 14:43; Start 03/18/19 at 07:00; Stop 03/19/19 at 06:59; Status DC Morphine Sulfate 5 mg/Ketorolac Tromethamine 30 mg/Ropivacaine 60 ml/Epinephrine HCl 0.5 mg/Sodium Chloride 100 ml @ 100 mls/hr 1X ONCE INT ART Last administered on 03/18/19at 12:36; Start 03/18/19 at 06:00; Stop 03/18/19 at 06:59; Status DC Midazolam HCl (Versed) 2 mg STK-MED ONCE .ROUTE ; Start 03/17/19 at 13:40; Stop 03/17/19 at 13:40; Status DC Fentanyl Citrate (Fentanyl 2ml Vial) 100 mcg STK-MED ONCE .ROUTE ; Start 03/17/19 at 13:40; Stop 03/17/19 at 13:40; Status DC Lidocaine HCl (Buffered Lidocaine 1%) 3 ml STK-MED ONCE .ROUTE ; Start 03/17/19 at 13:49; Stop 03/17/19 at 13:50; Status DC Lidocaine HCl (Buffered Lidocaine 1%) 3 ml 1X ONCE IJ Last administered on 03/17/19at 14:51; Start 03/17/19 at 14:45; Stop 03/17/19 at 14:46; Status DC Midazolam HCl (Versed) 2 mg 1X ONCE IV Last administered on 03/17/19at 14:52; Start 03/17/19 at 14:45; Stop 03/17/19 at 14:46; Status DC Fentanyl Citrate (Fentanyl 2ml Vial) 100 mcg 1X ONCE IV Last administered on 03/17/19at 14:51; Start 03/17/19 at 14:45; Stop 03/17/19 at 14:46; Status DC Cefazolin Sodium/ Dextrose 50 ml @ 100 mls/hr 1X PREOP PRN IV SEE COMMENTS Last administered on 03/18/19at 11:55; Start 03/18/19 at 06:00; Stop 03/19/19 at 14:01; Status DC Propofol 20 ml @ As Directed STK-MED ONCE IV ; Start 03/18/19 at 08:59; Stop 03/18/19 at 08:59; Status DC Lidocaine HCl (Lidocaine Pf 2% Vial) 5 ml STK-MED ONCE .ROUTE ; Start 03/18/19 at 08:59; Stop 03/18/19 at 08:59; Status DC Fentanyl Citrate (Fentanyl 2ml Vial) 100 mcg STK-MED ONCE .ROUTE ; Start 03/18/19 at 08:59; Stop 03/18/19 at 08:59; Status DC Ondansetron HCl (Zofran) 4 mg STK-MED ONCE .ROUTE ; Start 03/18/19 at 11:26; Stop 03/18/19 at 11:26; Status DC Dexamethasone Sodium Phosphate (Decadron) 4 mg STK-MED ONCE .ROUTE ; Start 03/18 at 11:26; Stop 03/18/19 at 11:26; Status DC Midazolam HCl (Versed) 2 mg STK-MED ONCE .ROUTE ; Start 03/18/19 at 11:46; Stop 03/18/19 at 11:46; Status DC Phenylephrine HCl (PHENYLEPHRINE in 0.9% NACL PF) 1 mg STK-MED ONCE IV ; Start 03/18/19 at 12:12; Stop 03/18/19 at 12:13; Status DC Ephedrine Sulfate (ePHEDrine PF IN SALINE SYRINGE) 50 mg STK-MED ONCE IV ; Start 03/18/19 at 12:22; Stop 03/18/19 at 12:23; Status DC Fentanyl Citrate (Fentanyl 2ml Vial) 100 mcg STK-MED ONCE .ROUTE ; Start 03/18/19 at 13:14; Stop 03/18/19 at 13:15; Status DC Potassium Chloride (Klor-Con) 40 meq 1X ONCE PO Last administered on 03/19/19at 08:28; Start 03/19/19 at 08:30; Stop 03/19/19 at 08:31; Status DC Rivaroxaban (Xarelto) 10 mg DAILYWSUP PO Last administered on 03/20/19at 17:25; Start 03/20/19 at 17:15 Info (Anti-Coagulation Monitoring By Pharmacy) 1 each PRN DAILY PRN MC SEE COMMENTS; Start 03/20/19 at 17:15 Active Scripts Active Xarelto (Rivaroxaban) 10 Mg Tablet 1 Tab PO DAILY 30 Days Glyburide 1.25 Mg Tablet 1.25 Mg PO BIDWMEALS Glucophage (Metformin Hcl) 500 Mg Tablet 500 Mg PO BIDWMEALS Hydrocodone-Apap 5-325 (Hydrocodone Bit/Acetaminophen) 1 Tab Tablet 1 Tab PO PRN Q4HRS PRN Reported Multi-Vitamin Daily (Multivitamin) 1 Each Tablet 1 Each PO DAILY Vitals/I & O Vital Sign - Last 24 Hours 03/20/19 03/20/19 03/20/19 03/20/19 15:00 17:25 18:37 19:25 Temp 98.2 98.4 98.2 98.4 Pulse 95 97 Resp 18 16 16 18 B/P (MAP) 152/73 (99) 160/82 (108) Pulse Ox 97 93 O2 Delivery Room Air Room Air Room Air Room Air 03/20/19 03/20/19 03/20/19 03/20/19 20:00 22:31 23:05 23:31 Temp 98.7 98.7 Pulse 87 Resp 18 B/P (MAP) 150/77 (101) Pulse Ox 92 O2 Delivery Room Air Room Air Room Air Room Air 03/21/19 03/21/19 03/21/19 03/21/19 03:08 05:25 06:25 07:00 Temp 97.7 98.0 97.7 98.0 Pulse 75 94 Resp 18 18 B/P (MAP) 138/72 (94) 137/85 (102) Pulse Ox 95 93 O2 Delivery Room Air Room Air Room Air Room Air 03/21/19 03/21/19 03/21/19 03/21/19 08:00 09:23 10:35 11:00 Temp 98.1 98.1 Pulse 74 Resp 16 16 18 B/P (MAP) 130/70 (90) Pulse Ox 97 O2 Delivery Room Air Room Air Room Air Room Air Intake and Output 03/20/19 03/20/19 03/21/19 15:00 23:00 07:00 Intake Total 240 ml 540 ml Output Total 700 ml Balance 240 ml -160 ml ESTHER BOURGEOIS MD Mar 21, 2019 12:46
--- NOTE | 2019-03-21 13:24 | PDOC ---
Provider Note Provider Note 68 yo man with lytic disease lt iliac and lt femur at dx. S/p BMBx 03/17/2019. CBC and Chem ok. IM sandra placement for left femur done 03/18/2019 with medullary bone bx. Both biopsies reveal carcinoma, subtype still pending Doing well post op. Await special stains on bx to ascertain likely primary source. Plan on post op RT after post op healing to lt femur approximately 2 weeks post op. We will call patient to make this appointment. FU with Dr. Braden in 2 weeks to discuss systemic RX dependent on final path. OK to DC now from my standpoint. Discussed with patient. LISBET CALIX MD Mar 21, 2019 13:24
--- NOTE | 2019-03-21 14:44 | NUR ---
Discharge instructions, belongings and follow up instructions reviewed with patient, verbalized understanding. Patient was escorted out via wheelchair by Heather LARA.
--- NOTE | 2019-03-21 14:56 | NUR ---
MIKI following. MIKI received phone call from RN stating pt does want home health now and does not want to do outpatient therapy. Pt did not have a preference as to which agency. MIKI faxed referral to [facility], awaiting confirmation. Pt discharged home.
--- NOTE | 2019-03-24 13:07 | PATHOLOGY ---
[facility] Accession Number: [id number] . 01 Material submitted: . femur - LEFT FEMUR LESION. Modifiers: left . 01 Clinical history: . None provided. . 02 Diagnosis: "Left femur lesion", bone curettage/biopsy: - FIBROUS CONNECTIVE TISSUE WITH METASTATIC CARCINOMA, CONSISTENT WITH METASTATIC ADENOCARCINOMA (SEE COMMENT). ([facility]; 03/21/2019) QTP 03/24/2019 1223 Local . 02 Comment: The tissue is histologically and morphologically similar to the corresponding left hip bone lesion biopsy ([id number]). In the current specimen, acinar / glandular formation is also noted. Immunohistochemical studies were performed on the previous biopsy. Clinical and radiographic correlation is required. The case is co-reviewed with Dr. Giovany Rivas. ([facility]; 03/21/2019) . 02 Electronically signed: . Lenora Romero MD, Pathologist NPI- [id number] . 01 Gross description: . Received in formalin labeled "Zafar Kyle, left femur lesion" is a 2.2 x 0.4 x 0.3 cm aggregate of sin-pink soft tissue. The specimen is submitted in cassette A1 without decalcification. ([facility]; 03/18/2019) [facility] 03/18/2019 1808 Local . 02 Pathologist provided ICD-10: C79.89 . 02 CPT . 080092 Specimen Comment: A courtesy copy of this report has been sent to [phone] Specimen Comment: [phone] Specimen Comment: Report sent to / DR BRUCE Performed at: 01 [facility] [address] [place] [address] [address], [place] [id number] MD Hardy Hickey MD Phone: [phone] Performed at: [address] [id number] MD Daniel Rivas MD Phone: [phone]
--- NOTE | 2019-03-24 13:07 | PATHOLOGY ---
[facility] Accession Number: [id number] . 01 Material submitted: . hip - LEFT HIP BONE LESION BIOPSY. Modifiers: left . 01 Clinical history: . Left hip lesion . 02 Diagnosis: "LT hip bone lesion biopsy", curettage: - FIBROUS CONNECTIVE TISSUE WITH METASTATIC CARCINOMA, FAVOR METASTATIC ADENOCARCINOMA. (SEE COMMENT) LBQ 03/21/2019 1216 Local . 02 Comment: Sections show fragments of fibrous connective tissue and blood clot. The fibrous connective tissue has an infiltrating malignant neoplasm. The tumor cells are large with abundant eosinophilic cytoplasm, irregular nuclear contours and are cohesive. . Properly controlled immunohistochemical stains are performed. . Block A1 CK SEFERINO - Tumor cells reactive; AE1/AE3 - Tumor cells reactive; TERE - Tumor cells reactive; CK7 - Tumor cells reactive; CK20 - Tumor cells non-reactive; Philippe-EP4 - Tumor cells reactive; CK19 - Tumor cells reactive; Thrombomodulin - Tumor cells with possible focal and weak reactivity; TTF-1 - Tumor cells non-reactive; CDX-2 - Tumor cells non-reactive; PSA - Tumor cells non-reactive; PSAP - Tumor cells non-reactive; S100 - Tumor cells non-reactive; MART-1 - Tumor cells non-reactive; Napsin-A - Tumor cells non-reactive; PAX8 - Tumor cells non-reactive; Hepatocyte - Tumor cells non-reactive . Overall, the diagnosis is metastatic carcinoma favoring metastatic adenocarcinoma. The primary site is difficult to determine. Possible primary sites include the pancreatobiliary system, upper aerodigestive system and urinary bladder. Clinical and radiographic correlation is required. The case is co-reviewed with Dr. Daniel Rivas. The case is discussed preliminarily with Dr. Gurpreet Bourgeois on 03/20/19 in the morning and again with Dr. Vazquez on 03/21/19 at approximately 10:30 AM. (CLW/db; 03/21/2019) . . 02 Electronically signed: . Lenora Romero MD, Pathologist NPI- [id number] . 01 Gross description: . The specimen is received in formalin labeled "Zafar Kyle, hip bone lesion biopsy". The specimen source is listed on the requisition as "Lt hip bone lesion biopsy". Received is a 1.8 x 1.5 x 0.2 cm aggregate of solidified blood clot containing scant pale sin possible soft tissue fragments. Bone is not identified grossly. The specimen is submitted entirely in cassette A1. (DAC; 03/18/2019) XDC/XDC 03/18/2019 0727 Local . 02 Pathologist provided ICD-10: C79.89 . 02 CPT . 400568, H99125, [id number] Specimen Comment: A courtesy copy of this report has been sent to [phone] Specimen Comment: [phone], , Specimen Comment: Report sent to ,DR BOURGEOIS,DR BRUCE / DR DEL TORO Performed at: 01 [facility] [address], [place] [id number] MD Hardy Hickey MD Phone: [phone] Performed at: 02 [facility] [address] [place], [place] [id number] MD Daniel Rivas MD Phone: [phone]
== END 2019-03-21 15:41 | disposition home health service (06) | DRG 478 ==
LOC: ER 13:35 → 5 SOUTH 15:56 → 4 NORTH 03-18 13:46
PROVIDERS: ADMIT Internal Medicine; ATTEND Internal Medicine
PROC: 0QB33ZX Excision of Left Pelvic Bone, Percutaneous Approach, Diagnostic (ICD-10-PCS; principal; 2019-03-17)
PROC: 0QH736Z Insertion of Intramedullary Internal Fixation Device into Left Upper Femur, Percutaneous Approach (ICD-10-PCS; 2019-03-18)
DX: M84.552A Pathological fracture in neoplastic disease, left femur, initial encounter for fracture (principal); C79.51 Secondary malignant neoplasm of bone; C90.00 Multiple myeloma not having achieved remission; D69.6 Thrombocytopenia, unspecified; E11.65 Type 2 diabetes mellitus with hyperglycemia; E66.9 Obesity, unspecified; I10 Essential (primary) hypertension; N28.1 Cyst of kidney, acquired; N40.0 Benign prostatic hyperplasia without lower urinary tract symptoms; Z68.31 Body mass index [BMI] 31.0-31.9, adult; Z72.0 Tobacco use; Z82.49 Family history of ischemic heart disease and other diseases of the circulatory system; Z85.828 Personal history of other malignant neoplasm of skin; Z83.3 Family history of diabetes mellitus
CPT/HCPCS: 20225; 36415; 70450; 71260; 72100; 73502; 73564; 74177; 76000; 77012; 77075; 78306; 80048; 80053; 82784; 82962; 83036; 83520; 84165; 85025; 85610; 85730; 86334; 88307; 88341; 88342; 99152; 99153; A7015; A9503; C1713; C1887; G0103; J0171; J0696; J0780; J1100; J1815; J2001; J2250; J2270; J2370; J2405; J2704; J3010; J7030; J7120; J7512; Q9966; Q9967; 97110; 97116; 97535; 99285-25; G0378

== ENCOUNTER → 2019-04-04 | Outpatient (CLI) | payer OTHER, MEDICARE ==
[2019-03-21 11:00] VITALS: BP 130/70
[~2019-04-04] MED LIST: ASPI325T8 PO; GLYB1.252 PO; HYDR-2761 PO; METF500T PO; MULT-246 PO; NAPR220T70 PO; RIVA10TA PO
--- NOTE | 2019-04-04 16:43 | RAD ---
EXAM: PET/CT SKULL BASE TO MID THIGH. HISTORY: Adenocarcinoma of unknown primary. COMPARISON: 03/14/2019. TECHNIQUE: CT was performed from the skull base through the mid thighs for the purposes of attenuation correction. 14.1 mCi F-18 fluorodeoxyglucose (FDG) was administered intravenously. After an uptake period, positron emission tomography was performed from the skull base through the mid thighs. The PET and CT data were fused and interpreted in combination a dedicated workstation. Blood glucose level was 98 mg/dL at the time of FDG administration. FINDINGS: Multiple osseous metastatic deposits are noted within the midline sacrum, left iliac wing, the left posterior 12th rib, the sternal manubrium and T2. A few small additional rib and spinal lesions are also suspected. Maximum SUV is 8.9 within the left iliac wing. Foci of uptake along the skin of the right anterior shoulder and the left posterior shoulder may reflect cutaneous lesions or artifact. The left posterior shoulder lesion demonstrates maximum SUV 5.5. A hypermetabolic mass in hepatic segment 6 demonstrates maximum SUV 5.6. Additional CT findings include changes of internal fixation of the left proximal femoral fracture. There is diffuse bladder wall thickening, likely reflecting chronic outlet obstruction or inflammation. The prostate is moderately enlarged. Diffuse colonic hypermetabolism is nonfocal and likely reflect peristalsis or inflammation. Diffuse hepatic steatosis appears moderate. The spleen is mildly enlarged at 15 cm. Coronary atherosclerotic calcifications are noted. IMPRESSION: 1. Lytic osseous metastatic disease as above. 2. Hypermetabolic mass and hepatic segment 6 measuring approximately 5 cm. Neck side 3. Hypermetabolic skin lesions along the left posterior shoulder and right anterior shoulder. Correlate with physical examination.
== END | disposition home or self-care (01) ==
LOC: PETSC 11:30
PROVIDERS: ATTEND Radiology Radiation Oncology
DX: C90.00 Multiple myeloma not having achieved remission (principal); C79.51 Secondary malignant neoplasm of bone; K76.0 Fatty (change of) liver, not elsewhere classified; R16.1 Splenomegaly, not elsewhere classified; I25.10 Atherosclerotic heart disease of native coronary artery without angina pectoris
CPT/HCPCS: 78815; A9552

== ENCOUNTER → 2019-04-16 | Outpatient (CLI) | payer OTHER, MEDICARE ==
[2019-03-21 11:00] VITALS: BP 130/70
[~2019-04-16] MED LIST changes: +GADOTERATE 7.5 MMOL/15ML VIAL. IVP ONE
--- NOTE | 2019-04-16 16:47 | RAD ---
MRI abdomen with and without contrast: Clinical indications: Liver lesion. History of multiple myeloma.. Technique: T1 and T2 weighted MRI sequences of the abdomen was performed in the axial and coronal planes. In phase and out of phase MRI sequences were performed as well. After IV infusion of 20 mL of Dotarem, postcontrast enhanced T1 weighted MRI sequences of the abdomen were performed. COMPARISON: Abdomen CT dated March 14, 2019. PET/CT dated April 04, 2019. Findings: Diffuse fatty infiltration of the liver is seen. On the diffusion weighted sequence, there is restricted diffusion within the posterior medial aspect of the posterior segment of the right lobe of liver segment 6. This area demonstrates ill-defined increased T2 signal and low signal on the T1-weighted images. There is heterogeneous enhancement of this mass with a contour bulge. This mass measures 6.2 cm in AP dimension and 5.0 cm in transverse dimension. There are additional areas of nodular enhancement more laterally within the posterior segment of the right lobe of liver consistent with additional hepatic metastasis. There is an additional enhancing lesion seen with segment 5 more anteriorly measuring 2.5 cm. There are additional scattered small enhancing nodules of the anterior and posterior segments of the right lobe of the liver and the medial segment of the left lobe of the liver and the lateral aspect of the caudate lobe. These lesions are best seen on the arterial phase portion of the study. Findings are consistent with additional hepatic metastatic disease. The spleen is enlarged measuring 14.2 cm in length. There is artifact of the left lateral chest wall and left anterior lateral abdominal wall related to a metallic BB by history. No pancreatic mass is seen. No adrenal mass is evident. Nonenhancing right renal cyst is seen. No hydronephrosis is evident. The gallbladder is normal and no extrahepatic biliary ductal dilatation is seen. No aneurysmal dilatation of the abdominal aorta is seen. No enlarged abdominal lymphadenopathy is evident. No ascites is evident. Enhancing nodules of the lumbar spine are seen consistent with osseous metastatic disease. This involves L2 and L3. There is also a small enhancing lesion of T12. IMPRESSION: Multiple hepatic metastasis. Largest lesion seen within segment 6. Osseous metastatic disease. Splenomegaly. Electronically signed by: Kaden Reilly MD (04/16/2019 4:44 PM) [facility]
== END | disposition home or self-care (01) ==
LOC: MRI 10:48
PROVIDERS: ATTEND Radiology Radiation Oncology
DX: C78.7 Secondary malignant neoplasm of liver and intrahepatic bile duct (principal); C79.51 Secondary malignant neoplasm of bone; C80.1 Malignant (primary) neoplasm, unspecified; K76.0 Fatty (change of) liver, not elsewhere classified; R16.1 Splenomegaly, not elsewhere classified; Z79.01 Long term (current) use of anticoagulants; Z85.820 Personal history of malignant melanoma of skin
CPT/HCPCS: 74183; A9575